=== PATIENT | female | born 1955 | race Caucasian/White ===

== ENCOUNTER 2016-09-30 15:53 | Emergency (ER) | payer BC | END 2016-09-30 16:30 | disposition left against medical advice (07) | LOC: UCEAST 15:53 | DX: M25.529 Pain in unspecified elbow (principal); M79.646 Pain in unspecified finger(s); Z53.21 Procedure and treatment not carried out due to patient leaving prior to being seen by health care provider ==

== ENCOUNTER 2019-03-18 09:41 | Emergency (ER) | payer OTHER ==
[2019-03-18 09:57] VITALS: BP 156/80
--- NOTE | 2019-03-18 10:14 | UC ---
General HPI - HPI Summary HPI Summary: CHIEF COMPLAINT and HPI: This is a 63-year-old female who comes to the urgent care Center with a complaint of increasing body aches, fever, slight sore throat , and frontal headache over the past 3 days. She works at [employer] and came home from work 3 days ago. She stayed home yesterday and she continues to feel achy, fatigued, and feverish. Although she is a one pack per day smoker, she denies chest pain, shortness of breath, increasing cough or other symptoms consistent with COPD. She has used albuterol inhaler in the past. She does have a history of hypertension and diabetes. VITAL SIGNS & SaO2 REVIEWED. Within normal limits unless noted here. 156/80; ojgvt=547; hict=985.8 NURSES NOTE REVIEWED: "Pt c/o flu-like sx: fever, chills that started last 03/16." - History of Current Complaint Chief Complaint: UCGeneralIllness Stated Complaint: FEVER Time Seen by Provider: 03/18/19 10:02 Hx Last Menstrual Period: Years. Pain Intensity: 6 - Allergy/Home Medications Allergies/Adverse Reactions: Allergies Allergy/AdvReac Type Severity Reaction Status Date / Time No Known Allergies Allergy Verified 03/18/19 09:49 Home Medications: Home Medications glipiZIDE TAB* [Glucotrol TAB*] 5 mg PO DAILY 03/18/19 [History Confirmed ] PMH/Surg Hx/FS Hx/Imm Hx - Additional Past Medical History Additional PMH: PAST MEDICAL HISTORY- CHRONIC and RECURRENT HEALTH PROBLEM LIST REVIEWED. Information relevant to present complaint: diabetes, one pack per day smoker, hypertension. VISIT HISTORY REVIEWED: MEDICATIONS & ALLERGIES REVIEWED. 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 Other History Of: Negative For: HIV, Hepatitis B, Hepatitis C - Surgical History Surgical History: Yes Surgery Procedure, Year, and Place: L-SPINE. . LASER LITHOTRIPSY FOR KIDNEY STONES - Family History Known Family History: Positive: None - Social History Alcohol Use: None Substance Use Type: None Smoking Status (MU): Heavy Every Day Tobacco Smoker Amount Used/How Often: 1 PPD Review of Systems All Other Systems Reviewed And Are Negative: Yes Constitutional: Positive: Fever, Chills, Fatigue Skin: Positive: Negative. Negative: Rash Eyes: Positive: Negative ENT: Positive: Negative Respiratory: Positive: Negative. Negative: Shortness Of Breath, Cough Cardiovascular: Positive: Negative. Negative: Palpitations, Chest Pain Gastrointestinal: Positive: Negative. Negative: Abdominal Pain, Vomiting, Nausea Genitourinary: Positive: Negative. Negative: Dysuria Motor: Positive: Negative Neurovascular: Positive: Negative Musculoskeletal: Positive: Negative Neurological: Positive: Headache - frontal headache, mild Is Patient Immunocompromised?: No Physical Exam - Summary Physical Exam Summary: Appearance: The patient is well-nourished. Patient is lying down and appears uncomfortable. Her neck is supple. She is normally conversant. Eyes: Conjunctiva are clear. Pupils are equal and reactive to light and accommodation. Extra ocular muscle movement is intact. ENT: The hearing is grossly normal, the pharynx is normal, and the TMs are normal. There is no muffled or hoarse voice. No stridor. Neck: The neck is supple and there is no lymphadenopathy. Respiratory: The chest is non-tender to palpation and without crepitus. The lungs are clear, there are normal breath sounds, and there is no respiratory distress. No wheezes, rales or rhonchi. Cardiovascular: Heart sounds reveal a regular rate and rhythm. There are no clicks, rubs or murmurs. There are no carotid bruits or thrills. Circulation is grossly intact.patient is tachycardic. Abdomen: The abdomen is soft and nontender. There is no organomegaly. Bowel sounds are present and within normal limits. No point tenderness at McBurneys point. No CVA tenderness. Musculoskeletal: Strength is intact. The patient moves all extremities. Neurological: The patient is alert. Motor and sensory are examination grossly intact. Speech is normal. Psychological: The patient displays age appropriate behavior, and is conversant. GCS=15. Skin: Negative for rashes. Triage Information Reviewed: Yes Vital Signs: Initial Vital Signs Temp 100.8 F 03/18/19 09:51 Pulse 125 03/18/19 09:51 Resp 20 03/18/19 09:51 BP 156/80 03/18/19 09:51 Pulse Ox 96 03/18/19 09:51 Course/Dx - Course Course Of Treatment: This is a 63-year-old female who comes to the urgent care Center with a complaint of increasing body aches, fever, slight sore throat, and frontal headache over the past 3 days. She works at [employer] and came home from work 3 days ago. She stayed home yesterday and she continues to feel achy, fatigued, and feverish. Although she is a one pack per day smoker, she denies chest pain, shortness of breath, increasing cough or other symptoms consistent with COPD. She has used albuterol inhaler in the past. She does have a history of hypertension and diabetes. VITAL SIGNS & SaO2 REVIEWED. Within normal limits unless noted here. 156/80; kifxq=612; qyva=008.8 RAPID STREP: NEGATIVE; FLU=NEGATIVE. NO ORTHOSTASIS on sitting and standing. My diagnosis is viral syndrome. I discussed this with patient and encouraged her to increase hydration and use ibuprofen and acetaminophen for discomfort. - Differential Dx - Multi-Symptom Differential Diagnoses: Urinary Tract Infection, Other - influenza, pneumonia, exacerbation of COPD, viral syndrome - Diagnoses Provider Diagnosis: Viral syndrome Discharge ED - Sign-Out/Discharge Documenting (check all that apply): Patient Departure All imaging exams completed and their final reports reviewed: No Studies - Discharge Plan Condition: Stable Disposition: HOME Patient Education Materials: Viral Syndrome (ED) Forms: *Work Release Referrals: Elissa Winkler MD [Primary Care Provider] - Additional Instructions: WE DISCUSSED: PLEASE SEEK CARE AT THE EMERGENCY DEPARTMENT IF SYMPTOMS WORSEN OR IF NEW SYMPTOMS DEVELOP. FOLLOW UP WITH YOUR PRIMARY CARE PHYSICIAN IF CONDITION CONTINUES BEYOND 3 DAYS WITHOUT IMPROVEMENT. YOUR DIAGNOSIS IS: viral syndrome. OTHER INSTRUCTIONS: Hypertension Discharge Instructions: Your blood pressure reading today was 156/80, indicating HYPERTENSION. Follow- up with your primary care provider within 4 weeks for blood pressure check and appropriate recommendations and treatment, as needed. TREATMENT: SEE ATTACHED INSTRUCTIONS. FOR PAIN AND/OR SLEEP: For pain: Ibuprofen (Motrin and other brand names) 400-600mg PLUS acetaminophen (Tylenol and other brand names) 500mg - 1000mg every 8 hours. benadryl, DIPHENHYDRAMINE, CAN ALSO HELP YOU SLEEP. - Billing Disposition and Condition Condition: STABLE Disposition: Home
[2019-03-18 10:35] LABS: Influenza A Molecular NEGATIVE (Negative); Influenza B Molecular NEGATIVE (Negative)
== END 2019-03-18 11:14 | disposition home or self-care (01) ==
LOC: UCEAST 09:41
DX: B34.9 Viral infection, unspecified (principal); R51 Headache
CPT/HCPCS: 87651; 99211; G0463

== ENCOUNTER 2019-03-18 19:20 | Inpatient (IN) | payer OTHER ==
[2019-03-18 22:21] LABS: Hematocrit 42 % (35-47); Mean Corpuscular HGB Conc 33 g/dL (31-36); Mean Corpuscular Hemoglobin 27 pg (27-31); Mean Corpuscular Volume 82 fL (80-97); Mean Platelet Volume 8.7 fL (7.4-10.4); Platelet Count 164 10^3/uL (150-450); Red Blood Count 5.11 10^6 /uL (3.70-4.87); Red Cell Distribution Width 14 % (10-15); White Blood Count 12.2 10^3/uL (3.5-10.8)
[2019-03-18 22:24] LABS: ABS Basophils 0.1 10^3/ul (0-0.2); ABS Lymphocytes 0.5 10^3/ul (1.0-4.8); ABS Monocytes 0.5 10^3/ul (0-0.8); ABS Neutrophils 11.1 10^3/ul (1.5-7.7)
[2019-03-18 22:30] LABS: INR 1.26 (0.82-1.09)
[2019-03-18 22:41] LABS: ALT 21 U/L (7-52); AST 26 U/L (13-39); Albumin 3.6 g/dL (3.2-5.2); Alkaline Phosphatase 63 U/L (34-104); Anion Gap 9 mmol/L (2-11); BUN/Creatinine Ratio 18.8 (8-20); Blood Urea Nitrogen 15 mg/dL (6-24); C Reactive Protein 399.05 mg/L (<8.01); CO2 Carbon Dioxide 21 mmol/L (22-32); Calcium 9.1 mg/dL (8.6-10.3); Chloride 95 mmol/L (101-111); EGFR African American 87.9 (>60); EGFR Non-African American 72.7 (>60); Globulin 3.5 g/dL (2-4); Glucose 287 mg/dL (70-100); Potassium 3.8 mmol/L (3.5-5.0); Sodium 125 mmol/L (135-145); Total Protein 7.1 g/dL (6.4-8.9)
[2019-03-18 22:45] LABS: Lymphocyte % 4.2 %
[2019-03-18] MEDS ORDERED: Acetaminophen TAB* 325 MG PO ONE (22:56)
[2019-03-18] MEDS ORDERED: cefTRIAXone(*) 2 GM in NS 0.9% 100 ML* 100 ML IVPB ONE (22:57)
--- NOTE | 2019-03-18 23:01 | ED ---
Abdominal Pain/Female - HPI Summary HPI Summary: The patient is a 63 y/o F presenting to [facility] accompanied by grandson with a chief complaint of sudden onset left flank and low left back pain onset at 1700 tonight. She reports that she has been suffering from a head cold with symptoms including a cough, rhinorrhea, and sinus congestion. She went to [facility] for these symptoms this morning, and she was diagnosed with a viral infection and discharged home. She then went home and took a nap but woke up with left flank pain. She is now additionally c/o fever, weakness, mild SOB, and decreased appetite. Currently, her symptoms are rated 4/10 in severity. PMHx : DM, HTN, kidney stones with lithotripsy. Heavy everyday cigarette smoker, no EtOH, no substance use. Medications reviewed. Allergies noted. - History of Current Complaint Chief Complaint: EDFlankPain Stated Complaint: THINKS SHE HAS A KIDNEY INF PER PT Time Seen by Provider: 03/18/19 22:49 Hx Obtained From: Patient, Family/Display Associate - grandson Hx Last Menstrual Period: Years. Onset/Duration: Sudden Onset - flank and back pain, Lasting Hours, Still Present Timing: Hours Severity Initially: Mild Severity Currently: Moderate Pain Intensity: 4 Pain Scale Used: 0-10 Numeric Location: Flank - left Radiates: Yes Radiates to: Back - low left Character: Dull Aggravating Factor(s): Nothing Alleviating Factor(s): Nothing Associated Signs and Symptoms: Positive: Fever, Cough, Decreased Appetite, Other : - weakness, mild SOB, rhinorrhea, sinus congestion Allergies/Adverse Reactions: Allergies Allergy/AdvReac Type Severity Reaction Status Date / Time No Known Allergies Allergy Verified 03/18/19 19:27 PMH/Surg Hx/FS Hx/Imm Hx Endocrine/Hematology History: Reports: Hx Diabetes Denies: Hx Thyroid Disease Cardiovascular History: Reports: Hx Hypertension Denies: Hx Congestive Heart Failure, Hx Deep Vein Thrombosis, Hx Myocardial Infarction, Hx Pacemaker/ICD Respiratory History: Denies: Hx Asthma, Hx Chronic Obstructive Pulmonary Disease (COPD), Hx Lung Cancer, Hx Pneumonia, Hx Pulmonary Embolism GI History: Denies: Hx Gall Bladder Disease, Hx Gastrointestinal Bleed, Hx Ulcer, Hx Urosepsis History: Reports: Hx Kidney Stones Denies: Hx Renal Disease Musculoskeletal History: Denies: Hx Osteoporosis Opthamlomology History: Reports: Hx Contacts or Glasses Neurological History: Denies: Hx Dementia, Hx Migraine, Hx Seizures, Hx Transient Ischemic Attacks (TIA) Psychiatric History: Denies: Hx Anxiety, Hx Depression, Hx Schizophrenia, Hx Bipolar Disorder - Cancer History Hx Chemotherapy: No Hx Radiation Therapy: No - Surgical History Surgical History: Yes Surgery Procedure, Year, and Place: L-SPINE. . LASER LITHOTRIPSY FOR KIDNEY STONES Infectious Disease History: No Infectious Disease History: Denies: History Other Infectious Disease, Traveled Outside the [place] in Last 30 Days - Family History Known Family History: Negative: Cardiac Disease, Hypertension, Diabetes - Social History Alcohol Use: None Hx Substance Use: No Substance Use Type: Reports: None Hx Tobacco Use: Yes Smoking Status (MU): Heavy Every Day Tobacco Smoker Type: Cigarettes Amount Used/How Often: 1 PPD Review of Systems Positive: Fever Positive: Other - rhinorrhea, sinus congestion Positive: Shortness Of Breath, Cough Positive: Other - decreased appetite Positive: flank pain - left Positive: Other - low left back pain Positive: Weakness All Other Systems Reviewed And Are Negative: Yes Physical Exam - Summary Physical Exam Summary: Appearance: Ill-appearing, Well-nourished, lying in bed comfortably but somewhat somnolent although easy to arouse Skin: Warm, dry, no obvious rash Eyes: sclera anicteric, no conjunctival pallor ENT: mucous membranes moist, pharynx appears normal Neck: Supple, nontender Respiratory: Clear to auscultation, no signs of respiratory distress Cardiovascular: Tachycardic in mid 120s. No murmurs. Normal distal pulses in tibial and radial bilaterally. Abdomen: Soft, nontender, normal active bowel sounds present Musculoskeletal: No CVA tenderness, Normal, Strength/ROM Intact Neurological: A&Ox3, awake and alert, mentation is normal, speech is fluent and appropriate Psychiatric: affect is normal, does not appear anxious or depressed Triage Information Reviewed: Yes Vital Signs On Initial Exam: Initial Vitals Temp Pulse Resp BP Pulse Ox 102.1 F 138 20 153/97 95 03/18/19 19:26 03/18/19 19:26 03/18/19 19:26 03/18/19 19:26 03/18/19 19:26 Vital Signs Reviewed: Yes Diagnostics - Vital Signs Vital Signs Temp Pulse Resp BP Pulse Ox 09/21/19 19:26 102.1 F 138 20 153/97 95 - Laboratory Lab Results: Lab Results 03/18/19 03/18/19 03/18/19 Range/Units 22:05 22:05 22:05 WBC 12.2 H (3.5-10.8) 10^3/uL RBC 5.11 H (3.70-4.87) 10^6 /uL Hgb 14.0 (12.0-16.0) g/dL Hct 42 (35-47) % MCV 82 (80-97) fL MCH 27 (27-31) pg MCHC 33 (31-36) g/dL RDW 14 (10-15) % Plt Count 164 (150-450) 10^3/uL MPV 8.7 (7.4-10.4) fL Neut % (Auto) 91.2 % Lymph % (Auto) 4.2 % [place] % (Auto) 4.2 % Eos % (Auto) 0.0 % Baso % (Auto) 0.4 % Absolute Neuts (auto) 11.1 H (1.5-7.7) 10^3/ul Absolute Lymphs (auto) 0.5 L (1.0-4.8) 10^3/ul Absolute Monos (auto) 0.5 (0-0.8) 10^3/ul Absolute Eos (auto) 0.0 (0-0.6) 10^3/ul Absolute Basos (auto) 0.1 (0-0.2) 10^3/ul Absolute Nucleated RBC 0.0 10^3/ul Nucleated RBC % 0.0 INR (Anticoag Therapy) 1.26 H (0.82-1.09) Sodium 125 L (135-145) mmol/L Potassium 3.8 (3.5-5.0) mmol/L Chloride 95 L (101-111) mmol/L Carbon Dioxide 21 L (22-32) mmol/L Anion Gap 9 (2-11) mmol/L BUN 15 (6-24) mg/dL Creatinine 0.80 (0.51-0.95) mg/dL Est GFR ( Amer) 87.9 (>60) Est GFR (Non-Af Amer) 72.7 (>60) BUN/Creatinine Ratio 18.8 (8-20) Glucose 287 H (70-100) mg/dL Lactic Acid (0.5-2.0) mmol/L Calcium 9.1 (8.6-10.3) mg/dL Total Bilirubin 0.40 (0.2-1.0) mg/dL AST 26 (13-39) U/L ALT 21 (7-52) U/L Alkaline Phosphatase 63 (34-104) U/L Troponin I 0.10 H* (<0.04) ng/mL C-Reactive Protein 399.05 H (<8.01) mg/L Total Protein 7.1 (6.4-8.9) g/dL Albumin 3.6 (3.2-5.2) g/dL Globulin 3.5 (2-4) g/dL Albumin/Globulin Ratio 1.0 (1-3) 03/18/19 Range/Units 22:05 WBC (3.5-10.8) 10^3/uL RBC (3.70-4.87) 10^6 /uL Hgb (12.0-16.0) g/dL Hct (35-47) % MCV (80-97) fL MCH (27-31) pg MCHC (31-36) g/dL RDW (10-15) % Plt Count (150-450) 10^3/uL MPV (7.4-10.4) fL Neut % (Auto) % Lymph % (Auto) % [place] % (Auto) % Eos % (Auto) % Baso % (Auto) % Absolute Neuts (auto) (1.5-7.7) 10^3/ul Absolute Lymphs (auto) (1.0-4.8) 10^3/ul Absolute Monos (auto) (0-0.8) 10^3/ul Absolute Eos (auto) (0-0.6) 10^3/ul Absolute Basos (auto) (0-0.2) 10^3/ul Absolute Nucleated RBC 10^3/ul Nucleated RBC % INR (Anticoag Therapy) (0.82-1.09) Sodium (135-145) mmol/L Potassium (3.5-5.0) mmol/L Chloride (101-111) mmol/L Carbon Dioxide (22-32) mmol/L Anion Gap (2-11) mmol/L BUN (6-24) mg/dL Creatinine (0.51-0.95) mg/dL Est GFR ( Amer) (>60) Est GFR (Non-Af Amer) (>60) BUN/Creatinine Ratio (8-20) Glucose (70-100) mg/dL Lactic Acid 1.9 (0.5-2.0) mmol/L Calcium (8.6-10.3) mg/dL Total Bilirubin (0.2-1.0) mg/dL AST (13-39) U/L ALT (7-52) U/L Alkaline Phosphatase (34-104) U/L Troponin I (<0.04) ng/mL C-Reactive Protein (<8.01) mg/L Total Protein (6.4-8.9) g/dL Albumin (3.2-5.2) g/dL Globulin (2-4) g/dL Albumin/Globulin Ratio (1-3) Result Diagrams: 03/20/19 05:20 03/20/19 05:20 Lab Statement: Any lab studies that have been ordered have been reviewed, and results considered in the medical decision making process. - Radiology CXR Radiology Interpretation Completed By: ED Physician Summary of Radiographic Findings: Possible right lower lobe PNA seen on the lateral view with loss of hemidiaphragm. ED physician has interpreted this report. Pending official read. - CT Abd/Pel CT CT Interpretation Completed By: Radiologist Summary of CT Findings: Impression: 1. Right lower lobe pneumonia. 2. Moderate hepatic steatosis (14-28% fat fraction). 3. Indeterminate right adrenal nodule. If patient has no cancer history, consider follow-up adrenal CT or resection. If patient has a history of cancer, consider biopsy or PET/CT for patients with cancer history. ED physician has reviewed this report. - EKG 2355 Cardiac Rate: Other Rate - 133 bpm Summary of EKG Findings: EKG at 2355 with rate of 133 bpm and unclear rhythm, possible MAT. No STEMI. Re-Evaluation - Re-Evaluation First Eval Re-Evaluation Time: 01:35 Comment: We discussed all results with plan for admission. Abdominal Pain Fem Course/Dx - Course Course Of Treatment: Pt is a 63 y/o F with cc of URI symptoms and new onset left flank and low left back pain at 1700 tonight accompanied by fever, weakness , mild SOB, and decreased appetite. Upon physical exam, the pt is ill-appearing and somewhat somnolent but easily arousable without any CVA tenderness, although she exhibits tachycardia in the mid 120s. Blood work reveals WBCs 12.2 , RBCs 5.11, abs netus 11.1, abs lymphs 0.5, INR 1.26, ssdium 125, chloride 95, carbon dioxide 21, glucose 287, troponin 0.10, and CRP 399.05. UA obtained and is consistent with infection revealing 3+ protein, 1+ ketones, 2+ blood, 3+ RBCs , presence of RBCs casts, and 3+ glucose. EKG at 2355 with rate of 133 bpm and unclear rhythm, possible MAT. Chest x-ray, per my interpretation, reveals possible right lower lobe PNA seen on the lateral view with loss of hemidiaphragm. Abdomen/Pelvic CT reveals right lower lobe PNA with moderate hepatic steatosis and indeterminate right adrenal nodule. I discussed the pts case with Dr. Diaz, hospitalist, and he accepts the pt for admission. She understands and agrees with this plan. Dx is right lower lobe PNA. 40 minutes CCT. - Diagnoses Provider Diagnoses: Right lower lobe pneumonia - Provider Notifications Discussed Care Of Patient With: Jaswinder Diaz - hospitalist Time Discussed With Above Provider: 01:30 Instructed by Provider To: Admit As Observation - After discussing the pt's case , Dr. Diaz accepts the pt for admission. - Critical Care Time Critical Care Time: 30-74 min - 40 minutes Discharge ED - Sign-Out/Discharge Documenting (check all that apply): Patient Departure - Patient accepted for admission by Dr. Diaz. Patient Received Moderate/Deep Sedation with Procedure: No - Discharge Plan Condition: Stable Disposition: ADMITTED TO [facility] - Billing Disposition and Condition Condition: STABLE Disposition: Admitted to [facility] - Attestation Statements Document Initiated by Scribe: Yes Documenting Scribe: Danica Jamison Provider For Whom Maribel is Documenting (Include Credential): Dr. Chidi Morton MD Scribe Attestation: Danica Oconnell, scribed for Dr. Chidi Morton MD on 03/20/19 at 0649. Scribe Documentation Reviewed: Yes Provider Attestation: The documentation as recorded by the [email or web address] accurately reflects the service I personally performed and the decisions made by me, Dr. Chidi Morton MD Status of Scribe Document: Viewed
[2019-03-18 23:34] LABS: Urine Appearance Cloudy; Urine Bacteria Absent (Absent); Urine Bilirubin Negative (Negative); Urine Blood 2+ (Negative); Urine Color Amber; Urine Glucose 3+(>=500 mg/dL) (Negative); Urine Ketones 1+ (Negative); Urine Nitrite Negative (Negative); Urine Protein 3+(>=500 mg/dL) (Negative); Urine Red Blood Cell 3+(>10/hpf) (Absent); Urine Red Blood Cell Casts Present (Absent); Urine Specific Gravity 1.028 (1.010-1.030); Urine Urobilinogen Negative (Negative); Urine White Blood Cell Trace(0-5/hpf) (Absent)
[2019-03-19] MEDS ORDERED: NS 0.9% 1000 ML** 2,000 ML IV ONE (00:04)
[2019-03-19] MEDS ORDERED: Azithromycin 500 mg/250 ml NS 500 MG/250 ML BAG IVPB ONE (00:29)
[2019-03-19] MEDS ORDERED: Albuterol/Ipratropium NEB.SOL* Albuterol 2.5 MG/Ipratropium 0.5 MG 3 ML ONE (04:48)
[2019-03-19] MEDS: Albuterol/Ipratropium NEB.SOL* Albuterol 2.5 MG/Ipratropium 0.5 MG 3 ML INH SCH ×2 (04:53→07:38)
[2019-03-19] MEDS ORDERED: Dextrose 50% VIAL 50 ml IV PUSH PRN (04:59)
[2019-03-19] MEDS ORDERED: methylPREDNISolone SOD 40 MG* 1 ML VIAL IV SCH (05:00)
[2019-03-19 05:08] LABS: ABS Lymphocytes 0.6 10^3/ul (1.0-4.8); ABS Monocytes 0.4 10^3/ul (0-0.8); ABS Neutrophils 9.4 10^3/ul (1.5-7.7); Eosinophil % 0.1 %; Hematocrit 40 % (35-47); Lymphocyte % 6.2 %; Mean Corpuscular HGB Conc 35 g/dL (31-36); Mean Corpuscular Hemoglobin 29 pg (27-31); Mean Corpuscular Volume 83 fL (80-97); Mean Platelet Volume 8.6 fL (7.4-10.4); Nucleated Red Blood Cells % 0.1; Platelet Count 140 10^3/uL (150-450); Red Blood Count 4.88 10^6 /uL (3.70-4.87); Red Cell Distribution Width 14 % (10-15); White Blood Count 10.4 10^3/uL (3.5-10.8)
[2019-03-19 05:27] LABS: Anion Gap 10 mmol/L (2-11); BUN/Creatinine Ratio 21.4 (8-20); Blood Urea Nitrogen 15 mg/dL (6-24); CO2 Carbon Dioxide 18 mmol/L (22-32); Calcium 8.1 mg/dL (8.6-10.3); Chloride 103 mmol/L (101-111); Cholesterol 97 mg/dL; EGFR African American 102.6 (>60); EGFR Non-African American 84.8 (>60); Glucose 228 mg/dL (70-100); HDL Cholesterol 45.6 mg/dL; LDL Cholesterol 28 mg/dL; Potassium 3.8 mmol/L (3.5-5.0); Sodium 131 mmol/L (135-145); Triglycerides 115 mg/dL
[2019-03-19] MEDS: Acetaminophen TAB* 325 MG PO PRN ×3 (05:28→20:23)
[2019-03-19 05:38] LABS: Troponin I 0.06 ng/mL (<0.04)
[2019-03-19] MEDS: Lactated Ringers 1000 ML Bag* 1,000 ML IV SCH ×2 (06:04→15:45)
[2019-03-19] MEDS: Enoxaparin(*) 40 MG/0.4 ML SYR SUBCUT SCH (06:04)
[2019-03-19] MEDS ORDERED: Diltiazem IV push/loading dose 5 MG/ML 5 ML vial (25 mg) IV SLOW PU ONE (06:32)
[2019-03-19] MEDS: Mometasone 220 MCG MDI INH SCH ×2 (07:38→20:05)
[2019-03-19] MEDS: Losartan TAB* 25 MG PO SCH ×2 (08:36→20:24)
[2019-03-19] MEDS: Insulin LISPRO* 1 UNITS UNIT SUBCUT SCH ×5 (08:37→20:26)
[2019-03-19] MEDS: Diltiazem TAB* 60 MG PO SCH ×2 (08:38→14:37)
[2019-03-19] MEDS ORDERED: Potassium Chlor TAB* 20 MEQ TAB.ER PO ONE (08:44)
[2019-03-19] MEDS ORDERED: Diltiazem TAB* 60 MG PO SCH (09:00)
[2019-03-19 09:05] LABS: Magnesium 1.8 mg/dL (1.9-2.7)
--- NOTE | 2019-03-19 09:22 | HP ---
CC: Elissa Winkler MD ADMISSION HISTORY AND PHYSICAL: DATE OF ADMISSION: 03/19/19 CHIEF COMPLAINT: Fever and back pain. HISTORY OF PRESENT ILLNESS: This is a 63-year-old female with past medical history of diabetes, hype rtension, dyslipidemia, osteoporosis, history of kidney stones, came in with the complaint of back pa in. She thought she was having another kidney stone. She also stated that she has been having on an d off fever and feeling dehydrated accompanied by some dry cough. The only sick contact is her grand son who lives with her, who is 17 years old, who was recently having a coughing spell and upper respi ratory tract infection. The patient otherwise offers no complaints of urinary tract infection such a s burning sensation or pain with urination. The back pain that she was complaining about was the low mid back pain, nonradiating. She offers no chest pain, no palpitations, and she denied any history o f COPD even though the patient was on some albuterol and Flovent HFA at home. She states that that w as only given to her for bronchitis episode, and she only uses it intermittently. PAST MEDICAL HISTORY: As mentioned, diabetes, hypertension, dyslipidemia, osteoporosis, kidney stone s with multiple stents. She has a history of bronchitis, but not compliant with her fluticasone or a lbuterol. She denies any history of COPD stating that about a year ago she had a pulmonary function test, which stated that she did not have any COPD. She is still an active smoker, smokes about a pac k a day. PAST SURGICAL HISTORY: As mentioned, she had the stent. She also has a history of . HOME MEDICATIONS: The patient currently on: 1. Glipizide 5 mg oral daily. 2. Losartan 25 mg p.o. b.i.d. 3. Lipitor 10 mg p.o. daily. 4. Alendronate 70 mg p.o. weekly. 5. The fluticasone and the albuterol she only takes as p.r.n., has not used it for many days. ALLERGIES: No known drug allergies. FAMILY HISTORY: Dad at age 68, mom at 78. Both of them had lung cancer. SOCIAL HISTORY: The patient has a 60-jene-blos history of smoking and still smokes about a pack a da y. Denies any alcohol or drug use. Lives with her boyfriend and grandson. 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 Is a full code and states that her boyfriend Michael would be her surrogate decision maker if she is confused. REVIEW OF SYSTEMS: A 14-point review of systems did not reveal any new information other than what i s mentioned in the HPI. PHYSICAL EXAMINATION GENERAL: The patient is awake, alert, and oriented x3. Does not appear to be in any acute respirato ry distress. VITAL SIGNS: In the ER, temperature max was documented at 102.9, BP was noted to be 142/82, heart ra te was noted to be fluctuating from [address] up to 142 with an irregular rate, respiratory rat e was noted to be 24, saturating 88% to 90% on room air, but improved to 98% saturation on 3 L nasal cannula. HEAD AND NECK: Atraumatic and normocephalic. Bilateral pupils are reactive. Oral mucosa is moist. NECK: Supple. No jugular venous distention. LUNGS: The patient had diffuse rhonchi and wheezes in all lung allen. I could not appreciate any c rackles. HEART: S1 and S2. Irregularly irregular, tachycardic without any appreciable murmurs. ABDOMEN: Soft, nontender, nondistended. EXTREMITIES: No cyanosis, clubbing, or edema. LABORATORY DATA: CBC shows elevated white count of 12.2, hemoglobin and hematocrit were stable, tobi telet count was stable at 164. Coagulation profile 1.26. Complete metabolic panel shows sodium of 1 25, chloride 95, bicarb minimally decreased at 21. Creatinine was 0.8, troponin was noted at 0.1. C- reactive protein elevated. Random glucose was elevated at 287. Lactic acid was noted to be normal. U rinalysis was negative for any leuk esterase or nitrites, was positive for 2+ blood, 1+ ketones, and 3+ protein. Portable chest x-ray: I could not appreciate any pneumonia, but official read by radiologist is laquita miguel pending. CT abdomen and pelvis was read as right lower lobe pneumonia and moderate hepatic steatosis and inter mediate right adrenal nodule. IMPRESSION: This is a 63-year-old female with diabetes, hypertension, dyslipidemia, here with fever, noted to have right lower lobe pneumonia. ASSESSMENT: 1. Sepsis secondary to right lower lobe pneumonia. We will start the patient on ceftriaxone and juan thromycin to cover for any community acquired pneumonia and monitor the patient's cultures of sputum and blood. 2. Hypoxic respiratory failure, likely secondary to pneumonia, questionable component of chronic obs tructive pulmonary disease given the diffuse wheezing. We will treat as the patient has chronic obst ructive pulmonary disease exacerbation given history of chronic smoking with 14-cunb-cewb history. F or now, we will start the patient on steroids, DuoNeb, and the antibiotics as mentioned previously. 3. Tachycardia. It is unclear if it just sinus arrhythmia versus multifocal atrial tachycardia. We will follow up an echocardiogram and get serial cardiac enzymes and consider a cardiology consult if necessary. It could also be just secondary to sepsis, provoked from sepsis that the patient is havi ng, and once the fever subsides, it should get better. 4. Hepatic steatosis likely secondary to nonalcoholic liver disease. 5. Right adrenal nodule. We will consider followup with an adrenal CT on discharge. 6. History of diabetes. We will start the patient on insulin sliding scale. 7. History of hypertension. Restart home medication. 8. History of dyslipidemia. Restart home medication. 9. DVT prophylaxis with subcu Lovenox. 10. Code status: Full code with boyfriend being the surrogate decision maker. [id number]/CPS #: [id number]
--- NOTE | 2019-03-19 14:10 | ECHO ---
[place] [address] Fax #: [phone] Transthoracic Echocardiogram Patient: Karla Gary : 1955 Study Date: 03/19/2019 Age: 63 Gender: F HR: 97 bpm Height: 62 in /157.5 cm BSA: 1.64 m^2 Weight: 139.7 lb /63.5 kg BMI: 25.6 kg/m^2 *[employer] General Supervisor: * Katy Rodriguez RDCS RN *Referring Physician: * Jaswinder Diaz *Reading Physician: * Eugene Serrano MD Indications: Abnormal EKG. History: Admitted with pneumonia. Risk factors: Current tobacco use. Hypertension. Diabetes mellitus. Conclusions Summary: - Left ventricle: The cavity size is mildly reduced. Wall thickness is mildly increased. Systolic function is normal. The estimated ejection fraction is 60-65%. Wall motion is normal; there are no regional wall motion abnormalities. - Right ventricle: The cavity size is normal. Systolic function is normal. - Left atrium: The atrium is normal in size. - No significant valvular abnormalities notede. Study data: Transthoracic echocardiogram. Procedure: Transthoracic echocardiography was performed. Image quality was fair. The study was technically limited due to smoking history. Complete 2D, spectral Doppler, and color flow Doppler. Location: Bedside. Patient status: Inpatient. Patient room number: 448-01. Rhythm: Normal sinus rhythm. Findings Left ventricle: The cavity size is mildly reduced. Wall thickness is mildly increased. Systolic function is normal. The estimated ejection fraction is 60-65%. Wall motion is normal; there are no regional wall motion abnormalities. There is no consistent Doppler evidence of clinically significant diastolic dysfunction. Right ventricle: The cavity size is normal. Systolic function is normal. Left atrium: The atrium is normal in size. Right atrium: The atrium is normal in size. Mitral valve: The leaflets are mildly thickened. There is no evidence of stenosis. There is trace regurgitation. Aortic valve: The valve is trileaflet. The leaflets are mildly thickened. There is no evidence of stenosis. There is no regurgitation. Tricuspid valve: The valve is structurally normal. There is no evidence of stenosis. There is trace to mild regurgitation. Pulmonic valve: The valve is structurally normal. There is no evidence of stenosis. There is trace regurgitation. Aorta: Aortic root: The aortic root is appears normal. Ascending aorta: The ascending aorta is not dilated. Aortic arch: The aortic arch is not dilated. Pericardium: There is no pericardial effusion. Pulmonary arteries: The main pulmonary artery is normal-sized. Systolic pressure can not be accurately estimated. Systemic veins: Inferior vena cava: The vessel is normal in size. There is (>= 50%) respiratory change in the IVC dimension. Measurements Left ventricle Value Ref Aortic valve Value Ref MALLIKA, LAX (L) 3.7 cm 3.8 - 5.2 Pia diam, ED 1.8 cm ---- ESD, LAX 2.4 cm 2.2 - 3.5 Peak v, S 1.63 m/sec ---- FS, LAX 35 % 27 - 45 VTI, S 29.6 cm ---- PW, ED (H) 1.1 cm 0.6 - 0.9 Mean grad, S 6.0 mm Hg ---- IVS/PW, ED 0.94 Peak grad, S 11.0 mm Hg ---- E', lat pia, TDI (L) 8.4 cm/sec >=10.0 LVOT/AV, VTI ratio 0.72 -- -- E/e', lat pia, 12 TDI Mitral valve Value Ref E', med pia, TDI (L) 6.5 cm/sec >=7.0 Peak E 1 m/sec -- -- E/e', med pia, 15 Peak A 0.78 m/sec ---- TDI Decel time 183 ms ---- E', avg, TDI 7.5 cm/sec Peak grad, D 4.0 mm Hg ---- E/e', avg, TDI 13 <=14 Peak E/A ratio 1.3 -- -- LVOT Value Ref Pulmonic valve Value Ref Peak jose, S 1.09 m/sec Peak v, S 0.95 m/sec ---- VTI, S 21.2 cm Peak grad, S 4.0 mm Hg ---- Mean grad, S 3 mm Hg Aortic root Value Ref Ventricular septum Value Ref Root diam 2.5 cm <3.9 IVS, ED (H) 1.1 cm 0.6 - 0.9 Ascending aorta Value Ref Right ventricle Value Ref AAo AP diam, S 3.2 cm ---- MALLIKA, LAX 2.6 cm MALLIKA minor ax, A4C 2.7 cm 1.9 - 3.5 Aortic arch Value Ref mid Arch diam 2.4 cm ---- Left atrium Value Ref Decending aorta Value Ref AP dim, ES 3.20 cm 2.70 - Samara peak jose 0.74 m/sec ---- 3.80 ML dim, A4C 3.3 cm Inferior vena cava Value Ref SI dim, A4C 4.6 cm Diam 1.8 cm ---- Vol/bsa, ES, 1-p 19 ml/m^2 11 - 40 A4C Vol/bsa, ES, A/L 22 ml/m^2 16 - 34 Right atrium Value Ref ML dim, ES, A4C 3.5 cm 2.6 - 4.4 SI dim, ES, A4C 4.5 cm 3.4 - 5.3 Estimated RAP 3 mm Hg Legend: (L) and (H) dasia values outside specified reference range. Prepared and electronically signed by Eugene eSrrano MD 03/19/2019 14:09
[2019-03-19] MEDS ORDERED: Magnesium Sulfate 2 GM IV* 2 GM/50 ML BAG IVPB ONE (16:25)
--- NOTE | 2019-03-19 16:55 | PN ---
Hospitalist Progress Note Date of Service: 03/19/19 Brief update: Admitted this AM. Legionella Ag came back positive. Still with tachycardia from MAT, likely from PNA (on top of possible COPD). Patient reports feeling significantly better, only with a "little cough", nonproductive. No chest pain or SOB. Denies current fevers, chills, n/v/c/d or abdominal pain. well appearing, nad, no increased WOB tachycardic, reg rhythm, no mgr bibasilar coarse crackles abd soft nt no LE edema Hyponatremia improving. A/P 63W with HTN, DM2, presenting with fevers and flank pain, found with hyponatremia, Leg Ag positive, and CT A/P concerning for PNA. CURB-65 score is 0 , but PSA is Class IV, so will cont treatment in hospital with IV antibiotics. - stop CTX, continue on Azithro IV alone - cont dilt PO 60 q6h and monitor on tele, reviewed case with Cardiology and recommended to titrate off as underlying disease is treated, cont IVF for now too
[2019-03-19] MEDS: Atorvastatin* 10 MG TAB PO SCH (20:24)
[2019-03-19] MEDS: Diltiazem TAB* 30 MG PO SCH (20:24)
[2019-03-19] MEDS ORDERED: cefTRIAXone(*) 1 GM in NS 0.9% 50 ML* 50 ML IVPB SCH (23:00)
[2019-03-20] MEDS: Azithromycin 500 mg/250 ml NS 500 MG/250 ML BAG IVPB SCH (00:05)
[2019-03-20] MEDS: Diltiazem TAB* 30 MG PO SCH ×4 (01:43→20:05)
[2019-03-20 06:05] LABS: ABS Lymphocytes 0.4 10^3/ul (1.0-4.8); ABS Monocytes 0.3 10^3/ul (0-0.8); Hematocrit 35 % (35-47); Hemoglobin 11.8 g/dL (12.0-16.0); Lymphocyte % 4.2 %; Mean Corpuscular HGB Conc 34 g/dL (31-36); Mean Corpuscular Hemoglobin 28 pg (27-31); Mean Corpuscular Volume 83 fL (80-97); Mean Platelet Volume 8.9 fL (7.4-10.4); Platelet Count 152 10^3/uL (150-450); Red Blood Count 4.25 10^6 /uL (3.70-4.87); Red Cell Distribution Width 14 % (10-15); White Blood Count 8.6 10^3/uL (3.5-10.8)
[2019-03-20] MEDS: Enoxaparin(*) 40 MG/0.4 ML SYR SUBCUT SCH (06:06)
[2019-03-20] MEDS ORDERED: Diltiazem IV push/loading dose 5 MG/ML 5 ML vial (25 mg) IV PUSH ONE (06:18)
[2019-03-20 06:34] LABS: Calcium 7.9 mg/dL (8.6-10.3); EGFR African American 115.9 (>60); EGFR Non-African American 95.8 (>60); Magnesium 2.2 mg/dL (1.9-2.7); Potassium 4.1 mmol/L (3.5-5.0)
[2019-03-20] MEDS: Albuterol/Ipratropium NEB.SOL* Albuterol 2.5 MG/Ipratropium 0.5 MG 3 ML INH PRN (06:57)
[2019-03-20] MEDS: Acetaminophen TAB* 325 MG PO PRN ×3 (06:58→21:39)
[2019-03-20] MEDS: Mometasone 220 MCG MDI INH SCH ×2 (07:23→19:25)
--- NOTE | 2019-03-20 08:41 | PN ---
Hospitalist Progress Note Date of Service: 03/20/19 Subjective- Pt has main complaint of difficulty to breath along with congestion and cough. Pt agreed to stop smoking. No overnight events. Objective- GENERAL: Pt appears uncomfortable. The patient is awake, alert, and oriented x3. HEAD AND NECK: Atraumatic and normocephalic. Bilateral pupils are reactive. Oral mucosa is moist. NECK: Supple. No jugular venous distention. LUNGS: The patient had diffuse rhonchi and wheezes in all lung allen. HEART: S1 and S2. Irregularly irregular, tachycardic without any appreciable murmurs. ABDOMEN: Soft, nontender, nondistended. EXTREMITIES: No cyanosis, clubbing, or edema. Vitals Temperature- 97.6 C Pulse rate-95 Resp. rate- 18 O2 sat.- 94 BP- 105/59 Hgb-11.8 abs neutrophils- 8.0 abs monocytes-.4 Na-132 BUN/creatinine- 27.0 glucose-116 poc glucose- 135 calcium- 7.9 EKG- atrial fibrillation Assessment/Plan- Pt is a 63yr old female with past medical hx of diabetes, htn, dyslipidemia, osteoporosis, bronchitis, kidney stones w/ multiple stents. Pt presented with fevers and flank pain with hyponatremia and is Legionella positive and CT shows PNA. 1. Sepsis secondary to right lower lobe pneumonia due to Legionella -Azithromycin 500mg in 250 mls IV 2. Hypoxic respiratory failure, likely secondary to pneumonia, questionable component of chronic obstructive pulmonary disease given the diffuse wheezing. We will treat as the patient has chronic obstructive pulmonary disease exacerbation given history of chronic smoking with 99-mrtq-cwse history. For now, we will start the patient on steroids. -Prednisone 40 mg PO daily - Albuterol/ipratropium - 1 neb INH RT Q4 hrs PRN 3. Has atrial fibrillation and [id number] risk of 2 - diltiazem 30mg PO Q6H -Rivaroxaban 20mg PO QPM RAFAL 4. Hepatic steatosis likely secondary to nonalcoholic liver disease. 5. Right adrenal nodule. We will consider followup with an adrenal CT on discharge. 6. History of diabetes. -Lispro 0 units subcut -Glipizide 5mg oral daily 7. History of hypertension. Losartan 25 mg po 8. History of dyslipidemia. atorvastatin-10mg po daily 9. Osteoporosis -alendronate 70 mg po weekly 10. DVT prophylaxis -Enoxaparin 40 mg subcut 11. Smoking cessation -pt agreed to nicotine patch 21mg(1 patch
[2019-03-20] MEDS: Insulin LISPRO* 1 UNITS UNIT SUBCUT SCH ×4 (08:59→20:36)
[2019-03-20] MEDS: Losartan TAB* 25 MG PO SCH (09:00)
[2019-03-20] MEDS: Diltiazem IV push/loading dose 5 MG/ML 5 ML vial (25 mg) IV SLOW PU ONE ×2 (09:00→10:13)
[2019-03-20] MEDS: predniSONE TAB* 20 MG PO SCH (09:00)
[2019-03-20] MEDS: Lactated Ringers 1000 ML Bag* 1,000 ML IV SCH ×2 (11:40→20:14)
[2019-03-20] MEDS: Nicotine PATCH 21 MG/24 HR* PATCH TRANSDERM SCH (13:48)
--- NOTE | 2019-03-20 16:39 | PN ---
Subjective Date of Service: 03/20/19 Interval History: Pt had one episode of tachycardia with SOB and flushing. Telemetry showed atrial flutter pattern with HR 150. She missed one diltiazem dose overnight due to borderline BP. Still spiked fever in the last 24 hours. In general, pt felt her dyspnea and cough improved. Objective Active Medications: Acetaminophen (Tylenol Tab*) 975 mg PO Q8H PRN PRN Reason: MILD PAIN or TEMP > 100.4 Last Admin: 03/20/19 15:25 Dose: 975 mg Albuterol/Ipratropium (Duoneb (Albuterol 2.5 Mg/Ipratropium 0.5 Mg)) 1 neb INH RT.[id number] AWAKE PRN PRN Reason: SOB/WHEEZING Last Admin: 03/20/19 06:57 Dose: 1 neb Atorvastatin Calcium (Lipitor*) 10 mg PO BEDTIME [facility] Last Admin: 03/19/19 20:24 Dose: 10 mg Dextrose (Dextrose 50% Vial 50 Ml*) 25 ml IV PUSH .FOR FS < 60 - SS PRN PRN Reason: FS < 60 Diltiazem HCl (Cardizem Tab*) 30 mg PO Q6H [facility] Last Admin: 03/20/19 14:54 Dose: 30 mg Glipizide (Glucotrol Tab*) 5 mg PO DAILY [facility] Lactated Ringer's (Lactated Ringers 1000 Ml Bag*) 1,000 mls @ 125 mls/hr IV PER RATE [facility] Last Admin: 03/20/19 11:40 Dose: 125 mls/hr Azithromycin (Zithromax 500 Mg/250 Ml) 500 mg in 250 mls @ 250 mls/hr IVPB Q24H [facility] Last Admin: 03/20/19 00:05 Dose: 250 mls/hr Insulin Human Lispro (Humalog*) 0 units SUBCUT ACHS [facility]; Protocol Last Admin: 03/20/19 12:37 Dose: 6 unit Mometasone Furoate (Asmanex 220 Mcg Mdi *) 2 puff INH BID [facility] Last Admin: 03/20/19 07:23 Dose: 2 puff Nicotine (Nicotine Patch 21 Mg/24 Hr*) 1 patch TRANSDERM DAILY [facility] Last Admin: 03/20/19 13:48 Dose: 1 patch Pharmacy Profile Note (Nicotine Patch Removal Note*) 1 note PATCH OFF 2100 [facility] Prednisone (Deltasone Tab*) 40 mg PO DAILY [facility] Stop: 03/22/19 09:01 Last Admin: 03/20/19 09:00 Dose: 40 mg Rivaroxaban (Xarelto(*)) 20 mg PO QPM [facility] Vital Signs - 8 hr 03/20/19 03/20/19 03/20/19 08:55 11:55 15:15 Temperature 97.6 F 100.1 F Pulse Rate 120 95 110 Respiratory 18 18 Rate Blood Pressure 112/61 105/59 122/56 (mmHg) O2 Sat by Pulse 94 91 Oximetry Oxygen Devices in Use Now: Nasal Cannula Exam: General - NAD, sitting up in bed, flushed looking, breathing fast Eyes - PERRLA, EOM intact HEENT- no abnormality Cardiovascular - RRR no m/r/g, no JVD, no carotid bruits Lungs - right basal creps, no use of acessory muscles, no crackles or wheezes. Skin - No rashes, skin warm and dry, no erythematous areas Abdomen - Normal bowel sounds, abdomen soft and nontender Extremities - No edema, cyanosis or clubbing Musculo Skeletal - 5/5 strength, normal range of motion, no swollen or erythematous joints. Neurological Alert and oriented x 3, CN 2-12 grossly intact. Psychiatry-stable mood Result Diagrams: 03/20/19 05:20 03/20/19 05:20 Additional Lab and Data: Lab Results 03/18/19 03/18/19 03/18/19 Range/Units 22:05 22:05 22:05 WBC 12.2 H (3.5-10.8) 10^3/uL RBC 5.11 H (3.70-4.87) 10^6 /uL Hgb 14.0 (12.0-16.0) g/dL Hct 42 (35-47) % MCV 82 (80-97) fL MCH 27 (27-31) pg MCHC 33 (31-36) g/dL RDW 14 (10-15) % Plt Count 164 (150-450) 10^3/uL MPV 8.7 (7.4-10.4) fL Neut % (Auto) 91.2 % Lymph % (Auto) 4.2 % Trinity % (Auto) 4.2 % Eos % (Auto) 0.0 % Baso % (Auto) 0.4 % Absolute Neuts (auto) 11.1 H (1.5-7.7) 10^3/ul Absolute Lymphs (auto) 0.5 L (1.0-4.8) 10^3/ul Absolute Monos (auto) 0.5 (0-0.8) 10^3/ul Absolute Eos (auto) 0.0 (0-0.6) 10^3/ul Absolute Basos (auto) 0.1 (0-0.2) 10^3/ul Absolute Nucleated RBC 0.0 10^3/ul Nucleated RBC % 0.0 INR (Anticoag Therapy) 1.26 H (0.82-1.09) Sodium 125 L (135-145) mmol/L Potassium 3.8 (3.5-5.0) mmol/L Chloride 95 L (101-111) mmol/L Carbon Dioxide 21 L (22-32) mmol/L Anion Gap 9 (2-11) mmol/L BUN 15 (6-24) mg/dL Creatinine 0.80 (0.51-0.95) mg/dL Est GFR ( Amer) 87.9 (>60) Est GFR (Non-Af Amer) 72.7 (>60) BUN/Creatinine Ratio 18.8 (8-20) Glucose 287 H (70-100) mg/dL Lactic Acid (0.5-2.0) mmol/L Calcium 9.1 (8.6-10.3) mg/dL Total Bilirubin 0.40 (0.2-1.0) mg/dL AST 26 (13-39) U/L ALT 21 (7-52) U/L Alkaline Phosphatase 63 (34-104) U/L Troponin I 0.10 H* (<0.04) ng/mL C-Reactive Protein 399.05 H (<8.01) mg/L Total Protein 7.1 (6.4-8.9) g/dL Albumin 3.6 (3.2-5.2) g/dL Globulin 3.5 (2-4) g/dL Albumin/Globulin Ratio 1.0 (1-3) 03/18/19 Range/Units 22:05 WBC (3.5-10.8) 10^3/uL RBC (3.70-4.87) 10^6 /uL Hgb (12.0-16.0) g/dL Hct (35-47) % MCV (80-97) fL MCH (27-31) pg MCHC (31-36) g/dL RDW (10-15) % Plt Count (150-450) 10^3/uL MPV (7.4-10.4) fL Neut % (Auto) % Lymph % (Auto) % Trinity % (Auto) % Eos % (Auto) % Baso % (Auto) % Absolute Neuts (auto) (1.5-7.7) 10^3/ul Absolute Lymphs (auto) (1.0-4.8) 10^3/ul Absolute Monos (auto) (0-0.8) 10^3/ul Absolute Eos (auto) (0-0.6) 10^3/ul Absolute Basos (auto) (0-0.2) 10^3/ul Absolute Nucleated RBC 10^3/ul Nucleated RBC % INR (Anticoag Therapy) (0.82-1.09) Sodium (135-145) mmol/L Potassium (3.5-5.0) mmol/L Chloride (101-111) mmol/L Carbon Dioxide (22-32) mmol/L Anion Gap (2-11) mmol/L BUN (6-24) mg/dL Creatinine (0.51-0.95) mg/dL Est GFR ( Amer) (>60) Est GFR (Non-Af Amer) (>60) BUN/Creatinine Ratio (8-20) Glucose (70-100) mg/dL Lactic Acid 1.9 (0.5-2.0) mmol/L Calcium (8.6-10.3) mg/dL Total Bilirubin (0.2-1.0) mg/dL AST (13-39) U/L ALT (7-52) U/L Alkaline Phosphatase (34-104) U/L Troponin I (<0.04) ng/mL C-Reactive Protein (<8.01) mg/L Total Protein (6.4-8.9) g/dL Albumin (3.2-5.2) g/dL Globulin (2-4) g/dL Albumin/Globulin Ratio (1-3) Assess/Plan/Problems-Billing Assessment: 63W with HTN, DM2, presenting with fevers and flank pain, found with hyponatremia, Leg Ag positive, and CT A/P concerning for PNA. CURB-65 score is 0 , but PSA is Class IV, so will cont treatment in hospital with IV antibiotics. Her stay complicated with new onset atrial fibrillation with RVR. - Patient Problems (1) Legionella pneumonia Current Visit: Yes Status: Acute Code(s): A48.1 - LEGIONNAIRES' DISEASE SNOMED Code(s): 738397327 Comment: - CT proved right basal pneumonia with legionella positive - fever still persisted but Tmax coming down - continue iv azithromycin (2) Atrial fibrillation Current Visit: Yes Status: Acute Code(s): I48.91 - UNSPECIFIED ATRIAL FIBRILLATION SNOMED Code(s): 99616985 Comment: - initially MAT, newly found AFib with RVR, BP borderline but still holding - TTE no valvular changes - continue diltizem 30mg q6h strictly, hold other antihypertensive - Discussed with patient today about anticoagulation for Afib (MARLO-VAC score 2) , started rivaroxiban 20mg qpm (3) COPD exacerbation Current Visit: Yes Status: Acute Code(s): J44.1 - CHRONIC OBSTRUCTIVE PULMONARY DISEASE W (ACUTE) EXACERBATION SNOMED Code(s): 408936600 Comment: - complicated with acute COPD exacerbation with ongoing pneumonia - pred 40mg for 3 days while continuing Duoneb and mometaone (4) Nicotine dependence Current Visit: Yes Status: Acute Code(s): F17.200 - NICOTINE DEPENDENCE, UNSPECIFIED, UNCOMPLICATED SNOMED Code(s): 22088853 Comment: start nicotine patch (5) DVT prophylaxis Current Visit: Yes Status: Acute Code(s): Z29.9 - ENCOUNTER FOR PROPHYLACTIC MEASURES, UNSPECIFIED SNOMED Code(s): 473839521 Comment: - off levonox in view of initiation of NOAC Status and Disposition: Inpatient Medicine. Attestation Documenting Resident: Jessenia Nixon Supervising Physician: Thea Davila Attestation: This service has been performed in part by a resident under the direction of a teaching physician.I, Thea Davila, performed the service, or was physically present during the critical, or rodgers portions of the service, furnished by the resident. I participated in the management of the patient.
[2019-03-20] MEDS ORDERED: Rivaroxaban TAB(*) 20 MG TAB PO SCH (18:00)
[2019-03-20] MEDS: Benzonatate CAP* 100 MG PO PRN (20:04)
[2019-03-20] MEDS: guaiFENesin ER TAB 600 MG PO SCH (20:05)
[2019-03-20] MEDS: Atorvastatin* 10 MG TAB PO SCH (20:13)
[2019-03-21] MEDS: Azithromycin 500 mg/250 ml NS 500 MG/250 ML BAG IVPB SCH ×2 (00:19→23:59)
[2019-03-21] MEDS: Diltiazem TAB* 30 MG PO SCH ×4 (02:13→20:13)
[2019-03-21] MEDS: Albuterol/Ipratropium NEB.SOL* Albuterol 2.5 MG/Ipratropium 0.5 MG 3 ML INH PRN (02:20)
[2019-03-21] MEDS: Acetaminophen TAB* 325 MG PO PRN ×4 (02:57→23:47)
[2019-03-21] MEDS ORDERED: Metoprolol Tartrate IV* 1 MG/ML 5 ML VIAL IV ONE (05:00)
[2019-03-21] MEDS: Lactated Ringers 1000 ML Bag* 1,000 ML IV SCH ×2 (06:18→14:32)
[2019-03-21] MEDS: Nicotine Patch Removal NOTE PATCH OFF SCH ×2 (06:19→20:15)
[2019-03-21 08:07] LABS: Hematocrit 34 % (35-47); Hemoglobin 11.5 g/dL (12.0-16.0); Mean Corpuscular HGB Conc 34 g/dL (31-36); Mean Corpuscular Hemoglobin 28 pg (27-31); Mean Corpuscular Volume 83 fL (80-97); Platelet Count 162 10^3/uL (150-450); Red Blood Count 4.13 10^6 /uL (3.70-4.87); Red Cell Distribution Width 14 % (10-15); White Blood Count 7.6 10^3/uL (3.5-10.8)
[2019-03-21] MEDS: Mometasone 220 MCG MDI INH SCH ×2 (08:08→19:16)
[2019-03-21] MEDS: Benzonatate CAP* 100 MG PO PRN (08:14)
[2019-03-21] MEDS: Nicotine PATCH 21 MG/24 HR* PATCH TRANSDERM SCH (08:14)
[2019-03-21] MEDS: predniSONE TAB* 20 MG PO SCH (08:14)
[2019-03-21] MEDS: guaiFENesin ER TAB 600 MG PO SCH ×2 (08:14→20:13)
[2019-03-21 08:19] LABS: BUN/Creatinine Ratio 23.5 (8-20); C Reactive Protein 231.38 mg/L (<8.01); Calcium 7.8 mg/dL (8.6-10.3); EGFR African American 147.9 (>60); EGFR Non-African American 122.2 (>60); Potassium 3.4 mmol/L (3.5-5.0)
--- NOTE | 2019-03-21 08:37 | PN ---
Sepsis Event Evaluation Date of Evaluation: 03/21/19 Time of Evaluation: 08:27 Current Stage of Sepsis: Sepsis Vital Signs - Last 12 Hours: Vital Signs - 12 hr Temp Pulse Resp BP Pulse Ox 03/21/19 08:14 137 32 91 03/21/19 05:24 109/54 03/21/19 05:20 109/52 03/21/19 05:11 118/50 03/21/19 04:52 118/48 03/21/19 03:00 102.1 F 03/21/19 02:49 101.4 F 123 18 164/78 93 03/21/19 02:11 98.5 F 154/76 92 03/21/19 00:18 98.7 F 115 24 137/73 91 03/20/19 22:45 99.5 F 03/20/19 21:32 102.7 F 152/70 03/20/19 20:38 24 Lactic Acid: 03/18/19 03/19/19 22:05 01:53 Lactic Acid 1.9 1.2 - Cardiopulmonary Exam Capillary Refill: Immediate Respiratory: Clear to Auscultation, - - tachypnea, in resp distress - Skin Exam Skin Exam: Flushed - Cameron Coma Scale Best Eye Response: 4 - Spontaneous Best Motor Response: 6 - Obeys Commands Best Verbal Response: 5 - Oriented Coma Scale Total: 15 Assess/Plan/Problems-Billing Assessment: 63W with HTN, DM2, presenting with fevers and flank pain, found with hyponatremia, Leg Ag positive, and CT A/P concerning for PNA. Her stay complicated with new onset atrial fibrillation with RVR. Called to see patient at 8:30am for increasing oxygen demand and tachycardia with HR 140s, requiring 8L InO2 with spO2 91%. Overnight, pt was febrile T 102 persistently. Pt complained of difficulty breathing worsening. PE: Vital signs: BP 109/54mmhg, HR 137, RR 32, spO2 91% under 8L H: normal S1S2, unable to hear clearly due to resp distress L: clear on auscultation but increasing RR A: soft non tender Extremity: pulse present Lab: CRP and TWC downtrending Assessment: 1. Pneumonia - concern of resp failure - ABG stat-> patient refused second attempt after failing first one - repeat blood culture - portable CXR STAT - add iv pip-tazo for broader coverage - ICU transfer 2. Afib with RVR - worsening with current infection - consider diltiazem drip in ICU - Patient Problems (1) Legionella pneumonia Current Visit: Yes Status: Acute Code(s): A48.1 - LEGIONNAIRES' DISEASE SNOMED Code(s): 343513240 Comment: - CT proved right basal pneumonia with legionella positive - fever still persisted but Tmax coming down - continue iv azithromycin (2) Atrial fibrillation Current Visit: Yes Status: Acute Code(s): I48.91 - UNSPECIFIED ATRIAL FIBRILLATION SNOMED Code(s): 06649133 Comment: - initially MAT, newly found AFib with RVR, BP borderline but still holding - TTE no valvular changes - continue diltizem 30mg q6h strictly, hold other antihypertensive - Discussed with patient today about anticoagulation for Afib (MARLO-VAC score 2) , started rivaroxiban 20mg qpm (3) COPD exacerbation Current Visit: Yes Status: Acute Code(s): J44.1 - CHRONIC OBSTRUCTIVE PULMONARY DISEASE W (ACUTE) EXACERBATION SNOMED Code(s): 458786013 Comment: - complicated with acute COPD exacerbation with ongoing pneumonia - pred 40mg for 3 days while continuing Duoneb and mometaone (4) Nicotine dependence Current Visit: Yes Status: Acute Code(s): F17.200 - NICOTINE DEPENDENCE, UNSPECIFIED, UNCOMPLICATED SNOMED Code(s): 77612331 Comment: start nicotine patch (5) DVT prophylaxis Current Visit: Yes Status: Acute Code(s): Z29.9 - ENCOUNTER FOR PROPHYLACTIC MEASURES, UNSPECIFIED SNOMED Code(s): 452041409 Comment: - off levonox in view of initiation of NOAC Status and Disposition: Transfer to ICU
--- NOTE | 2019-03-21 08:38 | PN ---
Hospitalist Progress Note Date of Service: 03/21/19 Subjective- Pt was much better in the ICU with the O2 supplementation. Breathing is much better. -Overnight event of fevers throughout night and BP's in 150-160s. Objective- GENERAL: Pt appears alert, oriented, and interactive EENT: normocephalic NECK: Supple. No jugular venous distention. LUNGS: The patient had rhonchi bilaterally HEART: no appreciable murmurs. ABDOMEN: Soft, nontender, nondistended. EXTREMITIES: No cyanosis, clubbing, or edema. hgb- 11.5 hct-34 abs lymphocytes- 0.6 K+= 3.4 BUN/creatinine-23.5 glucose-144 Ca-7.8 CRP-231.38 vitals- at 0941 was Temp. of 98.8 F Heart rate- 93 (1215) resp rate-27 o2 sat-96 02 flow rate-30 (1010) BP- 112/72 (1215) EKG-Atrial Fibrillation. No p-wave, Normal axis, irregular rhythm, no LVH, no RVH, QRS<120, , MA interval<200, QTc=normal X-ray- Right mid lower lung consolidation w/ right pleural effusion. Lung parenchyma shows alveolar opacification of right mid-lower lung Chest u/s- Small right pleural effusion Assessment/Plan Pt is a 63yr old female w/ past medical hx of diabetes, htn, dyslipidemia, osteoporosis, bornchitits, kidney stones, and multiple stents. Pt presented with fevers and flank pain with hyponatremia and is Legionella positive and CT shows PNA. 1. Sepsis secondary to right lower lobe pneumonia due to Legionella -Azithromycin 500mg in 250 mls IV 2. Hypoxic respiratory failure, likely secondary to pneumonia, questionable component of chronic obstructive pulmonary disease given the diffuse wheezing. We will treat as the patient has chronic obstructive pulmonary disease exacerbation given history of chronic smoking with 06-tcxq-ceza history. For now, we will start the patient on steroids. -Prednisone 40 mg PO daily - Albuterol/ipratropium - 1 neb INH RT Q4 hrs PRN 3. Has atrial fibrillation and [id number] risk of 2 - diltiazem 30mg PO Q6H -Rivaroxaban 20mg PO QPM RAFAL 4. Hepatic steatosis likely secondary to nonalcoholic liver disease. 5. Right adrenal nodule. We will consider followup with an adrenal CT on discharge. 6. History of diabetes. -Lispro sliding scale -Glipizide 5mg oral daily 7. History of hypertension. -diltiazem 30mg PO Q6H 8. History of dyslipidemia. atorvastatin-10mg po daily 9. Osteoporosis -alendronate 70 mg po weekly 10. DVT prophylaxis -rivoraxaban 20mg 11. Smoking cessation -pt agreed to nicotine patch 21mg(1 patch
[2019-03-21] MEDS ORDERED: Piperacillin/Tazobac ADVAN(*) 3.375 GM in NS 0.9% 100 ML* 100 ML IVPB ONE (08:43)
[2019-03-21] MEDS: Insulin LISPRO* 1 UNITS UNIT SUBCUT SCH ×4 (08:48→20:13)
[2019-03-21] MEDS ORDERED: Zosyn per Pharmacy* NOTE FOLLOW UP SCH (09:00)
[2019-03-21] MEDS ORDERED: glipiZIDE TAB* 5 MG PO SCH (09:00)
[2019-03-21] MEDS: ZOSYN 3.375 GM Q8H per EXTENDED INFUSION IVPB SCH ×4 (13:08→23:00)
[2019-03-21] MEDS: Potassium Chlor TAB* 20 MEQ TAB.ER PO SCH (14:10)
--- NOTE | 2019-03-21 15:42 | PN ---
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 Nixon and myself and decision was made to transfer her to ICU. CXR showed RLL infiltrate which was not present prior to today. We reordered blood cultures, broadened antibiotics to include pip/tazo, and consulted Dr. Serrano. High flow nasal cannula was started this afternoon. I came back to see her in the ICU this afternoon and she is much more comfortable on vapotherm. Objective Active Medications: Acetaminophen (Tylenol Tab*) 650 mg PO Q4H PRN PRN Reason: PAIN - MILD Last Admin: 03/21/19 09:02 Dose: 650 mg Albuterol/Ipratropium (Duoneb (Albuterol 2.5 Mg/Ipratropium 0.5 Mg)) 1 neb INH [id number] AWAKE PRN PRN Reason: SOB/WHEEZING Last Admin: 03/21/19 02:20 Dose: 1 neb Atorvastatin Calcium (Lipitor*) 10 mg PO BEDTIME [facility] Last Admin: 03/20/19 20:13 Dose: 10 mg Benzonatate (Tessalon Cap*) 100 mg PO BID PRN PRN Reason: COUGH Last Admin: 03/21/19 08:14 Dose: 100 mg Dextrose (Dextrose 50% Vial 50 Ml*) 25 ml IV PUSH .FOR FS < 60 - SS PRN PRN Reason: FS < 60 Diltiazem HCl (Cardizem Tab*) 30 mg PO Q6H [facility] Last Admin: 03/21/19 13:08 Dose: 30 mg Guaifenesin (Mucinex*) 600 mg PO BID [facility] Last Admin: 03/21/19 08:14 Dose: 600 mg Lactated Ringer's (Lactated Ringers 1000 Ml Bag*) 1,000 mls @ 125 mls/hr IV PER RATE [facility] Last Admin: 03/21/19 14:32 Dose: 125 mls/hr Azithromycin (Zithromax 500 Mg/250 Ml) 500 mg in 250 mls @ 250 mls/hr IVPB Q24H [facility] Last Admin: 03/21/19 00:19 Dose: 250 mls/hr Piperacillin Sod/Tazobactam (Sod 3.375 gm/ Sodium Chloride) 100 mls @ 25 mls/ hr IVPB Q8H [facility] Last Admin: 03/21/19 13:08 Dose: 25 mls/hr Insulin Human Lispro (Humalog*) 0 units SUBCUT ACHS [facility]; Protocol Last Admin: 03/21/19 11:43 Dose: 3 unit Metoprolol Tartrate (Lopressor Iv*) 5 mg IV Q6H PRN PRN Reason: TACHYCARDIA Mometasone Furoate (Asmanex 220 Mcg Mdi *) 2 puff INH BID [facility] Last Admin: 03/21/19 08:08 Dose: 2 puff Nicotine (Nicotine Patch 21 Mg/24 Hr*) 1 patch TRANSDERM DAILY [facility] Last Admin: 03/21/19 08:14 Dose: 1 patch Pharmacy Consult (Zosyn Per Pharmacy*) 1 note FOLLOW UP .ZOSYN PER PHARMACY [facility] Pharmacy Profile Note (Nicotine Patch Removal Note*) 1 note PATCH OFF 2100 [facility] Last Admin: 03/21/19 06:19 Dose: 1 note Potassium Chloride (Klor Con Er Tab*) 20 meq PO DAILY [facility] Last Admin: 03/21/19 14:10 Dose: 20 meq Prednisone (Deltasone Tab*) 40 mg PO DAILY [facility] Stop: 03/22/19 09:01 Last Admin: 03/21/19 08:14 Dose: 40 mg Rivaroxaban (Xarelto(*)) 20 mg PO QPM [facility] Last Admin: 03/20/19 17:08 Dose: 20 mg Vital Signs - 8 hr 03/21/19 03/21/19 03/21/19 07:57 08:14 08:52 Temperature 99.2 F 102.6 F Pulse Rate 124 137 Respiratory 32 32 Rate Blood Pressure 127/56 (mmHg) O2 Sat by Pulse 91 91 Oximetry 03/21/19 03/21/19 03/21/19 09:20 09:30 09:41 Temperature 98.8 F Pulse Rate 138 133 33 Respiratory 26 37 30 Rate Blood Pressure 135/84 144/76 144/73 (mmHg) O2 Sat by Pulse 90 93 92 Oximetry 03/21/19 03/21/19 03/21/19 09:45 10:00 10:01 Temperature Pulse Rate 115 113 114 Respiratory 31 26 34 Rate Blood Pressure 132/76 133/71 (mmHg) O2 Sat by Pulse 92 90 90 Oximetry 03/21/19 03/21/19 03/21/19 10:03 10:15 10:30 Temperature Pulse Rate 102 98 Respiratory 32 29 27 Rate Blood Pressure 120/66 121/69 (mmHg) O2 Sat by Pulse 95 96 Oximetry 03/21/19 03/21/19 03/21/19 10:45 11:00 11:01 Temperature Pulse Rate 104 131 126 Respiratory 30 23 32 Rate Blood Pressure 119/69 118/65 (mmHg) O2 Sat by Pulse 97 96 95 Oximetry 03/21/19 03/21/19 03/21/19 11:15 11:30 11:45 Temperature Pulse Rate 123 119 117 Respiratory 31 27 28 Rate Blood Pressure 111/62 108/62 121/65 (mmHg) O2 Sat by Pulse 96 95 95 Oximetry 03/21/19 03/21/19 03/21/19 12:00 12:15 12:30 Temperature 98.6 F Pulse Rate 111 93 59 Respiratory 29 27 25 Rate Blood Pressure 112/78 112/72 111/66 (mmHg) O2 Sat by Pulse 95 96 96 Oximetry 03/21/19 03/21/19 03/21/19 12:45 13:00 13:15 Temperature Pulse Rate 85 116 122 Respiratory 29 29 29 Rate Blood Pressure 109/64 116/66 124/68 (mmHg) O2 Sat by Pulse 96 96 96 Oximetry 03/21/19 03/21/19 03/21/19 13:30 13:46 14:00 Temperature Pulse Rate 119 122 111 Respiratory 25 33 31 Rate Blood Pressure 126/75 101/51 91/44 (mmHg) O2 Sat by Pulse 96 95 95 Oximetry 03/21/19 03/21/19 03/21/19 14:30 14:45 15:00 Temperature Pulse Rate 100 103 107 Respiratory 26 30 30 Rate Blood Pressure 122/64 122/64 119/68 (mmHg) O2 Sat by Pulse 95 95 95 Oximetry 03/21/19 15:15 Temperature Pulse Rate 108 Respiratory 28 Rate Blood Pressure 126/66 (mmHg) O2 Sat by Pulse 88 Oximetry Oxygen Devices in Use Now: High Flow Nasal Cannula Appearance: alert, comfortable, well appearing and visiting with family Eyes: No Scleral Icterus Ears/Nose/Mouth/Throat: NL Teeth, Lips, Gums Neck: NL Appearance and Movements; NL JVP Respiratory: - - diffusely rhonchorous, comfortable breathing Cardiovascular: - - tachycardic, irregular rhythm Abdominal: NL Sounds; No Tenderness; No Distention Lymphatic: No Cervical Adenopathy Extremities: No Edema Skin: No Rash or Ulcers Result Diagrams: 03/21/19 06:55 03/21/19 06:55 Additional Lab and Data: Lab Results 03/18/19 03/18/19 03/18/19 Range/Units 22:05 22:05 22:05 WBC 12.2 H (3.5-10.8) 10^3/uL RBC 5.11 H (3.70-4.87) 10^6 /uL Hgb 14.0 (12.0-16.0) g/dL Hct 42 (35-47) % MCV 82 (80-97) fL MCH 27 (27-31) pg MCHC 33 (31-36) g/dL RDW 14 (10-15) % Plt Count 164 (150-450) 10^3/uL MPV 8.7 (7.4-10.4) fL Neut % (Auto) 91.2 % Lymph % (Auto) 4.2 % Sharkey % (Auto) 4.2 % Eos % (Auto) 0.0 % Baso % (Auto) 0.4 % Absolute Neuts (auto) 11.1 H (1.5-7.7) 10^3/ul Absolute Lymphs (auto) 0.5 L (1.0-4.8) 10^3/ul Absolute Monos (auto) 0.5 (0-0.8) 10^3/ul Absolute Eos (auto) 0.0 (0-0.6) 10^3/ul Absolute Basos (auto) 0.1 (0-0.2) 10^3/ul Absolute Nucleated RBC 0.0 10^3/ul Nucleated RBC % 0.0 INR (Anticoag Therapy) 1.26 H (0.82-1.09) Sodium 125 L (135-145) mmol/L Potassium 3.8 (3.5-5.0) mmol/L Chloride 95 L (101-111) mmol/L Carbon Dioxide 21 L (22-32) mmol/L Anion Gap 9 (2-11) mmol/L BUN 15 (6-24) mg/dL Creatinine 0.80 (0.51-0.95) mg/dL Est GFR ( Amer) 87.9 (>60) Est GFR (Non-Af Amer) 72.7 (>60) BUN/Creatinine Ratio 18.8 (8-20) Glucose 287 H (70-100) mg/dL Lactic Acid (0.5-2.0) mmol/L Calcium 9.1 (8.6-10.3) mg/dL Total Bilirubin 0.40 (0.2-1.0) mg/dL AST 26 (13-39) U/L ALT 21 (7-52) U/L Alkaline Phosphatase 63 (34-104) U/L Troponin I 0.10 H* (<0.04) ng/mL C-Reactive Protein 399.05 H (<8.01) mg/L Total Protein 7.1 (6.4-8.9) g/dL Albumin 3.6 (3.2-5.2) g/dL Globulin 3.5 (2-4) g/dL Albumin/Globulin Ratio 1.0 (1-3) / Range/Units 22:05 WBC (3.5-10.8) 10^3/uL RBC (3.70-4.87) 10^6 /uL Hgb (12.0-16.0) g/dL Hct (35-47) % MCV (80-97) fL MCH (27-31) pg MCHC (31-36) g/dL RDW (10-15) % Plt Count (150-450) 10^3/uL MPV (7.4-10.4) fL Neut % (Auto) % Lymph % (Auto) % Sharkey % (Auto) % Eos % (Auto) % Baso % (Auto) % Absolute Neuts (auto) (1.5-7.7) 10^3/ul Absolute Lymphs (auto) (1.0-4.8) 10^3/ul Absolute Monos (auto) (0-0.8) 10^3/ul Absolute Eos (auto) (0-0.6) 10^3/ul Absolute Basos (auto) (0-0.2) 10^3/ul Absolute Nucleated RBC 10^3/ul Nucleated RBC % INR (Anticoag Therapy) (0.82-1.09) Sodium (135-145) mmol/L Potassium (3.5-5.0) mmol/L Chloride (101-111) mmol/L Carbon Dioxide (22-32) mmol/L Anion Gap (2-11) mmol/L BUN (6-24) mg/dL Creatinine (0.51-0.95) mg/dL Est GFR ( Amer) (>60) Est GFR (Non-Af Amer) (>60) BUN/Creatinine Ratio (8-20) Glucose (70-100) mg/dL Lactic Acid 1.9 (0.5-2.0) mmol/L Calcium (8.6-10.3) mg/dL Total Bilirubin (0.2-1.0) mg/dL AST (13-39) U/L ALT (7-52) U/L Alkaline Phosphatase (34-104) U/L Troponin I (<0.04) ng/mL C-Reactive Protein (<8.01) mg/L Total Protein (6.4-8.9) g/dL Albumin (3.2-5.2) g/dL Globulin (2-4) g/dL Albumin/Globulin Ratio (1-3) Microbiology and Other Data: Microbiology 03/21/19 10:08 Nasal Screen MRSA (PCR) - Final Nasal Mrsa Detected 03/18/19 22:05 Aerobic Blood Culture - Preliminary Blood Venous No Growth Day 2 Anaerobic Blood Culture - Preliminary No Growth Day 2 03/18/19 22:05 Aerobic Blood Culture - Preliminary Blood Venous No Growth Day 2 Anaerobic Blood Culture - Preliminary No Growth Day 2 03/18/19 23:18 Urine Culture - Final Urine No Growth (<1,000 CFU/mL) 03/19/19 12:15 Legionella Urinary Antigen - Final Urine Positive Legionella Antigen Streptococcus pneumoniae Ag Screen - Final Negative S. pneumo Antigen Assess/Plan/Problems-Billing 63 year old woman with history of nephrolithiasis, HTN, and tobacco use admitted on 03/19 with back pain and found to have RLL pneumonia on the CT abd/ pelvis and urine legionella antigen positive, was being treated with azithromycin, then with a decompensation this morning with worsening sepsis and hypoxic respiratory failure, transferred to the ICU 03/21 - Patient Problems (1) Acute hypoxemic respiratory failure Current Visit: Yes Status: Acute Code(s): J96.01 - ACUTE RESPIRATORY FAILURE WITH HYPOXIA SNOMED Code(s): 718672817 Comment: ABG unable to be obtained stable now on high flow nasal cannula at 30L, 70% fiO2 likely related to pneumonia + pleural effusion Dr. Serrano got US of effusion, too small to be drained but concern for loculation will follow, may need intervention if suspicion for empyema (2) Legionella pneumonia Current Visit: Yes Status: Acute Code(s): A48.1 - LEGIONNAIRES' DISEASE SNOMED Code(s): 704016597 Comment: with sepsis abx broadened this morning to cover a polymicrobial pneumonia sputum culture was unable to be obtained (3) Atrial fibrillation Current Visit: Yes Status: Acute Code(s): I48.91 - UNSPECIFIED ATRIAL FIBRILLATION SNOMED Code(s): 31332328 Comment: new AFib with RVR, BP okay TTE no valvular changes continue diltizem 30mg q6h and hold other antihypertensive to allow room for rate control titration discussed risks and benefits of anticoagulation with her and opted for anticoagulation for a [id number] of 2 will switch xarelto to lovenox now in case she does need a chest tube or a thoracentesis (4) COPD exacerbation Current Visit: Yes Status: Acute Code(s): J44.1 - CHRONIC OBSTRUCTIVE PULMONARY DISEASE W (ACUTE) EXACERBATION SNOMED Code(s): 152215202 Comment: complicated with acute COPD exacerbation with ongoing pneumonia continue prednisone burst (5) Nicotine dependence Current Visit: Yes Status: Acute Code(s): F17.200 - NICOTINE DEPENDENCE, UNSPECIFIED, UNCOMPLICATED SNOMED Code(s): 58448692 Comment: start nicotine patch (6) DVT prophylaxis Current Visit: Yes Status: Acute Code(s): Z29.9 - ENCOUNTER FOR PROPHYLACTIC MEASURES, UNSPECIFIED SNOMED Code(s): 843321564 Comment: therapeutic lovenox Status and Disposition: requires ICU level of care for vapotherm
[2019-03-21] MEDS: Enoxaparin(*) 60 MG/0.6 ML SYR SUBCUT SCH (17:17)
[2019-03-21] MEDS: Metoprolol Tartrate IV* 1 MG/ML 5 ML VIAL IV PRN ×2 (17:27→22:26)
--- NOTE | 2019-03-21 19:03 | CONS ---
CRITICAL CARE CONSULT: DATE OF CONSULT: 03/21/19 REASON FOR CONSULT: Pneumonia with respiratory failure. HISTORY OF PRESENT ILLNESS: This patient is a 63-year-old white female with a prior medical history of diabetes, hypertension, osteoporosis, renal calculi, and smoking (1 ppd) who was admitted 2 days ago with pneumonia (right lung base ) and atrial fibrillation (new). Workup of the pneumonia revealed a positive legionella urinary antigen, and the patient was started on azithromycin 500 mg IV daily. The AFib was treated with diltiazem and an oral anticoagulant. The patient developed respiratory distress and progressive hypoxemia earlier today and was brought to the ICU. Chest x-ray this AM showed a dense consolidation at the right base with a probable pleural effusion -ultrasound of the right hemithorax revealed a loculated pleural effusion. The patient was placed on high-flow humidified nasal O2,with arterial O2 sats in the low 90s, and she appeared very comfortable after initiating the high-flow nasal O2. MEDICATIONS: On admission to the ICU included: 1. Diltiazem: 30 mg p.o. q.6 hours. 2. Azithromycin. 3. Piperacillin/tazobactam as empiric therapy. 4. Rivaroxaban 20 mg daily. 5. Prednisone 40 mg daily (x 3 days). 6. Nicotine patch The patient has a longstanding history of smoking and a nicotine patch was applied to remedy this. PHYSICAL EXAM: The patient was alert, oriented, and appeared comfortable. Vital Signs: Temp 98.6, heart rate 114 and irregular, respirations 30 and not labored, O2 sat 95%, blood pressure 112/78. HEENT: There was no facial asymmetry, and oropharynx was clear. Neck was supple. There was no adenopathy. Chest revealed diminished breath sounds and crackles at the right lung base posteriorly. Cardiac exam revealed no murmurs or rubs. Abdomen was soft, nontender, and nondistended. Extremities were warm, not cyanotic, and not edematous. DIAGNOSTIC STUDIES/LAB DATA: Pertinent laboratory data includes an admission white count of 12.2, which has decreased to normal. On admission, sodium of 125 which has increased to normal. C-reactive protein on admission was 399. Magnesium of 1.8. BUN and creatinine normal. INR 1.26. EKG shows atrial fibrillation. Chest x-ray as mentioned. IMPRESSION: 1. Legionella pneumonia with parapneumonic effusion. 2. New-onset atrial fibrillation - ? legionella myocarditis. MANAGEMENT PLAN: Continue with azithromycin for Legionnaires. The patient does not need ventilatory support at this time, and will wean high-flow nasal O2 when feasible. If the patient continues to be febrile, then a chest tube may be necessary because of the loculated nature of the parapneumonic effusion. CRITICAL CARE TIME: 60 minutes. [id number]/CPS #: [id number] MTDNader
[2019-03-21] MEDS: Atorvastatin* 10 MG TAB PO SCH (20:13)
[2019-03-22] MEDS: Diltiazem TAB* 30 MG PO SCH ×4 (02:16→21:11)
[2019-03-22] MEDS: Metoprolol Tartrate IV* 1 MG/ML 5 ML VIAL IV PRN ×2 (04:45→21:17)
[2019-03-22] MEDS: ZOSYN 3.375 GM Q8H per EXTENDED INFUSION IVPB SCH ×4 (05:45→14:20)
[2019-03-22] MEDS: Enoxaparin(*) 60 MG/0.6 ML SYR SUBCUT SCH ×2 (05:45→18:52)
[2019-03-22 05:50] LABS: Hematocrit 34 % (35-47); Hemoglobin 11.4 g/dL (12.0-16.0); Mean Corpuscular HGB Conc 34 g/dL (31-36); Mean Corpuscular Hemoglobin 28 pg (27-31); Mean Corpuscular Volume 81 fL (80-97); Mean Platelet Volume 8.2 fL (7.4-10.4); Platelet Count 187 10^3/uL (150-450); Red Blood Count 4.17 10^6 /uL (3.70-4.87); Red Cell Distribution Width 14 % (10-15); White Blood Count 9.9 10^3/uL (3.5-10.8)
[2019-03-22 05:53] LABS: INR 1.13 (0.82-1.09)
[2019-03-22 06:05] LABS: Albumin 2.3 g/dL (3.2-5.2); BUN/Creatinine Ratio 30.8 (8-20); Calcium 7.6 mg/dL (8.6-10.3); EGFR African American 201.5 (>60); EGFR Non-African American 166.5 (>60); Globulin 2.3 g/dL (2-4); Indirect Bilirubin 0.2 mg/dL (0.3-1.0); Magnesium 1.7 mg/dL (1.9-2.7); Total Bilirubin 0.3 mg/dL (0.2-1.0); Total Protein 4.6 g/dL (6.4-8.9)
[2019-03-22 06:25] LABS: ABS Lymphocytes 0.3 10^3/ul (1.0-4.8); ABS Monocytes 0.2 10^3/ul (0-0.8); ABS Neutrophils 9.4 10^3/ul (1.5-7.7); Eosinophil % 0.1 %; Lymphocyte % 3.3 %
[2019-03-22] MEDS: Insulin LISPRO* 1 UNITS UNIT SUBCUT SCH ×4 (07:52→23:03)
[2019-03-22] MEDS: Nicotine PATCH 21 MG/24 HR* PATCH TRANSDERM SCH (07:53)
[2019-03-22] MEDS: predniSONE TAB* 20 MG PO SCH (07:53)
[2019-03-22] MEDS: Potassium Chlor TAB* 20 MEQ TAB.ER PO SCH (07:53)
[2019-03-22] MEDS: guaiFENesin ER TAB 600 MG PO SCH ×2 (07:53→21:11)
--- NOTE | 2019-03-22 08:52 | PN ---
Hospitalist Progress Note Date of Service: 03/22/19 Subjective- Pt still has complaint of difficulty to breathe. And said it was difficult to speak bc she was so thirsty -Overnight event of HR in 120-150s. PRN metoprolol admisnistered. Fevers overnight to 100.5F PRN tylenol admisnstered Objective- vitals- Temp-97 Heart rate- 102 (1300) resp rate-24 o2 sat-98 w/ FiO2 75% 02 flow rate-40 BP- 115/63 GENERAL: Pt appears very tired EENT: oropharynx is dry NECK: Supple. No jugular venous distention. LUNGS: The patient had rhonchi bilaterally HEART: no appreciable murmurs. ABDOMEN: Soft, nontender, nondistended. EXTREMITIES: No cyanosis, clubbing, or edema. hgb- 11.4 hct-34 abs neutrophils-9.4(up) abs lymphocytes- 0.3 INR-1.13 K+= 3.0 creatinine-.39 BUN/creatinine-30.8 glucose-118 Ca-7.6 Mg-1.7 indirect bili-.2 AST-43 total protein-4.6 albumin-2.3 Chest X-alb-vozbns right pleural effusion with right mid lower lung consolidation Assessment/Plan Pt is a 63yr old female w/ past medical hx of diabetes, htn, dyslipidemia, osteoporosis, bornchitits, kidney stones, and multiple stents. Pt presented with fevers and flank pain with hyponatremia and is Legionella positive and CT shows PNA. 1. Sepsis secondary to right lower lobe pneumonia due to Legionella -Azithromycin 500mg in 250 mls IV and Piperacillin/Tazobactam 3.375mg 100mls @25 mls/hrs Q8H 2. Hypoxic respiratory failure, likely secondary to pneumonia, questionable component of chronic obstructive pulmonary disease given the diffuse wheezing. We will treat as the patient has chronic obstructive pulmonary disease exacerbation given history of chronic smoking with [id number] history. For now, we will start the patient on steroids. -Prednisone 40 mg PO daily for COPD exacerbation - Albuterol/ipratropium - 1 neb INH RT Q4 hrs PRN 3. Has atrial fibrillation and [id number] risk of 2 - diltiazem 30mg PO Q6H -Rivaroxaban 20mg PO QPM RAFAL 4. Hepatic steatosis likely secondary to nonalcoholic liver disease. 5. Right adrenal nodule. We will consider followup with an adrenal CT on discharge. 6. History of diabetes. -Lispro sliding scale -Glipizide 5mg oral daily 7. History of hypertension. -diltiazem 30mg PO Q6H 8. History of dyslipidemia. atorvastatin-10mg po daily 9. Osteoporosis -alendronate 70 mg po weekly 10. DVT prophylaxis -rivoraxaban 20mg 11. Smoking cessation -pt agreed to nicotine patch 21mg(1 patch 12.)Tachycardia -Metoprolol 5mg IV Q6H PRN(1895)
[2019-03-22] MEDS: Mometasone 220 MCG MDI INH SCH ×2 (09:23→19:49)
[2019-03-22] MEDS: Acetaminophen TAB* 325 MG PO PRN (09:29)
--- NOTE | 2019-03-22 13:42 | CONS ---
CONSULTATION REPORT: DATE OF CONSULT: 03/22/19 PRIMARY CARE PROVIDER: Dr. Elissa Winkler PROVIDER REQUESTING CONSULTATION: Dr. Adarsh Serrano CONSULTING SERVICE: Infectious Disease. PROVIDER: Magdaleno Martinez NP ATTENDING PROVIDER: Dr. Reagan Miller.* (DICTATED BY MAGDALENO MARTINEZ NP) REASON FOR CONSULTATION: Legionella pneumonia. HISTORY OF PRESENT ILLNESS: Ms. Gary is a 63-year-old female with past medical history significant for diabetes mellitus, type 2; hypertension; hyperlipidemia; osteoporosis; renal calculi; and suspected COPD, who presented to the emergency room with complaints of fever and back pain. She states that earlier last week, she was feeling fatigued and run down, but on , 03/16, she started feeling really sick including fevers and shortness of breath with exertion. Her 17-year-old grandson that lives with her had recently been having signs of an upper respiratory tract infection. Her partner has been feeling well with no similar symptoms. Denies any joint pain, muscle pain, nausea, vomiting diarrhea, abdominal pain, urinary symptoms, rash, or recent travel. Denies any chest pain. She developed intermittent fevers and felt dehydrated, so she presented to the emergency room for evaluation of her symptoms. While in the emergency room, she had a chest x-ray showing no acute cardiopulmonary process. She also underwent an abdomen and pelvis CT showing a right lower lobe pneumonia, moderate hepatic steatosis, and intermediate right adrenal nodule with recommended followup. She was noted to be febrile with a temperature of 102.1 upon arrival to the emergency room. She was tachycardic with her heart rate in the 130s, O2 sat 95% on room air. She was also noted to have mild leukocytosis with a white blood cell count of 12.2, hyponatremic with a sodium of 125, elevated troponin, and CRP of 399.05. Urinalysis with 2+ blood , negative nitrites, negative leukocytes, absent bacteria. She was referred to the hospitalist service for admission. She was admitted to the hospital for a right lower lobe pneumonia. She was placed on ceftriaxone and azithromycin to cover community-acquired pneumonia. She was also found to have hypoxic respiratory failure, felt to be secondary to her pneumonia and a questionable component of COPD. The patient was started steroids and DuoNebs. The patient has continued to require Vapotherm to maintain her oxygenation. She continues to be tachycardic and tachypneic. Additionally, she continues to have intermittent fevers, low-grade fevers overnight and this morning, last fever yesterday afternoon at 101.2. She was 102.6 earlier yesterday morning. Her leukocytosis has resolved. She had a followup chest x-ray showing a right mid lower lung consolidation with a right pleural effusion. She had a transthoracic echocardiogram showing a normal ejection fraction and no valvular abnormalities noted. She is currently requiring Vapotherm at 40 L and 75% FiO2. She has dyspnea with talking. She continues to have intermittent fevers. She had urine antigen positive for Legionella. Blood cultures with no growth to date. A urine culture was negative. Sputum culture obtained yesterday showing a blood tinged specimen with 2+ neutrophils, 4+ epithelial cells, and mixed morphotypes resembling normal dean, final culture is pending at this time. IMPRESSION: 1. Legionella pneumonia. The patient with urine antigen positive for Legionella, negative for S. pneumoniae. Blood cultures with no growth on day 3. She continues to be intermittently febrile. She had sputum culture with 2+ neutrophils, 4+ epithelial cells, final culture is still pending. She has been on the azithromycin for 4 days and Zosyn for 1 day. Initial chest x-ray in the emergency room with no acute findings, but abdomen CT found basilar right consolidation. The patient had ultrasound of her chest yesterday showing a small right pleural effusion. This morning, chest x-ray showing a stable right pleural effusion of the right mid and lower lobe consolidation. Her initial leukocytosis has resolved. CRP on admission is 399.5, and it has not been repeated. The stenographer secretary has concern for a loculated pleural effusion. 2. Tobacco abuse. 3. Diabetes mellitus, type 2. PLAN/RECOMMENDATIONS: Recommend continuing Azithromycin 500 mg IV daily to treat Legionella pneumonia. Will broaden the antibiotic coverage in the setting of staph aureus in the sputum. Will discontinue Zosyn and start Vancomycin trough goal 15-20 and Cefepime 2gm IV every 8 hours. Will discuss chest imaging with Radiology and see if they feel the pleural effusion is loculated. If it is in fact a small pleural effusion without loculation will continue current course. If the pleural effusion is loculated will see if Radiology is able to aspirate this for a sample. We will continue to follow with the patient and further recommendations will be based on the patients clinical course and microbiology results. PAST MEDICAL HISTORY: 1. Diabetes mellitus, type 2. 2. Hypertension. 3. Hyperlipidemia. 4. Osteoporosis. 5. History of renal calculi. 6. Possible history of COPD. PAST SURGICAL HISTORY: 1. Status post section. 2. Status post multiple renal stents. MEDICATIONS: Home medications: 1. Glipizide 5 mg by mouth daily. 2. Losartan 25 mg by mouth twice daily. 3. Flovent HFA inhaler 220 mg 2 puffs inhalation twice daily. 4. Atorvastatin 10 mg by mouth daily. 5. Alendronate 70 mg by mouth weekly. 6. Albuterol HFA inhaler 2 puffs inhalation every 6 hours as needed for shortness of breath or wheeze. Hospital medications: 1. Acetaminophen 650 mg by mouth every 4 hours as needed for fever or pain. 2. DuoNeb 1 neb inhalation every 4 hours while awake as needed for shortness of breath or wheeze. 3. Atorvastatin 10 mg by mouth daily at bedtime. 4. Azithromycin 500 mg IV daily. 5. Tessalon 100 mg by mouth twice daily as needed for cough. 6. Dextrose 25 mL IV push for glucose less than 60 as needed. 7. Diltiazem 30 mg by mouth every 6 hours. 8. Lovenox 60 mg subcutaneous twice daily. 9. Mucinex 600 mg by mouth twice daily. 10. Humalog insulin subcutaneous with meals and at bedtime. 11. Lactated Ringers 125 mL intravenously an hour. 12. Metoprolol tartrate 5 mg IV every 6 hours as needed for heart rates greater than 120. 13. Asmanex 220 mcg MDI 2 puffs inhalation twice daily. 14. Nicotine patch 21 mg transdermal daily. 15. Zosyn 3.375 g IV every 8 hours. 16. Potassium chloride 20 mEq by mouth daily. ALLERGIES: No known drug allergies. FAMILY HISTORY: Denies family history of recurrent or resistant infections. Denies family history of coronary artery disease or diabetes. Parents with a history of lung cancer. Mother passed at age 78 and father passed at age 68. SOCIAL HISTORY: Denies alcohol or recreational drug use. She is a current smoker, smoking 1 pack a day for many years. REVIEW OF SYSTEMS: I performed a 10-point review of systems, all the pertinent positives and negatives are mentioned in the history of present illness. The remaining review of systems are negative. PHYSICAL EXAMINATION: Vital Signs: Temperature 100.9, heart rate 155, respiratory rate 30, O2 sat 94% on 30 L of oxygen and 75% FiO2, blood pressure 166/89. General Appearance: The patient is alert, ill appearing, appears to be in no acute distress, sitting up in bed. Head: Normocephalic, atraumatic. Extraocular movements are intact. Moist mucous membranes. No subconjunctival hemorrhage. Neurological: Alert and oriented. Cranial nerves II through XII are grossly intact. Cardiovascular: Heart rate is regular, but tachycardic. No murmurs, rubs, or gallops heard. Respiratory: No accessory muscle use. Lungs with scattered rhonchi, diminished in the bases. Abdomen: Bowel sounds present. Abdomen soft, nontender, nondistended. Extremities: No lower extremity edema. DP/PT pulses are 2+. Musculoskeletal: No clubbing or cyanosis noted. Exhibits good strength in all extremities. Psychological: Calm and cooperative. Skin: No rashes or abnormalities seen. DIAGNOSTIC STUDIES/LABORATORY DATA: BMP as from 03/19/19, sodium 135, potassium 3.0, chloride 104, CO2 of 23, BUN 12, creatinine 0.39, glucose 118. White blood cell count 9.9, hemoglobin 11.4, hematocrit 34, platelet count 187. Please see impression and recommendations outlined above, recommendations have been discussed with Dr. Adarsh Serrano. Thank you for asking us to see Ms. Gary in consultation. This case has been reviewed with my attending, Dr. Reagan Miller, who agrees with the plan of care. Reviewed by ROSY HAGEN 03/25/19 1056 [id number]/[facility] #: [id number] [facility] HOSPITALNader
[2019-03-22] MEDS: Lactated Ringers 1000 ML Bag* 1,000 ML IV SCH (14:25)
--- NOTE | 2019-03-22 16:46 | PN ---
Date of Service: 03/22/19 Critical Care Services: Clinically improved today. Breathing easier. Less tachycardia. CXR shows no progression of RLL infltrate and R-sided effusion. Vital Signs: Temp Pulse Resp BP SpO2 FiO2 97 F 109 21 117/79 97 70 Physical Exam: Gen:Alert, oriented, comfortable HEENT:No adenopathy Lungs:Crackles right base. rhonchi on left side Cardiac: Irreg rhythm Abdomen:Not distended Extremities:No cyanosis or edema Fluid Balance (Past 24 Hours): 03/20/19 03/21/19 03/22/19 06:59 06:59 06:59 Intake Total 3679 2596 5472 Output Total 0 1400 Balance 3679 2596 4072 Weight 140 lb 141 lb 9 oz Intake: IV Fluids 2349 1966 3763 LR 234 1966 3681 NS (0.9%) 82 IVPB 250 599 ABX - AZITHROMYCIN 276 ABX - ZOSYN 323 LR 250 Oral 0577 333 7259 Output: Urine 0 1400 Other: Estimated Void Medium Large Date of Last Bowel 03/21/19 Movement # Bowel Movements 0 1 Estimated Stool Amount Small # Voids 1 1 Labs: Laboratory Results - last 24 hr 03/21/19 03/21/19 03/21/19 16:55 20:05 23:40 WBC RBC Hgb Hct MCV MCH MCHC RDW Plt Count MPV Neut % (Auto) Lymph % (Auto) Ector % (Auto) Eos % (Auto) Baso % (Auto) Absolute Neuts (auto) Absolute Lymphs (auto) Absolute Monos (auto) Absolute Eos (auto) Absolute Basos (auto) Absolute Nucleated RBC Nucleated RBC % INR (Anticoag Therapy) Patient Temperature Not Reportable ABG pH 7.47 H ABG pH (Temp Correct) Not Reportable ABG pCO2 33 L ABG pCO2 (Temp Corrct Not Reportable ABG pO2 73 L ABG pO2 (Temp Correct Not Reportable ABG HCO3 25.6 ABG O2 Saturation 97.9 ABG Base Excess 0.9 Respiration Rate Not Reportable O2 Delivery Device vapotherm Ventilator Type Not Reportable Vent Mode Not Reportable FiO2 80 Inspiratory Time Not Reportable PEEP Not Reportable Pressure Support Not Reportable Pressure Control Not Reportable EPAP Not Reportable IPAP Not Reportable BiPAP Not Reportable Sodium Potassium Chloride Carbon Dioxide Anion Gap BUN Creatinine Est GFR ( Amer) Est GFR (Non-Af Amer) BUN/Creatinine Ratio Glucose POC Glucose (mg/dL) 210 H 142 H Lactic Acid Calcium Magnesium Total Bilirubin Direct Bilirubin Indirect Bilirubin AST ALT Alkaline Phosphatase Total Protein Albumin Globulin Albumin/Globulin Ratio 03/22/19 03/22/19 03/22/19 05:35 05:35 05:35 WBC 9.9 RBC 4.17 Hgb 11.4 L Hct 34 L MCV 81 MCH 28 MCHC 34 RDW 14 Plt Count 187 MPV 8.2 Neut % (Auto) 94.1 Lymph % (Auto) 3.3 Ector % (Auto) 2.4 Eos % (Auto) 0.1 Baso % (Auto) 0.1 Absolute Neuts (auto) 9.4 H Absolute Lymphs (auto) 0.3 L Absolute Monos (auto) 0.2 Absolute Eos (auto) 0.0 Absolute Basos (auto) 0.0 Absolute Nucleated RBC 0.0 Nucleated RBC % 0.0 INR (Anticoag Therapy) 1.13 H Patient Temperature ABG pH ABG pH (Temp Correct) ABG pCO2 ABG pCO2 (Temp Corrct ABG pO2 ABG pO2 (Temp Correct ABG HCO3 ABG O2 Saturation ABG Base Excess Respiration Rate O2 Delivery Device Ventilator Type Vent Mode FiO2 Inspiratory Time PEEP Pressure Support Pressure Control EPAP IPAP BiPAP Sodium 135 Potassium 3.0 L Chloride 104 Carbon Dioxide 23 Anion Gap 8 BUN 12 Creatinine 0.39 L Est GFR ( Amer) 201.5 Est GFR (Non-Af Amer) 166.5 BUN/Creatinine Ratio 30.8 H Glucose 118 H POC Glucose (mg/dL) Lactic Acid Calcium 7.6 L Magnesium 1.7 L Total Bilirubin 0.30 Direct Bilirubin 0.10 Indirect Bilirubin 0.2 L AST 43 H ALT 27 Alkaline Phosphatase 47 Total Protein 4.6 L Albumin 2.3 L Globulin 2.3 Albumin/Globulin Ratio 1.0 03/22/19 03/22/19 03/22/19 07:38 08:44 11:14 WBC RBC Hgb Hct MCV MCH MCHC RDW Plt Count MPV Neut % (Auto) Lymph % (Auto) Ector % (Auto) Eos % (Auto) Baso % (Auto) Absolute Neuts (auto) Absolute Lymphs (auto) Absolute Monos (auto) Absolute Eos (auto) Absolute Basos (auto) Absolute Nucleated RBC Nucleated RBC % INR (Anticoag Therapy) Patient Temperature ABG pH ABG pH (Temp Correct) ABG pCO2 ABG pCO2 (Temp Corrct ABG pO2 ABG pO2 (Temp Correct ABG HCO3 ABG O2 Saturation ABG Base Excess Respiration Rate O2 Delivery Device Ventilator Type Vent Mode FiO2 Inspiratory Time PEEP Pressure Support Pressure Control EPAP IPAP BiPAP Sodium Potassium Chloride Carbon Dioxide Anion Gap BUN Creatinine Est GFR ( Amer) Est GFR (Non-Af Amer) BUN/Creatinine Ratio Glucose POC Glucose (mg/dL) 135 H 141 H Lactic Acid 3.3 H* Calcium Magnesium Total Bilirubin Direct Bilirubin Indirect Bilirubin AST ALT Alkaline Phosphatase Total Protein Albumin Globulin Albumin/Globulin Ratio Studies: Sputum culture growing Staph but Gram's stain shows mostly epithelial cells, so doubt this is a reliable specimen. Impression: 1. Clinically improving 2. Positive fluid balance 3. Hypomagnesemia Plan: 1. Continue present antibiotic regimen 2. Cut back on IV fluids 3. Replace magnesium to help with AFib 4. ID service evaluating patient
[2019-03-22] MEDS ORDERED: Vancomycin per Pharmacy* NOTE FOLLOW UP SCH (18:00)
[2019-03-22] MEDS ORDERED: Vancomycin(*) 1,000 MG in NS 0.9% 250 ML* 250 ML IVPB ONE (18:30)
[2019-03-22] MEDS: VICKS VAPO RUB TOPICAL SCH (18:36)
[2019-03-22] MEDS: Cefepime 2 GM in Dextrose(*) 2 GM/50 ML BAG IV SCH (18:53)
[2019-03-22] MEDS: Atorvastatin* 10 MG TAB PO SCH (21:11)
[2019-03-22] MEDS ORDERED: Metoprolol Tartrate IV* 1 MG/ML 5 ML VIAL IV SCH (21:15)
[2019-03-22] MEDS: Nicotine Patch Removal NOTE PATCH OFF SCH (21:17)
[2019-03-22] MEDS: Azithromycin 500 mg/250 ml NS 500 MG/250 ML BAG IVPB SCH (23:12)
[2019-03-23] MEDS: VICKS VAPO RUB TOPICAL SCH ×3 (02:09→17:44)
[2019-03-23] MEDS: Metoprolol Tartrate IV* 1 MG/ML 5 ML VIAL IV SCH ×4 (02:09→20:50)
[2019-03-23] MEDS: Cefepime 2 GM in Dextrose(*) 2 GM/50 ML BAG IV SCH ×2 (02:09→10:37)
[2019-03-23] MEDS: Diltiazem TAB* 30 MG PO SCH ×2 (02:09→08:56)
[2019-03-23 05:58] LABS: Hematocrit 33 % (35-47); Hemoglobin 11.3 g/dL (12.0-16.0); Mean Corpuscular HGB Conc 34 g/dL (31-36); Mean Corpuscular Hemoglobin 27 pg (27-31); Mean Corpuscular Volume 81 fL (80-97); Mean Platelet Volume 8.3 fL (7.4-10.4); Platelet Count 230 10^3/uL (150-450); Red Blood Count 4.12 10^6 /uL (3.70-4.87); Red Cell Distribution Width 14 % (10-15); White Blood Count 10.4 10^3/uL (3.5-10.8)
[2019-03-23] MEDS: Enoxaparin(*) 60 MG/0.6 ML SYR SUBCUT SCH ×2 (06:04→18:10)
[2019-03-23] MEDS: Vancomycin(*) 1,000 MG in NS 0.9% 250 ML* 250 ML IVPB SCH ×3 (06:04→20:50)
[2019-03-23 07:33] LABS: ABS Lymphocytes 0.4 10^3/ul (1.0-4.8); ABS Monocytes 0.3 10^3/ul (0-0.8); ABS Neutrophils 9.7 10^3/ul (1.5-7.7); Lymphocyte % 3.7 %; Nucleated Red Blood Cells % 0.1
[2019-03-23] MEDS: Mometasone 220 MCG MDI INH SCH (08:11)
[2019-03-23] MEDS: Nicotine PATCH 21 MG/24 HR* PATCH TRANSDERM SCH (08:55)
[2019-03-23] MEDS: Insulin LISPRO* 1 UNITS UNIT SUBCUT SCH ×4 (08:55→21:01)
[2019-03-23] MEDS: Potassium Chlor TAB* 20 MEQ TAB.ER PO SCH (08:56)
[2019-03-23] MEDS: guaiFENesin ER TAB 600 MG PO SCH (08:56)
[2019-03-23] MEDS ORDERED: Magnesium Sulfate IV* 3 GM in NS 0.9% 100 ML* 100 ML IVPB ONE (09:49)
[2019-03-23] MEDS ORDERED: Diltiazem 125 mg in 125 mL NS (continuous infusion) IV SCH (10:00)
[2019-03-23] MEDS ORDERED: Amiodarone 150 MG IVPREMIX* 150 MG/100 ML BAG IV ONE (13:33)
--- NOTE | 2019-03-23 13:50 | PN ---
Date of Service: 03/23/19 Critical Care Services: Continues to do well clinically - remains on high-flow nasal O2 but we are slowly decreasing the FIO2. AFib has been poorly controlled on diltiazem so we will try amiodarone. Vital Signs: Temp Pulse Resp BP SpO2 FiO2 100.9 F 113 31 159/74 97 60 Tmax past 24 hrs = 100.9F Physical Exam: Gen:Alert, orientd, comfortable HEENT: No adenopathy Lungs: Crackles right base. No wheezes Cardiac: Irreg rhythm Abdomen:Not distended Extremities: No cyanosis or edema Fluid Balance (Past 24 Hours): 03/21/19 03/22/19 03/23/19 06:59 06:59 06:59 Intake Total 2596 5472 4408 Output Total 1400 1850 Balance 2596 4072 2558 Weight 141 lb 9 oz 141 lb 4.8 oz Intake: IV Fluids 1965 3763 3628 LR 1965 3681 3083 NS (0.9%) 82 545 IVPB 599 ABX - AZITHROMYCIN 276 ABX - ZOSYN 323 Oral 630 1110 780 Output: Urine 1400 1850 Other: Estimated Void Large Large Date of Last Bowel 03/21/19 Movement # Bowel Movements 1 Estimated Stool Amount Small # Voids 1 1 Labs: Laboratory Results - last 24 hr 03/23/19 05:28 WBC RBC Hgb Hct MCV MCH MCHC RDW Plt Count MPV Neut % (Auto) Lymph % (Auto) Mitchell % (Auto) Eos % (Auto) Baso % (Auto) Absolute Neuts (auto) Absolute Lymphs (auto) Absolute Monos (auto) Absolute Eos (auto) Absolute Basos (auto) Absolute Nucleated RBC Nucleated RBC % POC Glucose (mg/dL) C-Reactive Protein 314.43 H 03/23/19 03/23/19 05:28 07:35 WBC 10.4 RBC 4.12 Hgb 11.3 L Hct 33 L MCV 81 MCH 27 MCHC 34 RDW 14 Plt Count 230 MPV 8.3 Neut % (Auto) 93.1 Lymph % (Auto) 3.7 Mitchell % (Auto) 3.0 Eos % (Auto) 0.0 Baso % (Auto) 0.2 Absolute Neuts (auto) 9.7 H Absolute Lymphs (auto) 0.4 L Absolute Monos (auto) 0.3 Absolute Eos (auto) 0.0 Absolute Basos (auto) 0.0 Absolute Nucleated RBC 0.0 Nucleated RBC % 0.1 POC Glucose (mg/dL) 155 H Studies: CXR: pending Nutrition: Oral diet - intake good Impression: 1. Looks better clinically, but the persistence of fever and elevated CRP is concerning. 2. AFib poorly controlled on diltiazem Plan: 1. CT scan of chest to look at the pleural effusion. If fever persists, we need to tap the effusion to look for a complicated parapneumonic effusion (e.g., empyema). 2. Amiodarone infusion for the AFib Critical Care Time: 35 minutes (including time to discuss case with infectious disease ergonomics consultant).
[2019-03-23] MEDS ORDERED: Iodixanol* (CONTRAST) 320 MG/ML 100 ML SDV IV ONE (13:53)
[2019-03-23] MEDS ORDERED: Amiodarone 360 MG IVPREMIX* 360 MG/200 ML BAG IV ONE (14:00)
[2019-03-23] MEDS ORDERED: Acetaminophen TAB* 325 MG PO PRN (16:22)
[2019-03-23] MEDS: Atorvastatin* 10 MG TAB PO SCH (20:50)
[2019-03-23] MEDS: Nicotine Patch Removal NOTE PATCH OFF SCH (20:51)
[2019-03-23] MEDS: Amiodarone 360 MG IVPREMIX* 360 MG/200 ML BAG IV SCH (21:01)
[2019-03-23] MEDS: Azithromycin 500 mg/250 ml NS 500 MG/250 ML BAG IVPB SCH (23:01)
[2019-03-24] MEDS: VICKS VAPO RUB TOPICAL SCH ×3 (00:04→18:42)
[2019-03-24] MEDS: Metoprolol Tartrate IV* 1 MG/ML 5 ML VIAL IV SCH ×4 (01:40→20:38)
[2019-03-24 04:38] LABS: Hematocrit 31 % (35-47); Hemoglobin 10.6 g/dL (12.0-16.0); Mean Corpuscular HGB Conc 34 g/dL (31-36); Mean Corpuscular Hemoglobin 28 pg (27-31); Mean Corpuscular Volume 80 fL (80-97); Platelet Count 242 10^3/uL (150-450); Red Blood Count 3.88 10^6 /uL (3.70-4.87); Red Cell Distribution Width 14 % (10-15); White Blood Count 8.4 10^3/uL (3.5-10.8)
[2019-03-24 04:39] LABS: ABS Lymphocytes 0.5 10^3/ul (1.0-4.8); ABS Monocytes 0.4 10^3/ul (0-0.8); ABS Neutrophils 7.5 10^3/ul (1.5-7.7)
[2019-03-24 04:55] LABS: C Reactive Protein 259.22 mg/L (<8.01); EGFR African American 207.6 (>60); EGFR Non-African American 171.6 (>60)
[2019-03-24 05:11] LABS: Vancomycin Trough 7.8 mcg/mL
[2019-03-24] MEDS ORDERED: Vancomycin Trough Check NOTE FOLLOW UP ONE (05:30)
[2019-03-24 05:35] LABS: Eosinophil % 0.2 %; Lymphocyte % 5.9 %
[2019-03-24] MEDS: Vancomycin(*) 1,000 MG in NS 0.9% 250 ML* 250 ML IVPB SCH (05:42)
[2019-03-24] MEDS: Enoxaparin(*) 60 MG/0.6 ML SYR SUBCUT SCH ×2 (05:43→18:42)
[2019-03-24] MEDS: Amiodarone 360 MG IVPREMIX* 360 MG/200 ML BAG IV SCH (07:37)
[2019-03-24] MEDS: Potassium Chlor TAB* 20 MEQ TAB.ER PO SCH ×2 (08:04→08:18)
[2019-03-24] MEDS: Insulin LISPRO* 1 UNITS UNIT SUBCUT SCH ×4 (08:04→21:42)
[2019-03-24] MEDS: Nicotine PATCH 21 MG/24 HR* PATCH TRANSDERM SCH (08:04)
[2019-03-24] MEDS ORDERED: Vancomycin(*) 1,250 MG in NS 0.9% 250 ML* 250 ML IVPB SCH (09:04)
--- NOTE | 2019-03-24 09:16 | PN ---
Hospitalist Progress Note Date of Service: 03/24/19 Subjective- Pt still has no complaints and feels much better -no overnight events Objective- vitals- Temp-99.8 Heart rate- 91 resp rate-23 o2 sat-97 BP- 136/82 comments- Pt is off vapotherm and is on nasal O2 at 5L/min GENERAL: Pt appears well EENT: oropharynx is dry NECK: Supple. No jugular venous distention. LUNGS: The patient had rhonchi bilaterally HEART: no appreciable murmurs. (irregular rhythm) ABDOMEN: Soft, nontender, nondistended. EXTREMITIES: No cyanosis, clubbing, or edema. hgb- 10.6 hct-31 abs lymphocytes- 0.5 INR-1.13 K+= 3.0 creatinine-.38 BUN-9 (normal) glucose-143 CRP-259.[address]- right lower lobe consolidation, patchy airspace disease of left upper lobe, right middle lobe and left lower lobe atelectasis, large right pleural effusion, small left pleural effusion, small pericardial effusion Chest u/s-right pleural effusion w/ right lower lobe consolidation u/s thoracocentesis- culture sent(sending for gram stain, culture, pH, and LDH) Assessment/Plan Pt is a 63yr old female w/ past medical hx of diabetes, htn, dyslipidemia, osteoporosis, bornchitits, kidney stones, and multiple stents. Pt presented with fevers and flank pain with hyponatremia and is Legionella positive and CT shows PNA. 1. Sepsis secondary to right lower lobe pneumonia due to Legionella with concern for complicated parapneumonic effusion. -Azithromycin 500mg in 250 mls IV and Vancomycin 1,250mg 250mls @166 mls/hr IV Q8h -u/s thoracocentesis to look at pleural effusion. To look for complicated parapneumonic effusion(empyema) 2. Hypoxic respiratory failure, likely secondary to pneumonia, questionable component of chronic obstructive pulmonary disease given the diffuse wheezing. We will treat as the patient has chronic obstructive pulmonary disease exacerbation given history of chronic smoking with [id number] history. - Albuterol/ipratropium - 1 neb INH RT Q4 hrs PRN 3. Has atrial fibrillation and [id number] risk of 2 - Now on amiodarone 200mg PO daily for rate control -enoxaparin 60mg subcut 4. Hepatic steatosis likely secondary to nonalcoholic liver disease. 5. Right adrenal nodule. We will consider followup with an adrenal CT on discharge. 6. History of diabetes. -Lispro sliding scale -Glipizide 5mg oral daily 7. History of hypertension. 8. History of dyslipidemia. atorvastatin-10mg po daily 9. Osteoporosis -alendronate 70 mg po weekly 10. DVT prophylaxis -Enoxaparin 60mg subcut 11. Smoking cessation -pt agreed to nicotine patch 21mg(1 patch 12.)Tachycardia -Metoprolol 5mg IV Q6H PRN(0445) -Amiodarone 200mg PO daily
--- NOTE | 2019-03-24 09:43 | PN ---
Progress Note - Progress Note Date of Service: 03/24/19 SOAP: Subjective: CC: Pneumonia HPI: Ms. Gary is a 63 yo female with PMH significant for DM2, HTN, HLD, and osteoporosis; who presented to the hospital for fever and was admitted for pneumonia. Denies chills, nausea, vomiting, or diarrhea. Reports continued fevers, cough that is non productive. She states that her shortness of breath is improving. She states that she is starting to feel better. Objective: Vital Signs - 8 hr 03/24/19 03/24/19 03/24/19 07:00 08:00 09:00 Temperature 97.4 F Pulse Rate 92 91 93 Respiratory 23 21 25 Rate Blood Pressure 140/77 143/77 140/90 (mmHg) O2 Sat by Pulse 100 99 95 Oximetry Physical Exam: General: NAD, sitting up in bed Neurological: Alert and Oriented HEENT: Moist MM, no thrush Cardiovascular: Heart rate irregular Respiratory: Lung sound diminished Abdominal: Bowel sounds present; ABD soft, non tender and non distended Skin: No rash Laboratory Results - last 24 hr 03/23/19 03/24/19 03/24/19 20:55 04:18 04:18 WBC 8.4 RBC 3.88 Hgb 10.6 L Hct 31 L MCV 80 MCH 28 MCHC 34 RDW 14 Plt Count 242 MPV 8.0 Neut % (Auto) 89.4 Lymph % (Auto) 5.9 Placer % (Auto) 4.4 Eos % (Auto) 0.2 Baso % (Auto) 0.1 Absolute Neuts (auto) 7.5 Absolute Lymphs (auto) 0.5 L Absolute Monos (auto) 0.4 Absolute Eos (auto) 0.0 Absolute Basos (auto) 0.0 Absolute Nucleated RBC 0.0 Nucleated RBC % 0.0 BUN 9 Creatinine 0.38 L Est GFR ( Amer) 207.6 Est GFR (Non-Af Amer) 171.6 POC Glucose (mg/dL) 176 H C-Reactive Protein 259.22 H Vancomycin Trough 7.8 Microbiology 03/18/19 22:05 Aerobic Blood Culture - Final Blood Venous No Growth Day 5 Anaerobic Blood Culture - Final No Growth Day 5 03/18/19 22:05 Aerobic Blood Culture - Final Blood Venous No Growth Day 5 Anaerobic Blood Culture - Final No Growth Day 5 03/21/19 15:58 Gram Stain - Final No Source Provided Sputum Culture - Final MRSA Normal Dean 03/21/19 10:08 Nasal Screen MRSA (PCR) - Final Nasal Mrsa Detected 03/18/19 23:18 Urine Culture - Final Urine No Growth (<1,000 CFU/mL) 03/19/19 12:15 Legionella Urinary Antigen - Final Urine Positive Legionella Antigen Streptococcus pneumoniae Ag Screen - Final Negative S. pneumo Antigen Assessment: 1. Community Acquired PNA, Legionella. Blood cultures with no growth to date. Urine antigen for Legionella positive. Sputum culture with normal dean and MRSA. She was not improving on legionella treatment alone, and ABX were broadened. Continues to have fevers in the evening, last 102 yesterday afternoon. Initial leukocytosis resolved. Continues to have tachycardia. 2. Acute hypoxic respiratory failure. Improving, vapotherm is being weaned. 3. DM2. Plan: Continue Vancomycin and Azithromycin. Recommend obtaining a chest CT to evaluate for lung abscess or pleural effusion. Should have aspiration of pleural effusion if it is large. Further recommendations will be based on clinical course and CT results.
[2019-03-24] MEDS: Amiodarone TAB* 200 MG PO SCH (13:38)
[2019-03-24] MEDS: Vancomycin(*) 1,250 MG in NS 0.9% 250 ML* 250 ML IVPB SCH ×2 (13:39→22:03)
--- NOTE | 2019-03-24 14:00 | PN ---
Date of Service: 03/24/19 Critical Care Services: Doing well today - is off vapotherm and on nasal O2 at 5 L/min. Last fever was T =102 at 4PM yesterday. Other problem is AFib, which is rate controlled on amiodarone (switched from IV to PO). Vital Signs: Temp Pulse Resp BP SpO2 FiO2 98.9 F 92 24 136/82 97 40 Physical Exam: Gen:Alert, oriented, comfortable HEENT: No adenopathy Lungs:Decreased BS and crackles right base. No wheezes Cardiac: Irreg rhythm. No rub Abdomen:Not distended Extremities: No cyanosis. Trace edema. Fluid Balance (Past 24 Hours): 03/22/19 03/23/19 03/24/19 06:59 06:59 06:59 Intake Total 5472 4408 2844 Output Total 1400 1850 3050 Balance 4072 2558 -206 Weight 141 lb 9 oz 141 lb 4.8 oz 142 lb 9 oz Intake: IV Fluids 3763 3628 1909 ABX - AZITHROMYCIN 120 ABX - VANCOMYCIN 250 LR 3681 3083 936 NS (0.9%) 82 545 603 IVPB 599 ABX - AZITHROMYCIN 276 ABX - ZOSYN 323 Medicated IV 205 CC - Amiodarone 205 Oral 1110 780 730 Output: Urine 1400 1850 3050 Other: Estimated Void Large Large Large Date of Last Bowel 03/21/19 Movement # Bowel Movements 1 Estimated Stool Amount Small # Voids 1 1 1 Labs: Laboratory Results - last 24 hr 03/23/19 03/23/19 03/24/19 17:34 20:55 04:18 WBC RBC Hgb Hct MCV MCH MCHC RDW Plt Count MPV Neut % (Auto) Lymph % (Auto) [place] % (Auto) Eos % (Auto) Baso % (Auto) Absolute Neuts (auto) Absolute Lymphs (auto) Absolute Monos (auto) Absolute Eos (auto) Absolute Basos (auto) Absolute Nucleated RBC Nucleated RBC % BUN 9 Creatinine 0.38 L Est GFR ( Amer) 207.6 Est GFR (Non-Af Amer) 171.6 POC Glucose (mg/dL) 208 H 176 H C-Reactive Protein 259.22 H Vancomycin Trough 7.8 03/24/19 03/24/19 03/24/19 04:18 07:53 12:44 WBC 8.4 RBC 3.88 Hgb 10.6 L Hct 31 L MCV 80 MCH 28 MCHC 34 RDW 14 Plt Count 242 MPV 8.0 Neut % (Auto) 89.4 Lymph % (Auto) 5.9 [place] % (Auto) 4.4 Eos % (Auto) 0.2 Baso % (Auto) 0.1 Absolute Neuts (auto) 7.5 Absolute Lymphs (auto) 0.5 L Absolute Monos (auto) 0.4 Absolute Eos (auto) 0.0 Absolute Basos (auto) 0.0 Absolute Nucleated RBC 0.0 Nucleated RBC % 0.0 BUN Creatinine Est GFR ( Amer) Est GFR (Non-Af Amer) POC Glucose (mg/dL) 143 H 175 H C-Reactive Protein Vancomycin Trough Studies: CT of thorax shows a large right-sided pleural effusion and a dense consolidation of the right lower lobe. There is also a small pericardial effusion Nutrition: Reg diet - intake good Impression: 1. Legionnaire's pneumonia 2. Parapneumonic effusion - ? complicated effusion (because of persistence of fever) 3. MRSA in sputum culture, but doubt significance because specimen contained numerous squamous epithelial cells from the mouth. 4. Acute AFib - probably from an acute myocarditis Plan: 1. IR service will tap the right chest for pleural fluid and we will send fluid for Gram's stain, culture, pH, and LDH. 2. Continue current antibiotics. 3. Continue oral amiodarone 4. Transfer out of ICU ID service is actively following. Critical Care Time: 40 minutes (including time discussing case with IR service).
[2019-03-24 15:24] LABS: Body Fluid Source Pleural Fluid
[2019-03-24 16:44] LABS: Body Fluid Mono 39 %
[2019-03-24] MEDS: Atorvastatin* 10 MG TAB PO SCH (20:38)
[2019-03-25] MEDS: Azithromycin 500 mg/250 ml NS 500 MG/250 ML BAG IVPB SCH (01:58)
[2019-03-25] MEDS: VICKS VAPO RUB TOPICAL SCH ×3 (01:58→18:00)
[2019-03-25] MEDS: Metoprolol Tartrate IV* 1 MG/ML 5 ML VIAL IV SCH ×2 (03:07→09:26)
[2019-03-25] MEDS: Albuterol/Ipratropium NEB.SOL* Albuterol 2.5 MG/Ipratropium 0.5 MG 3 ML INH PRN (03:30)
[2019-03-25] MEDS: Vancomycin(*) 1,250 MG in NS 0.9% 250 ML* 250 ML IVPB SCH ×3 (06:12→23:58)
[2019-03-25] MEDS: Enoxaparin(*) 60 MG/0.6 ML SYR SUBCUT SCH ×2 (06:12→18:00)
[2019-03-25 07:39] LABS: ABS Eosinophils 0.1 10^3/ul (0-0.6); ABS Lymphocytes 0.5 10^3/ul (1.0-4.8); ABS Monocytes 0.5 10^3/ul (0-0.8); ABS Neutrophils 6.3 10^3/ul (1.5-7.7); Eosinophil % 0.9 %; Hematocrit 30 % (35-47); Hemoglobin 10.4 g/dL (12.0-16.0); Lymphocyte % 6.3 %; Mean Corpuscular HGB Conc 34 g/dL (31-36); Mean Corpuscular Hemoglobin 28 pg (27-31); Mean Corpuscular Volume 80 fL (80-97); Mean Platelet Volume 8.1 fL (7.4-10.4); Platelet Count 241 10^3/uL (150-450); Red Blood Count 3.76 10^6 /uL (3.70-4.87); Red Cell Distribution Width 14 % (10-15); White Blood Count 7.3 10^3/uL (3.5-10.8)
[2019-03-25] MEDS ORDERED: Acetaminophen TAB* 325 MG PO PRN (07:58)
[2019-03-25 08:04] LABS: C Reactive Protein 171.23 mg/L (<8.01)
[2019-03-25 08:46] LABS: Total Protein 4.3 g/dL (6.4-8.9)
[2019-03-25] MEDS: Amiodarone TAB* 200 MG PO SCH (09:25)
[2019-03-25] MEDS: Gabapentin CAP(*) 100 MG PO SCH ×2 (09:25→20:35)
[2019-03-25] MEDS: Insulin LISPRO* 1 UNITS UNIT SUBCUT SCH ×4 (09:25→21:21)
[2019-03-25] MEDS: Acyclovir* 400 MG TAB PO SCH ×4 (12:20→21:21)
--- NOTE | 2019-03-25 13:28 | PN ---
Subjective Date of Service: 03/25/19 Interval History: Patient complained of severe burning sensation from right flank along the lower rib. No rashes or vesicles seen. Complained generalized distension. Afebrile for 24 hours. Objective Active Medications: Acetaminophen (Tylenol Tab*) 650 mg PO Q6H PRN PRN Reason: PAIN - MILD Acyclovir (Zovirax Tab*) 800 mg PO FIVE TIMES DAILY [facility] Stop: 04/01/19 09:59 Last Admin: 03/25/19 12:20 Dose: 800 mg Albuterol/Ipratropium (Duoneb (Albuterol 2.5 Mg/Ipratropium 0.5 Mg)) 1 neb INH [id number] AWAKE PRN PRN Reason: SOB/WHEEZING Last Admin: 03/25/19 03:30 Dose: 1 neb Amiodarone HCl (Cordarone Tab*) 200 mg PO DAILY [facility] Last Admin: 03/25/19 09:25 Dose: 200 mg Atorvastatin Calcium (Lipitor*) 10 mg PO BEDTIME [facility] Last Admin: 03/24/19 20:38 Dose: 10 mg Dextrose (Dextrose 50% Vial 50 Ml*) 25 ml IV PUSH .FOR FS < 60 - SS PRN PRN Reason: FS < 60 Enoxaparin Sodium (Lovenox(*)) 60 mg SUBCUT 0600,1800 [facility] Last Admin: 03/25/19 06:12 Dose: 60 mg Gabapentin (Neurontin Cap(*)) 100 mg PO BID [facility] Last Admin: 03/25/19 09:25 Dose: 100 mg Azithromycin (Zithromax 500 Mg/250 Ml) 500 mg in 250 mls @ 250 mls/hr IVPB Q24H [facility] Last Admin: 03/25/19 01:58 Dose: 250 mls/hr Vancomycin HCl 1,250 mg/ (Sodium Chloride) 250 mls @ 166.667 mls/hr IVPB Q8H [facility]; Protocol Last Admin: 03/25/19 06:12 Dose: 166.667 mls/hr Insulin Human Lispro (Humalog*) 0 units SUBCUT ACHS [facility]; Protocol Last Admin: 03/25/19 13:10 Dose: 6 unit Metoprolol Tartrate (Lopressor Tab*) 12.5 mg PO Q12HR [facility] Vicks Vapo Rub 1 dose TOPICAL Q8H [facility] Last Admin: 03/25/19 09:26 Dose: Not Given Pharmacy Consult (Vancomycin Per Pharmacy*) 1 note FOLLOW UP .VANC PER PHARMACY [facility]; Protocol Pharmacy Profile Note (Vancomycin Trough Check) 1 note FOLLOW UP 05 ONE Stop: 03/26/19 05:31 Vital Signs - 8 hr 03/25/19 03/25/19 03/25/19 07:24 09:25 12:22 Temperature 97.5 F Pulse Rate 93 Respiratory 18 18 18 Rate Blood Pressure 140/69 (mmHg) O2 Sat by Pulse 97 Oximetry Oxygen Devices in Use Now: Nasal Cannula Exam: Gen:in distress due to right rib pain HEENT: normal Lungs: right side decreased air entry up to middle area; swollen on palpation Cardiac: irregular rhythm , HR in 100s Abdomen: distended, Skin: no rashes seen Extremities: No cyanosis. pitting edema on leg, sacral edema Result Diagrams: 03/25/19 07:19 03/24/19 04:18 Additional Lab and Data: Lab Results 03/18/19 03/18/19 03/18/19 Range/Units 22:05 22:05 22:05 WBC 12.2 H (3.5-10.8) 10^3/uL RBC 5.11 H (3.70-4.87) 10^6 /uL Hgb 14.0 (12.0-16.0) g/dL Hct 42 (35-47) % MCV 82 (80-97) fL MCH 27 (27-31) pg MCHC 33 (31-36) g/dL RDW 14 (10-15) % Plt Count 164 (150-450) 10^3/uL MPV 8.7 (7.4-10.4) fL Neut % (Auto) 91.2 % Lymph % (Auto) 4.2 % [place] % (Auto) 4.2 % Eos % (Auto) 0.0 % Baso % (Auto) 0.4 % Absolute Neuts (auto) 11.1 H (1.5-7.7) 10^3/ul Absolute Lymphs (auto) 0.5 L (1.0-4.8) 10^3/ul Absolute Monos (auto) 0.5 (0-0.8) 10^3/ul Absolute Eos (auto) 0.0 (0-0.6) 10^3/ul Absolute Basos (auto) 0.1 (0-0.2) 10^3/ul Absolute Nucleated RBC 0.0 10^3/ul Nucleated RBC % 0.0 INR (Anticoag Therapy) 1.26 H (0.82-1.09) Sodium 125 L (135-145) mmol/L Potassium 3.8 (3.5-5.0) mmol/L Chloride 95 L (101-111) mmol/L Carbon Dioxide 21 L (22-32) mmol/L Anion Gap 9 (2-11) mmol/L BUN 15 (6-24) mg/dL Creatinine 0.80 (0.51-0.95) mg/dL Est GFR ( Amer) 87.9 (>60) Est GFR (Non-Af Amer) 72.7 (>60) BUN/Creatinine Ratio 18.8 (8-20) Glucose 287 H (70-100) mg/dL Lactic Acid (0.5-2.0) mmol/L Calcium 9.1 (8.6-10.3) mg/dL Total Bilirubin 0.40 (0.2-1.0) mg/dL AST 26 (13-39) U/L ALT 21 (7-52) U/L Alkaline Phosphatase 63 (34-104) U/L Troponin I 0.10 H* (<0.04) ng/mL C-Reactive Protein 399.05 H (<8.01) mg/L Total Protein 7.1 (6.4-8.9) g/dL Albumin 3.6 (3.2-5.2) g/dL Globulin 3.5 (2-4) g/dL Albumin/Globulin Ratio 1.0 (1-3) 03/18/19 Range/Units 22:05 WBC (3.5-10.8) 10^3/uL RBC (3.70-4.87) 10^6 /uL Hgb (12.0-16.0) g/dL Hct (35-47) % MCV (80-97) fL MCH (27-31) pg MCHC (31-36) g/dL RDW (10-15) % Plt Count (150-450) 10^3/uL MPV (7.4-10.4) fL Neut % (Auto) % Lymph % (Auto) % [place] % (Auto) % Eos % (Auto) % Baso % (Auto) % Absolute Neuts (auto) (1.5-7.7) 10^3/ul Absolute Lymphs (auto) (1.0-4.8) 10^3/ul Absolute Monos (auto) (0-0.8) 10^3/ul Absolute Eos (auto) (0-0.6) 10^3/ul Absolute Basos (auto) (0-0.2) 10^3/ul Absolute Nucleated RBC 10^3/ul Nucleated RBC % INR (Anticoag Therapy) (0.82-1.09) Sodium (135-145) mmol/L Potassium (3.5-5.0) mmol/L Chloride (101-111) mmol/L Carbon Dioxide (22-32) mmol/L Anion Gap (2-11) mmol/L BUN (6-24) mg/dL Creatinine (0.51-0.95) mg/dL Est GFR ( Amer) (>60) Est GFR (Non-Af Amer) (>60) BUN/Creatinine Ratio (8-20) Glucose (70-100) mg/dL Lactic Acid 1.9 (0.5-2.0) mmol/L Calcium (8.6-10.3) mg/dL Total Bilirubin (0.2-1.0) mg/dL AST (13-39) U/L ALT (7-52) U/L Alkaline Phosphatase (34-104) U/L Troponin I (<0.04) ng/mL C-Reactive Protein (<8.01) mg/L Total Protein (6.4-8.9) g/dL Albumin (3.2-5.2) g/dL Globulin (2-4) g/dL Albumin/Globulin Ratio (1-3) Microbiology and Other Data: Microbiology 03/21/19 10:08 Nasal Screen MRSA (PCR) - Final Nasal Mrsa Detected 03/18/19 22:05 Aerobic Blood Culture - Preliminary Blood Venous No Growth Day 2 Anaerobic Blood Culture - Preliminary No Growth Day 2 03/18/19 22:05 Aerobic Blood Culture - Preliminary Blood Venous No Growth Day 2 Anaerobic Blood Culture - Preliminary No Growth Day 2 03/18/19 23:18 Urine Culture - Final Urine No Growth (<1,000 CFU/mL) 03/19/19 12:15 Legionella Urinary Antigen - Final Urine Positive Legionella Antigen Streptococcus pneumoniae Ag Screen - Final Negative S. pneumo Antigen Assess/Plan/Problems-Billing 63 year old woman with history of nephrolithiasis, HTN, and tobacco use admitted on 03/19 with back pain and found to have RLL pneumonia on the CT abd/ pelvis and urine legionella antigen positive, in ICU from 03/21-03/24 for hypoxic respiratory failure requiring Vapotherm, s/p thoracocentesis yesterday with only scant fluid obtained. Her course complicated with possible early shingles and anasarca due to malnutrition. - Patient Problems (1) Acute hypoxemic respiratory failure Current Visit: Yes Status: Acute Code(s): J96.01 - ACUTE RESPIRATORY FAILURE WITH HYPOXIA SNOMED Code(s): 184753836 Comment: Legionella pneumonia with right side pleural effusion D5 Azithromycin, D3 Vancomycin for MRSA found in sputum cs requiring ICU stay 03/20- for high flow nasal cannula thoracocentesis 03/24/2019 only scant fluid obtained, normal WBC, LDH, protein pending continue abx for now, wean down O2 (2) Atrial fibrillation Current Visit: Yes Status: Acute Code(s): I48.91 - UNSPECIFIED ATRIAL FIBRILLATION SNOMED Code(s): 77168634 Comment: AFib with RVR, BP okay TTE no valvular changes oralize to metoprolol 12.5mg Q12h continue therapeutic dose of Lovenox for her with a [id number] of 2, continue to switch to Xarelto once pt further improves (3) Shingles Current Visit: Yes Status: Acute Code(s): B02.9 - ZOSTER WITHOUT COMPLICATIONS SNOMED Code(s): 5435902 Comment: new onset of right burning sensation in dermatone distribution, concerning for shingles although no vesicles seen now. Start acyclovir 7 days. (4) COPD exacerbation Current Visit: Yes Status: Acute Code(s): J44.1 - CHRONIC OBSTRUCTIVE PULMONARY DISEASE W (ACUTE) EXACERBATION SNOMED Code(s): 617135147 Comment: complicated with acute COPD exacerbation with ongoing pneumonia completed 3 days of pred burst (5) Nicotine dependence Current Visit: Yes Status: Acute Code(s): F17.200 - NICOTINE DEPENDENCE, UNSPECIFIED, UNCOMPLICATED SNOMED Code(s): 86073325 Comment: start nicotine patch (6) DVT prophylaxis Current Visit: Yes Status: Acute Code(s): Z29.9 - ENCOUNTER FOR PROPHYLACTIC MEASURES, UNSPECIFIED SNOMED Code(s): 032511928 Comment: therapeutic lovenox (7) Anasarca Current Visit: Yes Status: Acute Code(s): R60.1 - GENERALIZED EDEMA SNOMED Code(s): 934835154 Comment: probably due to malnutrition caused low albumin, last albumin 23 nutrition review, start glucerna Status and Disposition: Inpatient Medicine. Attestation Documenting Resident: Jessenia Nixon Supervising Physician: Thea Davila Attending/Supervising Physician Comment: Improving legionella pneumonia with decreasing O2 requirements. No LDH/protein sent from yesterday's pleural fluid; will attempt to add on today. Awaiting culture, though gram stain unremarkable. Now with a burning sensation over dermatomal pattern on back. Suspect zoster without appearance of vesicles yet; will treat empirically. Attestation: This service has been performed in part by a resident under the direction of a teaching physician.I, Thea Davila, performed the service, or was physically present during the critical, or rodgers portions of the service, furnished by the resident. I participated in the management of the patient.
[2019-03-25] MEDS: Furosemide TAB* 20 MG PO SCH (18:54)
[2019-03-25] MEDS: Atorvastatin* 10 MG TAB PO SCH (20:36)
[2019-03-25] MEDS ORDERED: Metoprolol Tartrate TAB* 25 MG PO SCH ×2 (21:00)
[2019-03-26] MEDS: Azithromycin 500 mg/250 ml NS 500 MG/250 ML BAG IVPB SCH (02:58)
[2019-03-26] MEDS: VICKS VAPO RUB TOPICAL SCH ×3 (03:01→17:51)
[2019-03-26] MEDS: Enoxaparin(*) 60 MG/0.6 ML SYR SUBCUT SCH ×2 (05:28→17:48)
[2019-03-26] MEDS: Acyclovir* 400 MG TAB PO SCH ×5 (05:28→21:05)
[2019-03-26] MEDS ORDERED: Vancomycin Trough Check NOTE FOLLOW UP ONE (05:30)
[2019-03-26 06:35] LABS: Albumin/Globulin Ratio 0.8 (1-3); BUN/Creatinine Ratio 10.7 (8-20); Calcium 7.3 mg/dL (8.6-10.3); EGFR African American 132.7 (>60); EGFR Non-African American 109.7 (>60); Globulin 2.5 g/dL (2-4); Total Bilirubin 0.3 mg/dL (0.2-1.0); Total Protein 4.5 g/dL (6.4-8.9)
[2019-03-26 06:38] LABS: Potassium 2.3 mmol/L (3.5-5.0)
[2019-03-26] MEDS: Vancomycin(*) 1,250 MG in NS 0.9% 250 ML* 250 ML IVPB SCH (06:57)
[2019-03-26 07:43] LABS: Magnesium 1.8 mg/dL (1.9-2.7)
[2019-03-26] MEDS ORDERED: KCL 20 MEQ/100 ML IVPREMIX* 20 MEQ/100 ML BAG IV SCH (08:00)
[2019-03-26] MEDS ORDERED: Potassium Chlor TAB* 20 MEQ TAB.ER PO SCH ×2 (08:00→09:00)
[2019-03-26] MEDS ORDERED: Magnesium Sulfate 2 GM IV* 2 GM/50 ML BAG IVPB ONE (08:08)
--- NOTE | 2019-03-26 08:33 | PN ---
Subjective Date of Service: 03/26/19 Interval History: Karla feels good this morning. Ate entire breakfast. Pain on left flank is the same as yesterday--described as burning skin pain. No cough, no shortness of breath. Zeyad tried to wean o2 yesterday but Karla didn't want her to wean it past 3L. Walks to bathroom wtih no difficulty. Objective Active Medications: Acetaminophen (Tylenol Tab*) 650 mg PO Q6H PRN PRN Reason: PAIN - MILD Acyclovir (Zovirax Tab*) 800 mg PO FIVE TIMES DAILY [facility] Stop: 04/01/19 09:59 Last Admin: 03/26/19 05:28 Dose: 800 mg Albuterol/Ipratropium (Duoneb (Albuterol 2.5 Mg/Ipratropium 0.5 Mg)) 1 neb INH [id number] AWAKE PRN PRN Reason: SOB/WHEEZING Last Admin: 03/25/19 03:30 Dose: 1 neb Amiodarone HCl (Cordarone Tab*) 200 mg PO DAILY [facility] Last Admin: 03/25/19 09:25 Dose: 200 mg Atorvastatin Calcium (Lipitor*) 10 mg PO BEDTIME [facility] Last Admin: 03/25/19 20:36 Dose: 10 mg Dextrose (Dextrose 50% Vial 50 Ml*) 25 ml IV PUSH .FOR FS < 60 - SS PRN PRN Reason: FS < 60 Enoxaparin Sodium (Lovenox(*)) 60 mg SUBCUT 0600,1800 [facility] Last Admin: 03/26/19 05:28 Dose: 60 mg Furosemide (Lasix Tab*) 20 mg PO DAILY [facility] Last Admin: 03/25/19 18:54 Dose: 20 mg Gabapentin (Neurontin Cap(*)) 100 mg PO BID [facility] Last Admin: 03/25/19 20:35 Dose: 100 mg Azithromycin (Zithromax 500 Mg/250 Ml) 500 mg in 250 mls @ 250 mls/hr IVPB Q24H [facility] Last Admin: 03/26/19 02:58 Dose: 250 mls/hr Potassium Chloride (Potassium Chloride 20 Meq/100 Ml Ivpremix*) 20 meq in 100 mls @ 50 mls/hr IV Q2H [facility] Stop: 03/26/19 13:59 Vancomycin HCl 1,000 mg/ (Sodium Chloride) 250 mls @ 166.667 mls/hr IVPB Q8H [facility] Magnesium Sulfate (Magnesium Sulfate 2 Gm Iv*) 2 gm in 50 mls @ 50 mls/hr IVPB ONCE ONE Stop: 03/26/19 09:07 Potassium Chloride (Potassium Chloride 20 Meq/100 Ml Ivpremix*) 20 meq in 100 mls @ 50 mls/hr IV Q2H [facility] Stop: 03/26/19 14:59 Insulin Human Lispro (Humalog*) 0 units SUBCUT ACHS [facility]; Protocol Last Admin: 03/25/19 21:21 Dose: 3 unit Metoprolol Tartrate (Lopressor Tab*) 25 mg PO Q12HR [facility] Last Admin: 03/25/19 20:35 Dose: 25 mg Vicks Vapo Rub 1 dose TOPICAL Q8H [facility] Last Admin: 03/26/19 03:01 Dose: Not Given Pharmacy Consult (Vancomycin Per Pharmacy*) 1 note FOLLOW UP .VANC PER PHARMACY [facility]; Protocol Pharmacy Profile Note (Vancomycin Trough Check) 1 note FOLLOW UP ONCE ONE Stop: 03/28/19 11:31 Potassium Chloride (Klor Con Er Tab*) 20 meq PO Q2H [facility] Stop: 03/26/19 10:01 Potassium Chloride (Klor Con Er Tab*) 20 meq PO TID [facility] Vital Signs - 8 hr 03/26/19 03:30 Temperature 97.6 F Pulse Rate 90 Respiratory 18 Rate Blood Pressure 142/67 (mmHg) O2 Sat by Pulse 95 Oximetry Oxygen Devices in Use Now: Nasal Cannula Appearance: alert, well appearing, no accessory resp muscle use Eyes: No Scleral Icterus Ears/Nose/Mouth/Throat: NL Teeth, Lips, Gums Neck: - - no appreciable JVP Respiratory: Symmetrical Chest Expansion and Respiratory Effort, Clear to Auscultation Cardiovascular: - - irregular rhythm, no murmurs Abdominal: NL Sounds; No Tenderness; No Distention, - - ++ presacral edema Lymphatic: No Cervical Adenopathy Extremities: - - 2+ edema Skin: - - hypersensitivity to light touch left flank, no vesicles Result Diagrams: 03/25/19 07:19 03/26/19 06:06 Additional Lab and Data: Lab Results 03/18/19 03/18/19 03/18/19 Range/Units 22:05 22:05 22:05 WBC 12.2 H (3.5-10.8) 10^3/uL RBC 5.11 H (3.70-4.87) 10^6 /uL Hgb 14.0 (12.0-16.0) g/dL Hct 42 (35-47) % MCV 82 (80-97) fL MCH 27 (27-31) pg MCHC 33 (31-36) g/dL RDW 14 (10-15) % Plt Count 164 (150-450) 10^3/uL MPV 8.7 (7.4-10.4) fL Neut % (Auto) 91.2 % Lymph % (Auto) 4.2 % [place] % (Auto) 4.2 % Eos % (Auto) 0.0 % Baso % (Auto) 0.4 % Absolute Neuts (auto) 11.1 H (1.5-7.7) 10^3/ul Absolute Lymphs (auto) 0.5 L (1.0-4.8) 10^3/ul Absolute Monos (auto) 0.5 (0-0.8) 10^3/ul Absolute Eos (auto) 0.0 (0-0.6) 10^3/ul Absolute Basos (auto) 0.1 (0-0.2) 10^3/ul Absolute Nucleated RBC 0.0 10^3/ul Nucleated RBC % 0.0 INR (Anticoag Therapy) 1.26 H (0.82-1.09) Sodium 125 L (135-145) mmol/L Potassium 3.8 (3.5-5.0) mmol/L Chloride 95 L (101-111) mmol/L Carbon Dioxide 21 L (22-32) mmol/L Anion Gap 9 (2-11) mmol/L BUN 15 (6-24) mg/dL Creatinine 0.80 (0.51-0.95) mg/dL Est GFR ( Amer) 87.9 (>60) Est GFR (Non-Af Amer) 72.7 (>60) BUN/Creatinine Ratio 18.8 (8-20) Glucose 287 H (70-100) mg/dL Lactic Acid (0.5-2.0) mmol/L Calcium 9.1 (8.6-10.3) mg/dL Total Bilirubin 0.40 (0.2-1.0) mg/dL AST 26 (13-39) U/L ALT 21 (7-52) U/L Alkaline Phosphatase 63 (34-104) U/L Troponin I 0.10 H* (<0.04) ng/mL C-Reactive Protein 399.05 H (<8.01) mg/L Total Protein 7.1 (6.4-8.9) g/dL Albumin 3.6 (3.2-5.2) g/dL Globulin 3.5 (2-4) g/dL Albumin/Globulin Ratio 1.0 (1-3) 03/18/19 Range/Units 22:05 WBC (3.5-10.8) 10^3/uL RBC (3.70-4.87) 10^6 /uL Hgb (12.0-16.0) g/dL Hct (35-47) % MCV (80-97) fL MCH (27-31) pg MCHC (31-36) g/dL RDW (10-15) % Plt Count (150-450) 10^3/uL MPV (7.4-10.4) fL Neut % (Auto) % Lymph % (Auto) % [place] % (Auto) % Eos % (Auto) % Baso % (Auto) % Absolute Neuts (auto) (1.5-7.7) 10^3/ul Absolute Lymphs (auto) (1.0-4.8) 10^3/ul Absolute Monos (auto) (0-0.8) 10^3/ul Absolute Eos (auto) (0-0.6) 10^3/ul Absolute Basos (auto) (0-0.2) 10^3/ul Absolute Nucleated RBC 10^3/ul Nucleated RBC % INR (Anticoag Therapy) (0.82-1.09) Sodium (135-145) mmol/L Potassium (3.5-5.0) mmol/L Chloride (101-111) mmol/L Carbon Dioxide (22-32) mmol/L Anion Gap (2-11) mmol/L BUN (6-24) mg/dL Creatinine (0.51-0.95) mg/dL Est GFR ( Amer) (>60) Est GFR (Non-Af Amer) (>60) BUN/Creatinine Ratio (8-20) Glucose (70-100) mg/dL Lactic Acid 1.9 (0.5-2.0) mmol/L Calcium (8.6-10.3) mg/dL Total Bilirubin (0.2-1.0) mg/dL AST (13-39) U/L ALT (7-52) U/L Alkaline Phosphatase (34-104) U/L Troponin I (<0.04) ng/mL C-Reactive Protein (<8.01) mg/L Total Protein (6.4-8.9) g/dL Albumin (3.2-5.2) g/dL Globulin (2-4) g/dL Albumin/Globulin Ratio (1-3) Microbiology and Other Data: Microbiology 03/21/19 10:08 Nasal Screen MRSA (PCR) - Final Nasal Mrsa Detected 03/18/19 22:05 Aerobic Blood Culture - Preliminary Blood Venous No Growth Day 2 Anaerobic Blood Culture - Preliminary No Growth Day 2 03/18/19 22:05 Aerobic Blood Culture - Preliminary Blood Venous No Growth Day 2 Anaerobic Blood Culture - Preliminary No Growth Day 2 03/18/19 23:18 Urine Culture - Final Urine No Growth (<1,000 CFU/mL) 03/19/19 12:15 Legionella Urinary Antigen - Final Urine Positive Legionella Antigen Streptococcus pneumoniae Ag Screen - Final Negative S. pneumo Antigen Assess/Plan/Problems-Billing 63 year old woman with history of nephrolithiasis, HTN, and tobacco use admitted on 03/19 with back pain and found to have RLL pneumonia on the CT abd/ pelvis and urine legionella antigen positive, in ICU from 03/21-03/24 for hypoxic respiratory failure requiring Vapotherm, s/p thoracocentesis yesterday with only scant fluid obtained. Her course complicated with possible early shingles and anasarca due to malnutrition. - Patient Problems (1) Acute hypoxemic respiratory failure Current Visit: Yes Status: Acute Code(s): J96.01 - ACUTE RESPIRATORY FAILURE WITH HYPOXIA SNOMED Code(s): 578124306 Comment: Legionella pneumonia with right side pleural effusion + MRSA in sputum day 7 azithro; day 4 vanc requiring ICU stay 03/20- for high flow nasal cannula thoracocentesis 03/24/2019 only scant fluid obtained; LDH/total protein are pending continue abx for now, wean down O2 may be some component of pulmonary edema related to hypoalbuminemia which is unlikely to respond to lasix, but low dose po lasix started yesterday; add daily weights (2) Legionella pneumonia Current Visit: Yes Status: Acute Code(s): A48.1 - LEGIONNAIRES' DISEASE SNOMED Code(s): 071203181 Comment: today is day 7 of azithromycin will treat for 10 days given the severity of her pneumonia (3) Atrial fibrillation Current Visit: Yes Status: Acute Code(s): I48.91 - UNSPECIFIED ATRIAL FIBRILLATION SNOMED Code(s): 07214486 Comment: initially with RVR, now resolved this is a new diagnosis for her TTE no valvular changes switch metoprolol to xl today; good rate control on therapeutic lovenox for [id number] of 2 for now; can be switched to eliquis or xarelto prior to discharge (4) Hypokalemia Current Visit: Yes Status: Acute Code(s): E87.6 - HYPOKALEMIA SNOMED Code( s): 35018640 Comment: maybe related to alkalosis? intake is adequate, nothing to suggest RTA replete aggressively today and recheck this afternoon (5) Anasarca Current Visit: Yes Status: Acute Code(s): R60.1 - GENERALIZED EDEMA SNOMED Code(s): 332854700 Comment: with marked hypoalbuminemia urine last week had 3+ protein... will quantify urine protein to eval for nephrotic syndrome; if positive will need more extensive work up (6) Shingles Current Visit: Yes Status: Acute Code(s): B02.9 - ZOSTER WITHOUT COMPLICATIONS SNOMED Code(s): 3297765 Comment: new onset of right burning sensation in dermatone distribution, concerning for shingles although no vesicles seen now. Start acyclovir 7 days. (7) COPD exacerbation Current Visit: Yes Status: Acute Code(s): J44.1 - CHRONIC OBSTRUCTIVE PULMONARY DISEASE W (ACUTE) EXACERBATION SNOMED Code(s): 075857858 Comment: complicated with acute COPD exacerbation with ongoing pneumonia completed 3 days of pred burst (8) Nicotine dependence Current Visit: Yes Status: Acute Code(s): F17.200 - NICOTINE DEPENDENCE, UNSPECIFIED, UNCOMPLICATED SNOMED Code(s): 24524287 Comment: on nicotine patch with plans to abstain correction (9) DVT prophylaxis Current Visit: Yes Status: Acute Code(s): Z29.9 - ENCOUNTER FOR PROPHYLACTIC MEASURES, UNSPECIFIED SNOMED Code(s): 010294344 Comment: therapeutic lovenox Status and Disposition: Inpatient Medicine for acute hypoxic respiratory failure, hypokalemia, hypoalbuminemia.
[2019-03-26] MEDS ORDERED: Magnesium Oxide TAB* 400 MG PO ONE (08:39)
[2019-03-26] MEDS ORDERED: Potassium Chloride* LIQUID 20 MEQ/15 ML UDC PO ONE (08:39)
[2019-03-26] MEDS: Albuterol/Ipratropium NEB.SOL* Albuterol 2.5 MG/Ipratropium 0.5 MG 3 ML INH PRN ×2 (08:55→22:56)
[2019-03-26] MEDS: KCL 20 MEQ/100 ML IVPREMIX* 20 MEQ/100 ML BAG IV SCH ×3 (09:47→15:43)
[2019-03-26] MEDS: Insulin LISPRO* 1 UNITS UNIT SUBCUT SCH ×4 (09:47→22:56)
[2019-03-26] MEDS: Gabapentin CAP(*) 100 MG PO SCH ×2 (09:53→21:04)
[2019-03-26] MEDS: Furosemide TAB* 20 MG PO SCH (09:54)
[2019-03-26] MEDS: Metoprolol Succinate XL TAB* 50 MG PO SCH (09:54)
[2019-03-26] MEDS: Amiodarone TAB* 200 MG PO SCH (09:54)
[2019-03-26] MEDS: Vancomycin(*) 1,000 MG in NS 0.9% 250 ML* 250 ML IVPB SCH ×2 (13:19→20:30)
[2019-03-26 18:52] LABS: BUN/Creatinine Ratio 10.8 (8-20); Calcium 7.6 mg/dL (8.6-10.3); EGFR African American 96.2 (>60); EGFR Non-African American 79.5 (>60); Magnesium 2.3 mg/dL (1.9-2.7); Potassium 2.8 mmol/L (3.5-5.0)
[2019-03-26] MEDS: Atorvastatin* 10 MG TAB PO SCH (21:05)
[2019-03-27 00:10] LABS: Urine Creatinine Concentration 26.75 mg/dL
[2019-03-27] MEDS: Azithromycin 500 mg/250 ml NS 500 MG/250 ML BAG IVPB SCH ×2 (00:13→23:52)
[2019-03-27] MEDS: KCL 20 MEQ/100 ML IVPREMIX* 20 MEQ/100 ML BAG IV SCH ×3 (00:14→04:30)
[2019-03-27] MEDS: VICKS VAPO RUB TOPICAL SCH ×3 (02:14→18:12)
[2019-03-27] MEDS: Vancomycin(*) 1,000 MG in NS 0.9% 250 ML* 250 ML IVPB SCH ×3 (04:00→19:59)
[2019-03-27] MEDS: Enoxaparin(*) 60 MG/0.6 ML SYR SUBCUT SCH ×2 (06:00→18:12)
[2019-03-27] MEDS: Acyclovir* 400 MG TAB PO SCH ×5 (06:00→21:16)
[2019-03-27] MEDS: Albuterol/Ipratropium NEB.SOL* Albuterol 2.5 MG/Ipratropium 0.5 MG 3 ML INH PRN (06:33)
[2019-03-27 06:48] LABS: ABS Eosinophils 0.1 10^3/ul (0-0.6); ABS Lymphocytes 0.6 10^3/ul (1.0-4.8); ABS Monocytes 0.8 10^3/ul (0-0.8); ABS Neutrophils 6.7 10^3/ul (1.5-7.7); Eosinophil % 1.4 %; Hematocrit 29 % (35-47); Hemoglobin 10.1 g/dL (12.0-16.0); Lymphocyte % 7.4 %; Mean Corpuscular HGB Conc 35 g/dL (31-36); Mean Corpuscular Hemoglobin 28 pg (27-31); Mean Corpuscular Volume 81 fL (80-97); Mean Platelet Volume 7.8 fL (7.4-10.4); Platelet Count 350 10^3/uL (150-450); Red Blood Count 3.61 10^6 /uL (3.70-4.87); Red Cell Distribution Width 14 % (10-15); White Blood Count 8.3 10^3/uL (3.5-10.8)
[2019-03-27 06:54] LABS: BUN/Creatinine Ratio 8.2 (8-20); Calcium 7.5 mg/dL (8.6-10.3); EGFR African American 97.7 (>60); EGFR Non-African American 80.8 (>60); Phosphorus 1.7 mg/dL (2.5-5.0); Potassium 3.1 mmol/L (3.5-5.0)
[2019-03-27] MEDS ORDERED: Furosemide IV* 10 MG/ML VIAL (40 MG) IV ONE (06:57)
[2019-03-27] MEDS ORDERED: Potassium Phosphate IV* 15 MMOLE in NS 0.9% 250 ML* 250 ML IVPB ONE (07:54)
[2019-03-27] MEDS ORDERED: Potassium Chlor TAB* 20 MEQ TAB.ER PO SCH (08:00)
[2019-03-27] MEDS: Insulin LISPRO* 1 UNITS UNIT SUBCUT SCH ×4 (08:18→21:15)
[2019-03-27] MEDS: KCL 10 MEQ/50 ML IVPREMIX* 10 MEQ/50 ML BAG IV SCH ×2 (08:18→10:18)
[2019-03-27] MEDS: Metoprolol Succinate XL TAB* 50 MG PO SCH (08:19)
[2019-03-27] MEDS: Gabapentin CAP(*) 100 MG PO SCH ×2 (08:21→21:16)
[2019-03-27] MEDS: Amiodarone TAB* 200 MG PO SCH (08:21)
[2019-03-27] MEDS: Furosemide TAB* 20 MG PO SCH (08:21)
--- NOTE | 2019-03-27 09:03 | PN ---
Hospitalist Progress Note Date of Service: 03/27/19 Subjective- pt breathing is better w new o2 canula, bilateral flank pain on palpation, swelling and edema on legs (1+), not eating cause no appetite, gained 19lbs in last 2 days overnight event of SOB(switched to 3mL O2 and improved) Objective- vitals temp-97.7 heart rate-92 resp. rate-15 02 sat-96 o2 flow rate-3 BP-152/70 general-welll apeearing heart-s1, s2 reg rate rhythm -lungs-bilateral lungs inspiratory rhonchi -abdomen soft, normal, nondistended -extremities- BL legs 1+ edema up to thighs and abdomen swelling -skin -Bilateral back flank pain on palpation and pain everywhere on back (from lying down) labs- rbs-3.61 hgb-10.1 hct-29 abs neutrophils- .6 k-3.1 CO2-34 Glucose- 158 Ca-7.5 Phosphorus-1.7 Assessment/Plan- 63 year old woman with history of nephrolithiasis, HTN,, DIABETES, OSTEOPOROSIS , MULTIPLE STENTS and tobacco use admitted on 03/19 with back pain and found to have RLL pneumonia on the CT abd/pelvis and urine legionella antigen positive, in ICU from 03/21-03/24 for hypoxic respiratory failure requiring Vapotherm, s/p thoracocentesis yesterday with only scant fluid obtained. Her course complicated with possible early shingles and anasarca due to malnutrition. Acute hypoxemic respiratory failure, Legionella pneumonia with right side pleural effusion + MRSA in sputum day 7 azithro(500mg in 250mls/hr @250mls/hr IV); day 4 vanc required ICU stay 03/20- for high flow nasal cannula thoracocentesis 03/24/2019 only scant fluid obtained; LDH/total protein are pending continue abx for now, wean down O2 may be some component of pulmonary edema related to hypoalbuminemia which is unlikely to respond to lasix, but low dose po lasix(20mg PO daily)_ started yesterday; add daily weights (2) Legionella pneumonia today is day 7 of azithromycin 500 mg in 250 mls @250 mls/hr will treat for 10 days given the severity of her pneumonia (3) Atrial fibrillation. This is a new diagnosis for her TTE no valvular changes switch metoprolol (50mg PO daily)good rate control on therapeutic lovenox(enoxapaprin 60mg subcut) for acaes3liqh of 2 for now; can be switched to eliquis or xarelto prior to discharge (4) Hypokalemia maybe related to alkalosis? replete aggressively today and recheck this afternoon -- K Cl 20 meq PO daily , K P 255mls/hr @42 mls/hr (5) Anasarca with marked hypoalbuminemia -urine last week had 3+ protein... will quantify urine protein to eval for nephrotic syndrome; if positive will need more extensive work up (6) Shingles -new onset of right burning sensation in dermatone distribution, concerning for shingles although no vesicles seen now. Start acyclovir (800mg PO 5x daily)7 days. (7) COPD exacerbation -complicated with acute COPD exacerbation with ongoing pneumonia completed 3 days of prednisone burst (8) Nicotine dependence - on nicotine patch with plans to abstain fpc (9) DVT prophylaxis -therapeutic enoxaparin 60mg subcut
[2019-03-27] MEDS: Potassium Chloride* LIQUID 20 MEQ/15 ML UDC PO SCH (10:17)
--- NOTE | 2019-03-27 11:08 | PN ---
Progress Note - Progress Note Date of Service: 03/27/19 SOAP: Subjective: CC: Pneumonia HPI: Ms. Gary is a 63 yo female with PMH significant for DM2, HTN, HLD, and osteoporosis; who presented to the hospital for fevers and was admitted for pneumonia. Denies fever, chills, nausea, vomiting, or diarrhea. Occasional cough that is non productive. She states that her shortness of breath is improving, has been working on weaning O2. She states that she is starting to feel better. Over the weekend she developed a burning sensation on the left side , it was felt to be shingles and she was started on Acyclovir. She denies any rash or open areas. Objective: Vital Signs - 8 hr 03/27/19 03/27/19 03/27/19 03:15 06:34 07:51 Temperature 97.7 F Pulse Rate 100 92 Respiratory 20 15 Rate Blood Pressure 156/69 152/70 (mmHg) O2 Sat by Pulse 94 96 Oximetry Physical Exam: General: NAD, sitting up in bed Neurological: Alert and Oriented HEENT: Moist MM, no thrush Cardiovascular: Heart rate regular. 1+ bilateral LE edema Respiratory: Lung sounds clear, diminished Abdominal: Bowel sounds present; ABD soft, non tender and non distended Skin: No rash. There are 3 small macules on the left posterior side below her scapula that are in a line, about 0.3 cm in diameter that are slightly darker than her skin color. No vesicles. She reports pain is in this location. Laboratory Results - last 24 hr 03/26/19 03/26/19 03/26/19 18:25 20:57 23:00 Sodium 140 Potassium 2.8 L Chloride 100 L Carbon Dioxide 34 H Anion Gap 6 BUN 8 Creatinine 0.74 Est GFR ( Amer) 96.2 Est GFR (Non-Af Amer) 79.5 BUN/Creatinine Ratio 10.8 Glucose 253 H POC Glucose (mg/dL) 224 H Calcium 7.6 L Magnesium 2.3 Ur Creatinine Concen 26.75 Ur Total Protein Conc 18 03/27/19 03/27/19 03/27/19 06:20 06:20 07:42 WBC 8.3 RBC 3.61 L Hgb 10.1 L Hct 29 L MCV 81 MCH 28 MCHC 35 RDW 14 Plt Count 350 MPV 7.8 Neut % (Auto) 81.2 Lymph % (Auto) 7.4 [place] % (Auto) 9.7 Eos % (Auto) 1.4 Baso % (Auto) 0.3 Absolute Neuts (auto) 6.7 Absolute Lymphs (auto) 0.6 L Absolute Monos (auto) 0.8 Absolute Eos (auto) 0.1 Absolute Basos (auto) 0.0 Absolute Nucleated RBC 0.0 Nucleated RBC % 0.0 Sodium 143 Potassium 3.1 L Chloride 104 Carbon Dioxide 34 H Anion Gap 5 BUN 6 Creatinine 0.73 Est GFR ( Amer) 97.7 Est GFR (Non-Af Amer) 80.8 BUN/Creatinine Ratio 8.2 Glucose 158 H POC Glucose (mg/dL) 242 H Calcium 7.5 L Phosphorus 1.7 L Magnesium 2.0 Microbiology 03/24/19 14:30 Gram Stain - Final Pleural Fluid Body Fluid Culture - Preliminary No Growth Day 3 03/18/19 22:05 Aerobic Blood Culture - Final Blood Venous No Growth Day 5 Anaerobic Blood Culture - Final No Growth Day 5 03/18/19 22:05 Aerobic Blood Culture - Final Blood Venous No Growth Day 5 Anaerobic Blood Culture - Final No Growth Day 5 03/21/19 15:58 Gram Stain - Final No Source Provided Sputum Culture - Final MRSA Normal Dean 03/21/19 10:08 Nasal Screen MRSA (PCR) - Final Nasal Mrsa Detected 03/18/19 23:18 Urine Culture - Final Urine No Growth (<1,000 CFU/mL) 03/19/19 12:15 Legionella Urinary Antigen - Final Urine Positive Legionella Antigen Streptococcus pneumoniae Ag Screen - Final Negative S. pneumo Antigen Assessment: 1. Community Acquired PNA, Legionella. Blood cultures with no growth to date. Urine antigen for Legionella positive. Sputum culture with normal dean and MRSA. She was not improving on legionella treatment alone, and ABX were broadened. Has been on Azithromycin and Vancomycin. Initial leukocytosis has resolved. Afebrile since 03/23. Continues to have mild tachycardia. 2. Acute hypoxic respiratory failure. Improving, vapotherm weaned and now on 2.5 L via NC. She reports that she was down to 1.5 L last night but developed shortness of breath after someone entered her room wearing perfume. 3. Left side pain. She was started on Acyclovir for possible Herpes Zoster over the weekend, no vesicles were seen. There is no rash or vesicles, but 3 small macules as described above. Pain is improving since starting the Acyclovir. This may represent a Herpes Zoster in the setting of stress from PNA. 4. DM2. Plan: Continue Vancomycin (day 5) and Azithromycin (day 9). Will plan for a 10 day course of Azithromycin and a 5 day course of Vancomycin. Continue Acyclovir for total of 7 days (day 3/7)
--- NOTE | 2019-03-27 13:56 | PN ---
Subjective Date of Service: 03/27/19 Interval History: Patient felt improvement in breathing status. Still had right back pain along the rib, on and off. No rashes. weight gain 19lb since admission acc to patient Objective Active Medications: Acetaminophen (Tylenol Tab*) 650 mg PO Q6H PRN PRN Reason: PAIN - MILD Acyclovir (Zovirax Tab*) 800 mg PO FIVE TIMES DAILY [facility] Stop: 04/01/19 09:59 Last Admin: 03/27/19 12:35 Dose: 800 mg Albuterol/Ipratropium (Duoneb (Albuterol 2.5 Mg/Ipratropium 0.5 Mg)) 1 neb INH [id number] AWAKE PRN PRN Reason: SOB/WHEEZING Last Admin: 03/27/19 06:33 Dose: 1 neb Amiodarone HCl (Cordarone Tab*) 200 mg PO DAILY [facility] Last Admin: 03/27/19 08:21 Dose: 200 mg Atorvastatin Calcium (Lipitor*) 10 mg PO BEDTIME [facility] Last Admin: 03/26/19 21:05 Dose: 10 mg Dextrose (Dextrose 50% Vial 50 Ml*) 25 ml IV PUSH .FOR FS < 60 - SS PRN PRN Reason: FS < 60 Enoxaparin Sodium (Lovenox(*)) 60 mg SUBCUT 0600,1800 [facility] Last Admin: 03/27/19 06:00 Dose: 60 mg Furosemide (Lasix Tab*) 20 mg PO DAILY [facility] Last Admin: 03/27/19 08:21 Dose: 20 mg Gabapentin (Neurontin Cap(*)) 100 mg PO BID [facility] Last Admin: 03/27/19 08:21 Dose: 100 mg Azithromycin (Zithromax 500 Mg/250 Ml) 500 mg in 250 mls @ 250 mls/hr IVPB Q24H [facility] Last Admin: 03/27/19 00:13 Dose: 250 mls/hr Vancomycin HCl 1,000 mg/ (Sodium Chloride) 250 mls @ 166.667 mls/hr IVPB Q8H [facility] Last Admin: 03/27/19 12:35 Dose: 166.667 mls/hr Potassium Phosphate 15 mmole/ (Sodium Chloride) 255 mls @ 42 mls/hr IVPB ONCE ONE Stop: 03/27/19 13:58 Last Admin: 03/27/19 10:18 Dose: 42 mls/hr Insulin Human Lispro (Humalog*) 0 units SUBCUT ACHS [facility]; Protocol Last Admin: 03/27/19 12:35 Dose: 6 unit Metoprolol Succinate (Toprol Xl Tab*) 50 mg PO DAILY [facility] Last Admin: 03/27/19 08:19 Dose: 50 mg Vicks Vapo Rub 1 dose TOPICAL Q8H [facility] Last Admin: 03/27/19 10:18 Dose: Not Given Pharmacy Consult (Vancomycin Per Pharmacy*) 1 note FOLLOW UP .VANC PER PHARMACY [facility]; Protocol Pharmacy Profile Note (Vancomycin Trough Check) 1 note FOLLOW UP ONCE ONE Stop: 03/28/19 11:31 Potassium Chloride (Potassium Chloride Liquid) 20 meq PO DAILY [facility] Last Admin: 03/27/19 10:17 Dose: 20 meq Vital Signs - 8 hr 03/27/19 03/27/19 03/27/19 06:34 07:51 08:00 Pulse Rate 92 Respiratory 15 16 Rate Blood Pressure 152/70 (mmHg) O2 Sat by Pulse 96 Oximetry 03/27/19 03/27/19 08:21 12:36 Pulse Rate Respiratory 16 16 Rate Blood Pressure (mmHg) O2 Sat by Pulse Oximetry Oxygen Devices in Use Now: High Flow Nasal Cannula Exam: Gen: comfortable, not in distress HEENT: normal Lungs: right side decreased air entry (improving); Cardiac: irregular rhythm , HR in 100s Abdomen: distended, soft, non tender. Skin: no rashes seen Extremities: No cyanosis. pitting edema on leg, sacral edema Result Diagrams: 03/27/19 06:20 03/27/19 06:20 Additional Lab and Data: Lab Results 03/18/19 03/18/19 03/18/19 Range/Units 22:05 22:05 22:05 WBC 12.2 H (3.5-10.8) 10^3/uL RBC 5.11 H (3.70-4.87) 10^6 /uL Hgb 14.0 (12.0-16.0) g/dL Hct 42 (35-47) % MCV 82 (80-97) fL MCH 27 (27-31) pg MCHC 33 (31-36) g/dL RDW 14 (10-15) % Plt Count 164 (150-450) 10^3/uL MPV 8.7 (7.4-10.4) fL Neut % (Auto) 91.2 % Lymph % (Auto) 4.2 % [place] % (Auto) 4.2 % Eos % (Auto) 0.0 % Baso % (Auto) 0.4 % Absolute Neuts (auto) 11.1 H (1.5-7.7) 10^3/ul Absolute Lymphs (auto) 0.5 L (1.0-4.8) 10^3/ul Absolute Monos (auto) 0.5 (0-0.8) 10^3/ul Absolute Eos (auto) 0.0 (0-0.6) 10^3/ul Absolute Basos (auto) 0.1 (0-0.2) 10^3/ul Absolute Nucleated RBC 0.0 10^3/ul Nucleated RBC % 0.0 INR (Anticoag Therapy) 1.26 H (0.82-1.09) Sodium 125 L (135-145) mmol/L Potassium 3.8 (3.5-5.0) mmol/L Chloride 95 L (101-111) mmol/L Carbon Dioxide 21 L (22-32) mmol/L Anion Gap 9 (2-11) mmol/L BUN 15 (6-24) mg/dL Creatinine 0.80 (0.51-0.95) mg/dL Est GFR ( Amer) 87.9 (>60) Est GFR (Non-Af Amer) 72.7 (>60) BUN/Creatinine Ratio 18.8 (8-20) Glucose 287 H (70-100) mg/dL Lactic Acid (0.5-2.0) mmol/L Calcium 9.1 (8.6-10.3) mg/dL Total Bilirubin 0.40 (0.2-1.0) mg/dL AST 26 (13-39) U/L ALT 21 (7-52) U/L Alkaline Phosphatase 63 (34-104) U/L Troponin I 0.10 H* (<0.04) ng/mL C-Reactive Protein 399.05 H (<8.01) mg/L Total Protein 7.1 (6.4-8.9) g/dL Albumin 3.6 (3.2-5.2) g/dL Globulin 3.5 (2-4) g/dL Albumin/Globulin Ratio 1.0 (1-3) 09/21/19 Range/Units 22:05 WBC (3.5-10.8) 10^3/uL RBC (3.70-4.87) 10^6 /uL Hgb (12.0-16.0) g/dL Hct (35-47) % MCV (80-97) fL MCH (27-31) pg MCHC (31-36) g/dL RDW (10-15) % Plt Count (150-450) 10^3/uL MPV (7.4-10.4) fL Neut % (Auto) % Lymph % (Auto) % [place] % (Auto) % Eos % (Auto) % Baso % (Auto) % Absolute Neuts (auto) (1.5-7.7) 10^3/ul Absolute Lymphs (auto) (1.0-4.8) 10^3/ul Absolute Monos (auto) (0-0.8) 10^3/ul Absolute Eos (auto) (0-0.6) 10^3/ul Absolute Basos (auto) (0-0.2) 10^3/ul Absolute Nucleated RBC 10^3/ul Nucleated RBC % INR (Anticoag Therapy) (0.82-1.09) Sodium (135-145) mmol/L Potassium (3.5-5.0) mmol/L Chloride (101-111) mmol/L Carbon Dioxide (22-32) mmol/L Anion Gap (2-11) mmol/L BUN (6-24) mg/dL Creatinine (0.51-0.95) mg/dL Est GFR ( Amer) (>60) Est GFR (Non-Af Amer) (>60) BUN/Creatinine Ratio (8-20) Glucose (70-100) mg/dL Lactic Acid 1.9 (0.5-2.0) mmol/L Calcium (8.6-10.3) mg/dL Total Bilirubin (0.2-1.0) mg/dL AST (13-39) U/L ALT (7-52) U/L Alkaline Phosphatase (34-104) U/L Troponin I (<0.04) ng/mL C-Reactive Protein (<8.01) mg/L Total Protein (6.4-8.9) g/dL Albumin (3.2-5.2) g/dL Globulin (2-4) g/dL Albumin/Globulin Ratio (1-3) Microbiology and Other Data: Microbiology 03/21/19 10:08 Nasal Screen MRSA (PCR) - Final Nasal Mrsa Detected 03/18/19 22:05 Aerobic Blood Culture - Preliminary Blood Venous No Growth Day 2 Anaerobic Blood Culture - Preliminary No Growth Day 2 03/18/19 22:05 Aerobic Blood Culture - Preliminary Blood Venous No Growth Day 2 Anaerobic Blood Culture - Preliminary No Growth Day 2 03/18/19 23:18 Urine Culture - Final Urine No Growth (<1,000 CFU/mL) 03/19/19 12:15 Legionella Urinary Antigen - Final Urine Positive Legionella Antigen Streptococcus pneumoniae Ag Screen - Final Negative S. pneumo Antigen Assess/Plan/Problems-Billing 63 year old woman with history of nephrolithiasis, HTN, and tobacco use admitted on 03/19 with back pain and found to have RLL pneumonia on the CT abd/ pelvis and urine legionella antigen positive, in ICU from 03/21-03/24 for hypoxic respiratory failure requiring Vapotherm, s/p thoracocentesis yesterday with only scant fluid obtained. Her course complicated with possible early shingles and anasarca due to malnutrition. - Patient Problems (1) Acute hypoxemic respiratory failure Current Visit: Yes Status: Acute Code(s): J96.01 - ACUTE RESPIRATORY FAILURE WITH HYPOXIA SNOMED Code(s): 599126753 Comment: Legionella pneumonia with right side pleural effusion + MRSA in sputum day 9 azithro; day 5 vanc requiring ICU stay 03/20- for high flow nasal cannula thoracocentesis 03/24/2019 only scant fluid obtained; LDH/total protein still pending continue abx for now (complete azithromycin tomorrow, vanco completed today), wean down O2 may be some component of pulmonary edema related to hypoalbuminemia which is unlikely to respond to lasix, but low dose po lasix started yesterday; daily weights (2) Atrial fibrillation Current Visit: Yes Status: Acute Code(s): I48.91 - UNSPECIFIED ATRIAL FIBRILLATION SNOMED Code(s): 16665522 Comment: initially with RVR, now resolved this is a new diagnosis for her TTE no valvular changes metoprolol xl, consider up dose if HR still not well controlled on therapeutic lovenox for [id number] of 2 for now; can be switched to eliquis or xarelto prior to discharge (3) Shingles Current Visit: Yes Status: Acute Code(s): B02.9 - ZOSTER WITHOUT COMPLICATIONS SNOMED Code(s): 4927192 Comment: new onset of right burning sensation in dermatone distribution, concerning for shingles although no vesicles seen now. Start acyclovir 7 days. (4) COPD exacerbation Current Visit: Yes Status: Acute Code(s): J44.1 - CHRONIC OBSTRUCTIVE PULMONARY DISEASE W (ACUTE) EXACERBATION SNOMED Code(s): 400728214 Comment: complicated with acute COPD exacerbation with ongoing pneumonia completed 3 days of pred burst (5) Nicotine dependence Current Visit: Yes Status: Acute Code(s): F17.200 - NICOTINE DEPENDENCE, UNSPECIFIED, UNCOMPLICATED SNOMED Code(s): 43774254 Comment: on nicotine patch with plans to abstain [facility] (6) DVT prophylaxis Current Visit: Yes Status: Acute Code(s): Z29.9 - ENCOUNTER FOR PROPHYLACTIC MEASURES, UNSPECIFIED SNOMED Code(s): 688284144 Comment: therapeutic lovenox (7) Anasarca Current Visit: Yes Status: Acute Code(s): R60.1 - GENERALIZED EDEMA SNOMED Code(s): 638598598 Comment: with marked hypoalbuminemia urine protein 3+ last week random UPCR 0.6 Status and Disposition: Inpatient Medicine for acute hypoxic respiratory failure, hypokalemia, hypoalbuminemia. Attestation Documenting Resident: Jessenia Nixon Supervising Physician: Parish Lopez Attending/Supervising Physician Comment: Agree with plan as outline din today's note by Dr. Nixon unless indicated here. Note of correction - thoracentesis performed 03/24 Legionella PNA improving on azithromycin. MRSA in sputum receiving vancomycin but suspect legionella as source Hypoalbuminemia - unclear etiology. spot pritein/creatinine elevated but far less than 3g/day. Check 24hr collection. Associated with multiple electrolyte abnormalities and metabolic acidosis. Repeat check tomorrow. New afib - rate controlled. Transition to PO NOAC tomorrow Attestation: This service has been performed in part by a resident under the direction of a teaching physician.I, Parish Lopez, performed the service, or was physically present during the critical, or rodgers portions of the service, furnished by the resident. I participated in the management of the patient.
[2019-03-27 14:11] LABS: Lactate Dehydrogenase, BF 1230 U/L
[2019-03-27 16:54] LABS: Fluid Type, Protein, Total PLEURAL
[2019-03-27] MEDS: Atorvastatin* 10 MG TAB PO SCH (21:15)
[2019-03-28] MEDS: VICKS VAPO RUB TOPICAL SCH ×3 (02:00→17:51)
[2019-03-28] MEDS: Vancomycin(*) 1,000 MG in NS 0.9% 250 ML* 250 ML IVPB SCH ×2 (04:05→13:38)
[2019-03-28] MEDS: Acyclovir* 400 MG TAB PO SCH ×3 (05:29→16:21)
[2019-03-28] MEDS: Enoxaparin(*) 60 MG/0.6 ML SYR SUBCUT SCH (05:29)
[2019-03-28 08:17] LABS: ABS Basophils 0.1 10^3/ul (0-0.2); ABS Eosinophils 0.1 10^3/ul (0-0.6); ABS Lymphocytes 0.7 10^3/ul (1.0-4.8); ABS Monocytes 1.1 10^3/ul (0-0.8); ABS Neutrophils 7.8 10^3/ul (1.5-7.7); Eosinophil % 1.4 %; Hematocrit 31 % (35-47); Hemoglobin 10.5 g/dL (12.0-16.0); Mean Corpuscular HGB Conc 34 g/dL (31-36); Mean Corpuscular Hemoglobin 28 pg (27-31); Mean Corpuscular Volume 81 fL (80-97); Mean Platelet Volume 7.5 fL (7.4-10.4); Platelet Count 382 10^3/uL (150-450); Red Blood Count 3.82 10^6 /uL (3.70-4.87); Red Cell Distribution Width 14 % (10-15); White Blood Count 9.8 10^3/uL (3.5-10.8)
[2019-03-28] MEDS: Metoprolol Succinate XL TAB* 50 MG PO SCH (08:26)
[2019-03-28] MEDS: Amiodarone TAB* 200 MG PO SCH (08:27)
[2019-03-28] MEDS: Insulin LISPRO* 1 UNITS UNIT SUBCUT SCH ×3 (08:28→17:09)
[2019-03-28] MEDS: Furosemide TAB* 20 MG PO SCH (08:28)
[2019-03-28] MEDS: Gabapentin CAP(*) 100 MG PO SCH ×2 (08:28→20:12)
[2019-03-28] MEDS: Potassium Chloride* LIQUID 20 MEQ/15 ML UDC PO SCH ×3 (08:28→20:12)
[2019-03-28 08:34] LABS: BUN/Creatinine Ratio 6.5 (8-20); Calcium 7.9 mg/dL (8.6-10.3); EGFR African American 73.9 (>60); EGFR Non-African American 61.1 (>60); Phosphorus 2.9 mg/dL (2.5-5.0); Potassium 2.8 mmol/L (3.5-5.0)
[2019-03-28] MEDS ORDERED: glipiZIDE TAB* 5 MG PO SCH (09:00)
--- NOTE | 2019-03-28 09:10 | PN ---
Hospitalist Progress Note Date of Service: 03/28/19 Subjective- pt breathing is better w new o2 canula, swelling and edema on legs has improved. Lost 2 lbs since yesterday overnight event of pt looking pale. Pt was on room air w/ O2 sat. of 87%. O2 on 2.5L and O2 increased to 94% Objective- vitals temp-98.5 heart rate-88 resp. rate-17 02 sat-96 o2 flow rate-2.5 BP-159/80 general-welll apeearing heart-s1, s2 reg rate rhythm -lungs-bilateral lungs inspiratory rhonchi -abdomen soft, normal, nondistended -extremities- BL legs 1+ edema up to thighs and abdomen swelling(improved swelling in legs) -skin -Bilateral back flank pain on palpation and pain everywhere on back (from lying down) labs- hgb-10.5 hct-31 abs neutrophils- 7.8 abs lymphocytes-0.7 abs monocytes- 1.1 Na-146 k-2.8 CO2-39 bun-6 creat-.93 BUN/creat-6.5 Glucose- 132 Ca-7.9 (improved) Phosphorus (normal now 2.9) Assessment/Plan- 63 year old woman with history of nephrolithiasis,HTN, Diabetes,osteoporosis, multiple past stents and tobacco use admitted on 03/19 with back pain and found to have RLL pneumonia on the CT abd/pelvis and urine legionella antigen positive , in ICU from 03/21-03/24 for hypoxic respiratory failure requiring Vapotherm, s/ p thoracocentesis yesterday with only scant fluid obtained. Her course complicated with possible early shingles and anasarca due to malnutrition. (1)Acute hypoxemic respiratory failure, Legionella pneumonia with right side pleural effusion + MRSA in sputum . Azithromycin completed. day 10 azithro(500mg in 250mls/hr @250mls/hr IV); day 5 vancomycin 1,000 mg. 250 mls @166.667 mls/hr IV Q8hrs required ICU stay 03/20- for high flow nasal cannula thoracocentesis 03/24/2019 only scant fluid obtained; LDH/total protein are pending continue abx for now, wean down O2 may be some component of pulmonary edema related to hypoalbuminemia which is unlikely to respond to lasix, but low dose po lasix(20mg PO daily)_ started yesterday; add daily weights (2) Legionella pneumonia Azithromycin completed. Today is day 10 of azithromycin 500 mg in 250 mls @250 mls/hr (3) Atrial fibrillation. This is a new diagnosis for her TTE no valvular changes switch metoprolol (75mg PO daily) on Rivaroxaban 20mg PO QPM for tnwee3kgcl of 2 for now; can be switched to eliquis or xarelto prior to discharge (4) Hypokalemia maybe related to alkalosis? replete aggressively today and recheck this afternoon -- K Cl 20 meq PO daily (5) Anasarca with marked hypoalbuminemia -urine last week had 3+ protein. Urine 2 days ago has albumin of 2.0 (low) -Furosemide 20mg PO daily (6) Shingles -new onset of right burning sensation in dermatone distribution, concerning for shingles although no vesicles seen now. -Acyclovir (800mg PO 5x daily)7 days. -Gabapentin 100mg PO BID(for pain) (7) COPD exacerbation -complicated with acute COPD exacerbation with ongoing pneumonia completed 3 days of prednisone burst (8) Nicotine dependence - on nicotine patch with plans to abstain care home (9)Diabetes - lispro sliding scale -Glipizide 5 mg PO daily (10) DVT prophylaxis - Rivaroxaban 20mg PO QPM
[2019-03-28] MEDS: Losartan TAB* 25 MG PO SCH (09:23)
[2019-03-28] MEDS ORDERED: Potassium Chloride* LIQUID 20 MEQ/15 ML UDC PO ONE (10:46)
[2019-03-28] MEDS: Metoprolol Succinate XL TAB* 25 MG PO SCH (11:29)
[2019-03-28] MEDS: KCL 10 MEQ/50 ML IVPREMIX* 10 MEQ/50 ML BAG IV SCH ×3 (11:29→16:20)
[2019-03-28] MEDS ORDERED: Vancomycin Trough Check NOTE FOLLOW UP ONE (11:30)
--- NOTE | 2019-03-28 15:03 | PN ---
Subjective Date of Service: 03/28/19 Interval History: Continues to wean down O2 to 2.5L/min Swelling improved with diuretics. No complains of chest pain, SOB. less cough. Objective Active Medications: Acetaminophen (Tylenol Tab*) 650 mg PO Q6H PRN PRN Reason: PAIN - MILD Acyclovir (Zovirax Tab*) 800 mg PO FIVE TIMES DAILY [facility] Stop: 04/01/19 09:59 Last Admin: 03/28/19 08:27 Dose: 800 mg Albuterol/Ipratropium (Duoneb (Albuterol 2.5 Mg/Ipratropium 0.5 Mg)) 1 neb INH RT.[id number] AWAKE PRN PRN Reason: SOB/WHEEZING Last Admin: 03/27/19 06:33 Dose: 1 neb Amiodarone HCl (Cordarone Tab*) 200 mg PO DAILY [facility] Last Admin: 03/28/19 08:27 Dose: 200 mg Atorvastatin Calcium (Lipitor*) 10 mg PO BEDTIME [facility] Last Admin: 03/27/19 21:15 Dose: 10 mg Dextrose (Dextrose 50% Vial 50 Ml*) 25 ml IV PUSH .FOR FS < 60 - SS PRN PRN Reason: FS < 60 Gabapentin (Neurontin Cap(*)) 100 mg PO BID [facility] Last Admin: 03/28/19 08:28 Dose: 100 mg Glipizide (Glucotrol Tab*) 5 mg PO DAILY [facility] Last Admin: 03/28/19 09:23 Dose: 5 mg Insulin Human Lispro (Humalog*) 0 units SUBCUT ACHS [facility]; Protocol Last Admin: 03/28/19 13:39 Dose: 3 unit Losartan Potassium (Cozaar Tab*) 25 mg PO DAILY [facility] Last Admin: 03/28/19 09:23 Dose: 25 mg Metoprolol Succinate (Toprol Xl Tab*) 25 mg PO DAILY [facility] Last Admin: 03/28/19 11:29 Dose: 25 mg Vicks Vapo Rub 1 dose TOPICAL Q8H [facility] Last Admin: 03/28/19 09:24 Dose: Not Given Potassium Chloride (Potassium Chloride Liquid) 20 meq PO BID [facility] Last Admin: 03/28/19 11:52 Dose: 20 meq Rivaroxaban (Xarelto(*)) 20 mg PO QPM [facility] Vital Signs - 8 hr 03/28/19 03/28/19 08:00 08:28 Respiratory 19 17 Rate O2 Sat by Pulse 97 Oximetry Oxygen Devices in Use Now: Nasal Cannula Exam: Gen: comfortable, not in distress HEENT: normal Lungs: right basal creps, left basal crackles Cardiac: irregular rhythm , HR in 100s Abdomen: distended, soft, non tender. Skin: no rashes seen Extremities: No cyanosis.trace edema on legs Result Diagrams: 03/28/19 07:54 03/28/19 07:54 Additional Lab and Data: Lab Results 03/18/19 03/18/19 03/18/19 Range/Units 22:05 22:05 22:05 WBC 12.2 H (3.5-10.8) 10^3/uL RBC 5.11 H (3.70-4.87) 10^6 /uL Hgb 14.0 (12.0-16.0) g/dL Hct 42 (35-47) % MCV 82 (80-97) fL MCH 27 (27-31) pg MCHC 33 (31-36) g/dL RDW 14 (10-15) % Plt Count 164 (150-450) 10^3/uL MPV 8.7 (7.4-10.4) fL Neut % (Auto) 91.2 % Lymph % (Auto) 4.2 % [place] % (Auto) 4.2 % Eos % (Auto) 0.0 % Baso % (Auto) 0.4 % Absolute Neuts (auto) 11.1 H (1.5-7.7) 10^3/ul Absolute Lymphs (auto) 0.5 L (1.0-4.8) 10^3/ul Absolute Monos (auto) 0.5 (0-0.8) 10^3/ul Absolute Eos (auto) 0.0 (0-0.6) 10^3/ul Absolute Basos (auto) 0.1 (0-0.2) 10^3/ul Absolute Nucleated RBC 0.0 10^3/ul Nucleated RBC % 0.0 INR (Anticoag Therapy) 1.26 H (0.82-1.09) Sodium 125 L (135-145) mmol/L Potassium 3.8 (3.5-5.0) mmol/L Chloride 95 L (101-111) mmol/L Carbon Dioxide 21 L (22-32) mmol/L Anion Gap 9 (2-11) mmol/L BUN 15 (6-24) mg/dL Creatinine 0.80 (0.51-0.95) mg/dL Est GFR ( Amer) 87.9 (>60) Est GFR (Non-Af Amer) 72.7 (>60) BUN/Creatinine Ratio 18.8 (8-20) Glucose 287 H (70-100) mg/dL Lactic Acid (0.5-2.0) mmol/L Calcium 9.1 (8.6-10.3) mg/dL Total Bilirubin 0.40 (0.2-1.0) mg/dL AST 26 (13-39) U/L ALT 21 (7-52) U/L Alkaline Phosphatase 63 (34-104) U/L Troponin I 0.10 H* (<0.04) ng/mL C-Reactive Protein 399.05 H (<8.01) mg/L Total Protein 7.1 (6.4-8.9) g/dL Albumin 3.6 (3.2-5.2) g/dL Globulin 3.5 (2-4) g/dL Albumin/Globulin Ratio 1.0 (1-3) 03/18/19 Range/Units 22:05 WBC (3.5-10.8) 10^3/uL RBC (3.70-4.87) 10^6 /uL Hgb (12.0-16.0) g/dL Hct (35-47) % MCV (80-97) fL MCH (27-31) pg MCHC (31-36) g/dL RDW (10-15) % Plt Count (150-450) 10^3/uL MPV (7.4-10.4) fL Neut % (Auto) % Lymph % (Auto) % [place] % (Auto) % Eos % (Auto) % Baso % (Auto) % Absolute Neuts (auto) (1.5-7.7) 10^3/ul Absolute Lymphs (auto) (1.0-4.8) 10^3/ul Absolute Monos (auto) (0-0.8) 10^3/ul Absolute Eos (auto) (0-0.6) 10^3/ul Absolute Basos (auto) (0-0.2) 10^3/ul Absolute Nucleated RBC 10^3/ul Nucleated RBC % INR (Anticoag Therapy) (0.82-1.09) Sodium (135-145) mmol/L Potassium (3.5-5.0) mmol/L Chloride (101-111) mmol/L Carbon Dioxide (22-32) mmol/L Anion Gap (2-11) mmol/L BUN (6-24) mg/dL Creatinine (0.51-0.95) mg/dL Est GFR ( Amer) (>60) Est GFR (Non-Af Amer) (>60) BUN/Creatinine Ratio (8-20) Glucose (70-100) mg/dL Lactic Acid 1.9 (0.5-2.0) mmol/L Calcium (8.6-10.3) mg/dL Total Bilirubin (0.2-1.0) mg/dL AST (13-39) U/L ALT (7-52) U/L Alkaline Phosphatase (34-104) U/L Troponin I (<0.04) ng/mL C-Reactive Protein (<8.01) mg/L Total Protein (6.4-8.9) g/dL Albumin (3.2-5.2) g/dL Globulin (2-4) g/dL Albumin/Globulin Ratio (1-3) Microbiology and Other Data: Microbiology 03/21/19 10:08 Nasal Screen MRSA (PCR) - Final Nasal Mrsa Detected 03/18/19 22:05 Aerobic Blood Culture - Preliminary Blood Venous No Growth Day 2 Anaerobic Blood Culture - Preliminary No Growth Day 2 03/18/19 22:05 Aerobic Blood Culture - Preliminary Blood Venous No Growth Day 2 Anaerobic Blood Culture - Preliminary No Growth Day 2 03/18/19 23:18 Urine Culture - Final Urine No Growth (<1,000 CFU/mL) 03/19/19 12:15 Legionella Urinary Antigen - Final Urine Positive Legionella Antigen Streptococcus pneumoniae Ag Screen - Final Negative S. pneumo Antigen Assess/Plan/Problems-Billing 63 year old woman with history of nephrolithiasis, HTN, and tobacco use admitted on 03/19 with back pain and found to have RLL pneumonia on the CT abd/ pelvis and urine legionella antigen positive, in ICU from 03/21-03/24 for hypoxic respiratory failure requiring Vapotherm, s/p thoracocentesis yesterday with only scant fluid obtained. Her course complicated with possible early shingles and anasarca due to malnutrition. - Patient Problems (1) Acute hypoxemic respiratory failure Current Visit: Yes Status: Acute Code(s): J96.01 - ACUTE RESPIRATORY FAILURE WITH HYPOXIA SNOMED Code(s): 714227457 Comment: Legionella pneumonia with right side pleural effusion + MRSA in sputum day 10 azithro; day 6 vanc, off abx requiring ICU stay 03/20- for high flow nasal cannula thoracocentesis 03/24/2019 only scant fluid obtained; LDH/total protein still pending continue abx for now (complete azithromycin tomorrow, vanco completed today), wean down O2 may be some component of pulmonary edema related to hypoalbuminemia which is unlikely to respond to lasix, but low dose po lasix started yesterday; daily weights (2) Atrial fibrillation Current Visit: Yes Status: Acute Code(s): I48.91 - UNSPECIFIED ATRIAL FIBRILLATION SNOMED Code(s): 32273393 Comment: initially with RVR, now resolving this is a new diagnosis for her TTE no valvular changes increase metoprolol xl to 75 mg daily today on therapeutic lovenox for [id number] of 2 for now; can be switched to eliquis or xarelto prior to discharge (3) Shingles Current Visit: Yes Status: Acute Code(s): B02.9 - ZOSTER WITHOUT COMPLICATIONS SNOMED Code(s): 1468992 Comment: new onset of right burning sensation in dermatone distribution, concerning for shingles although no vesicles seen now. Start acyclovir 7 days. (4) COPD exacerbation Current Visit: Yes Status: Acute Code(s): J44.1 - CHRONIC OBSTRUCTIVE PULMONARY DISEASE W (ACUTE) EXACERBATION SNOMED Code(s): 713691222 Comment: complicated with acute COPD exacerbation with ongoing pneumonia completed 3 days of pred burst (5) Nicotine dependence Current Visit: Yes Status: Acute Code(s): F17.200 - NICOTINE DEPENDENCE, UNSPECIFIED, UNCOMPLICATED SNOMED Code(s): 92428177 Comment: on nicotine patch with plans to abstain custodial (6) DVT prophylaxis Current Visit: Yes Status: Acute Code(s): Z29.9 - ENCOUNTER FOR PROPHYLACTIC MEASURES, UNSPECIFIED SNOMED Code(s): 185124794 Comment: therapeutic lovenox (7) Anasarca Current Visit: Yes Status: Acute Code(s): R60.1 - GENERALIZED EDEMA SNOMED Code(s): 980270862 Comment: with marked hypoalbuminemia urine protein 3+ last week random UPCR 0.6 do 24 urine proterin. Status and Disposition: Inpatient Medicine for acute hypoxic respiratory failure, hypokalemia, hypoalbuminemia. Attestation Documenting Resident: Jessenia Nixon Supervising Physician: Parish Lopez Attending/Supervising Physician Comment: Agree with plan as outline din Dr. Nixon's note unless indicated. Legionella PNA completing abx today Continued hypoxia - ambulate and teat IS Hypokalemia - stop lasix, now euvolemic Afib - increase metoprolol and transition to oral NOAC Attestation: This service has been performed in part by a resident under the direction of a teaching physician.I, Parish Lopez, performed the service, or was physically present during the critical, or rodgers portions of the service, furnished by the resident. I participated in the management of the patient.
[2019-03-28] MEDS ORDERED: KCL premix 10MEQ/50 ML x 1 TIME IV ONE (16:00)
[2019-03-28 16:51] LABS: Urine TP Concentration 8 mg/dL
[2019-03-28] MEDS ORDERED: Acyclovir* 400 MG TAB PO SCH (17:00)
[2019-03-28] MEDS ORDERED: Rivaroxaban TAB(*) 20 MG TAB PO SCH (18:00)
[2019-03-28] MEDS: Atorvastatin* 10 MG TAB PO SCH (20:12)
[2019-03-29] MEDS: VICKS VAPO RUB TOPICAL SCH ×2 (02:43→10:49)
--- NOTE | 2019-03-29 07:28 | PN ---
Hospitalist Progress Note Date of Service: 03/29/19 Subjective- Pt has no complaints. Did say feet got more swollen. Pt insists to go home today. Used IS yesterday and walked around a lot. No overnight events Objective- vitals temp-97.6 heart rate-89 resp. rate-21 02 sat-91 room air BP-155/77 general-welll apeearing heart-s1, s2 reg rate rhythm -lungs-bilateral lungs inspiratory rhonchi -abdomen soft, normal, nondistended -extremities- Edema worse at feet at 2+ and 1+ in leg up to knee. normal above knee(slightly edematous). No back pain. labs- rbc-3.51 hgb-10.0 hct-29 abs lymphocytes-0.8 abs monocytes- 1.1 k-3.2 Cl-100 CO2-38 bun-10 creat-1.04 BUN/creat-9.6 Glucose- 164 Ca-8.5 (improved) Assessment/Plan- 63 year old woman with history of nephrolithiasis,HTN, Diabetes,osteoporosis, multiple past stents and tobacco use admitted on 03/19 with back pain and found to have RLL pneumonia on the CT abd/pelvis and urine legionella antigen positive , in ICU from 03/21-03/24 for hypoxic respiratory failure requiring Vapotherm, s/ p thoracocentesis yesterday with only scant fluid obtained. Her course complicated with possible early shingles and anasarca due to malnutrition. (1)Acute hypoxemic respiratory failure, Legionella pneumonia with right side pleural effusion + MRSA in sputum . Azithromycin completed. day 10 azithro(500mg in 250mls/hr @250mls/hr IV); day 5 vancomycin 1,000 mg. 250 mls @166.667 mls/hr IV Q8hrs required ICU stay 03/20- for high flow nasal cannula thoracocentesis 03/24/2019 only scant fluid obtained; LDH/total protein are pending continue abx for now, wean down O2 may be some component of pulmonary edema related to hypoalbuminemia. Lasix stopped due to K+ drop. -Chest X-ray today to see status of pleural effusion and pneumonia (2) Legionella pneumonia Azithromycin completed (500 mg in 250 mls @250 mls/hr) (3) Atrial fibrillation. This is a new diagnosis for her TTE no valvular changes metoprolol (75mg PO daily) +amiodarone (200mg PO daily) on Rivaroxaban 20mg PO QPM for [id number] of 2 for now; can be switched to eliquis or xarelto prior to discharge (4) Hypokalemia maybe related to alkalosis? replete aggressively today and recheck this afternoon -- K Cl 20 meq PO daily (5) Anasarca with marked hypoalbuminemia -urine last week had 3+ protein. Urine total protein is 416 (high) (6) Shingles -new onset of right burning sensation in dermatone distribution, concerning for shingles although no vesicles seen now. -Acyclovir (800mg PO 5x daily)7 days. Stopped. -Gabapentin 100mg PO BID(for pain) (7) COPD exacerbation -complicated with acute COPD exacerbation with ongoing pneumonia completed 3 days of prednisone burst -albuterol/ipratropium(2.5mg/.5mg) 1 neb (8) Nicotine dependence - on nicotine patch with plans to abstain correction (9)Diabetes - lispro sliding scale -Glipizide 5 mg PO daily (10) DVT prophylaxis - Rivaroxaban 20mg PO QPM
[2019-03-29 07:32] LABS: ABS Eosinophils 0.1 10^3/ul (0-0.6); ABS Lymphocytes 0.8 10^3/ul (1.0-4.8); ABS Monocytes 1.1 10^3/ul (0-0.8); ABS Neutrophils 6.4 10^3/ul (1.5-7.7); Eosinophil % 1.2 %; Hematocrit 29 % (35-47); Lymphocyte % 9.7 %; Mean Corpuscular HGB Conc 34 g/dL (31-36); Mean Corpuscular Hemoglobin 28 pg (27-31); Mean Corpuscular Volume 83 fL (80-97); Platelet Count 407 10^3/uL (150-450); Red Blood Count 3.51 10^6 /uL (3.70-4.87); Red Cell Distribution Width 14 % (10-15); White Blood Count 8.5 10^3/uL (3.5-10.8)
[2019-03-29 07:40] LABS: BUN/Creatinine Ratio 9.6 (8-20); Calcium 8.5 mg/dL (8.6-10.3); EGFR Non-African American 53.7 (>60); Potassium 3.2 mmol/L (3.5-5.0)
[2019-03-29] MEDS: Amiodarone TAB* 200 MG PO SCH (10:06)
[2019-03-29] MEDS: Gabapentin CAP(*) 100 MG PO SCH (10:06)
[2019-03-29] MEDS: Metoprolol Succinate XL TAB* 25 MG PO SCH (10:07)
[2019-03-29] MEDS: Losartan TAB* 25 MG PO SCH (10:07)
[2019-03-29] MEDS: Potassium Chloride* LIQUID 20 MEQ/15 ML UDC PO SCH (10:08)
--- NOTE | 2019-03-29 10:10 | PN ---
Progress Note - Progress Note Date of Service: 03/29/19 SOAP: Subjective: CC: pneumonia HPI: 63 year old woman tobacco use and Right sided pneumonia; complicated by pleural effusion, had US guided thoracentesis. Weaned off oxygen. No cough and no shortness of breath with ambulation. Appetite is good. No fever, rash, or diarrhea. Interested in quitting tobacco. Objective: Vital Signs Temp 37.2 C 03/29/19 07:15 Pulse 88 03/29/19 07:15 Resp 20 03/29/19 08:00 BP 157/78 03/29/19 07:15 Pulse Ox 92 03/29/19 07:15 Intake & Output 03/28/19 03/29/19 03/29/19 18:59 06:59 18:59 Intake Total 1070 640 Output Total 0 0 Balance 1070 640 Weight 150 lb 9.6 oz Intake: IV Fluids 350 ABX - VANCOMYCIN 250 potassium 100 Oral 720 640 Output: Urine 0 0 Other: Estimated Void Medium Gen:awake, no distress HEENT: no thrush Heart:RRR no murmur Lungs:scattered rales at bases, no decr BS Abd:+BS NTND soft Skin: no rash Laboratory Results - last 24 hr 03/28/19 03/28/19 03/28/19 11:26 12:12 16:15 WBC RBC Hgb Hct MCV MCH MCHC RDW Plt Count MPV Neut % (Auto) Lymph % (Auto) [place] % (Auto) Eos % (Auto) Baso % (Auto) Absolute Neuts (auto) Absolute Lymphs (auto) Absolute Monos (auto) Absolute Eos (auto) Absolute Basos (auto) Absolute Nucleated RBC Nucleated RBC % Sodium Potassium Chloride Carbon Dioxide Anion Gap BUN Creatinine Est GFR ( Amer) Est GFR (Non-Af Amer) BUN/Creatinine Ratio Glucose POC Glucose (mg/dL) 153 H Calcium Urine Collection Time 24 Urine Total Volume 5200 Ur Total Protein Conc 8 Ur Total Protein 24 Hr 416 H Vancomycin Trough 28.6 03/28/19 03/29/19 03/29/19 16:26 05:37 05:37 WBC 8.5 RBC 3.51 L Hgb 10.0 L Hct 29 L MCV 83 MCH 28 MCHC 34 RDW 14 Plt Count 407 MPV 8.0 Neut % (Auto) 75.4 Lymph % (Auto) 9.7 [place] % (Auto) 13.2 Eos % (Auto) 1.2 Baso % (Auto) 0.5 Absolute Neuts (auto) 6.4 Absolute Lymphs (auto) 0.8 L Absolute Monos (auto) 1.1 H Absolute Eos (auto) 0.1 Absolute Basos (auto) 0.0 Absolute Nucleated RBC 0.0 Nucleated RBC % 0.0 Sodium 145 Potassium 3.2 L Chloride 100 L Carbon Dioxide 38 H Anion Gap 7 BUN 10 Creatinine 1.04 H Est GFR ( Amer) 65.0 Est GFR (Non-Af Amer) 53.7 BUN/Creatinine Ratio 9.6 Glucose 164 H POC Glucose (mg/dL) 125 H Calcium 8.5 L Urine Collection Time Urine Total Volume Ur Total Protein Conc Ur Total Protein 24 Hr Vancomycin Trough Assessment: 1. Community acquired pneumonia, due to Legionella, improving 2. Uncomplicated pleural effusion, parapneumonic 3. tobacco abuse in brief remission 4. T2 diabetes mellitus Plan: 1. Recheck CXR to be sure pleural effusion not getting larger. Assuming that is the case, follow up with me 1 week, recheck CXR 1 month 35 minutes floor time >50% face to face with patient and significant other in counseling regarding above issues
[2019-03-29 12:32] VITALS: BP 154/78
--- NOTE | 2019-03-29 22:44 | DS ---
CC: Dr. Winkler; Dr. Miller * DISCHARGE SUMMARY: DATE OF ADMISSION: 03/19/19 DATE OF DISCHARGE: 03/29/19 PRIMARY CARE PROVIDER: Dr. Winkler. DISPOSITION: Discharged to home. CONDITION ON DISCHARGE: Good. PRIMARY DIAGNOSES: 1. Pneumonia secondary to legionella disease, legionella pneumonia. 2. New atrial fibrillation. 3. Uncomplicated parapneumonic effusion. 4. Hypokalemia. 5. Shingles. 6. Proteinuria. 7. Hypoxic respiratory failure. SECONDARY DIAGNOSES: 1. Diabetes. 2. Chronic obstructive pulmonary disease. 3. Hypertension. 4. Dyslipidemia. MEDICATIONS ON DISCHARGE: Include: 1. Glipizide 5 mg daily. 2. Fluticasone 220 two puffs twice daily. 3. Atorvastatin 10 mg in the evening. 4. Alendronate 70 mg in the evening. 5. Albuterol 2 puffs every 6 hours. 6. Rivaroxaban 20 mg in the evening. 7. Potassium chloride 40 mEq twice daily. 8. Metoprolol succinate 25 mg daily. 9. Losartan 25 mg daily. 10. Gabapentin 100 mg twice daily. 11. Amiodarone 200 mg daily. FOLLOWUP INSTRUCTIONS: At followup, please: 1. Follow BMP for potassium level. 2. Further evaluation of proteinuria as deemed necessary. 3. Ensure followup with Dr. Miller as well as resolution of pleural effusion. PROCEDURES PERFORMED DURING THE HOSPITAL STAY: Thoracentesis, 03/24/19, ultrasound guided. HISTORY OF PRESENT ILLNESS AND HOSPITAL COURSE: This is a 63-year-old female with past medical history as outlined in the history of present illness, date of admission, presented to the hospital with back pain and fever and was found to have sepsis secondary to right lower lobe pneumonia. Ultimately, had positive legionella antigen from urine confirming Legionnaires' disease, which was complicated by parapneumonic effusion, grew nothing out of culture, status post thoracentesis. The hospital stay was notable, the patient was treated with antibiotics, azithromycin and ceftriaxone. She developed new-onset atrial fibrillation, which she was treated with metoprolol and started on amiodarone as well as Lovenox, transitioned to rivaroxaban prior to discharge without complications. Her hypoxic respiratory failure resolved with treatment of her pneumonia as well as gentle diuresis during the course of her hospital stay with Lasix.. She was not discharged on any standing Lasix. Please evaluate volume status at followup. She was noted to have hypokalemia while on diuretics. She underwent vigorous potassium repletion with moderate success. She required standing potassium as well as daily repletion. For this reason, she was discharged on 40 twice daily and no Lasix. Please follow up her potassium at the time of followup. On the day of discharge, she was on room air , tolerating ambulation throughout the hallway, felt back to her usual self. She is motivated to maintain her abstinence with tobacco. There were no other complications during the course of her hospital stay. FOLLOWUP: 1. As indicated above. Follow up potassium, adjust standing potassium as necessary. 2. Evaluate volume status, add Lasix as necessary. 3. Ensure followup with Dr. Miller. 4. Ensure resolution of pleural effusion. 5. Adjust medications for atrial fibrillation as necessary; has been stable during the course of her hospital stay. 6. No other specific labs or vitals. 7. Follow up protein in the urine. The patient did have a 24-hour collection after urinalysis indicated proteinuria. Her 24-hour urine protein was 416 mg for 24 hours, elevated, but not meeting nephrotic range. Reasons to return to the hospital including, but not limited to, recurrent or worsening symptoms including chest pain, shortness of breath, nausea, vomiting, lightheadedness, loss of consciousness, fevers, chills, worsening cough, bleeding from any source were discussed with the patient. She acknowledged understanding. TIME SPENT: Greater than 45 minutes was spent on the discharge of this patient , greater than half was spent [id number] with the patient. [id number]/[facility] #: [id number] [facility]
== END 2019-03-29 15:30 | disposition home or self-care (01) | DRG 720 ==
LOC: ED 19:20 → MEDTELE 03-19 04:49 → ICU 03-21 09:35 → MEDTELE 03-24 15:26
PROVIDERS: ADMIT Internal Medicine; ATTEND Internal Medicine
PROC: 0W993ZX Drainage of Right Pleural Cavity, Percutaneous Approach, Diagnostic (ICD-10-PCS; principal; 2019-03-24)
DX: A41.9 Sepsis, unspecified organism (principal); A48.1 Legionnaires' disease; J18.1 Lobar pneumonia, unspecified organism; J96.01 Acute respiratory failure with hypoxia; J44.0 Chronic obstructive pulmonary disease with (acute) lower respiratory infection; J91.8 Pleural effusion in other conditions classified elsewhere; J44.1 Chronic obstructive pulmonary disease with (acute) exacerbation; E87.2 Acidosis; E46 Unspecified protein-calorie malnutrition; I48.91 Unspecified atrial fibrillation; E87.6 Hypokalemia; B02.9 Zoster without complications; R80.9 Proteinuria, unspecified; E11.9 Type 2 diabetes mellitus without complications; I10 Essential (primary) hypertension; E78.5 Hyperlipidemia, unspecified; M81.0 Age-related osteoporosis without current pathological fracture; F17.210 Nicotine dependence, cigarettes, uncomplicated; K76.0 Fatty (change of) liver, not elsewhere classified; E27.8 Other specified disorders of adrenal gland; Z79.84 Long term (current) use of oral hypoglycemic drugs; Z79.01 Long term (current) use of anticoagulants; Z87.442 Personal history of urinary calculi; Z80.1 Family history of malignant neoplasm of trachea, bronchus and lung; Z68.27 Body mass index [BMI] 27.0-27.9, adult
CPT/HCPCS: 32555; 36415; 36600; 71045; 71046; 71260; 74176; 76604; 80048; 80053; 80061; 80076; 80202; 81003; 81015; 82040; 82565; 82570; 82803; 83036; 83605; 83615; 83735; 84100; 84134; 84155; 84156; 84157; 84484; 84520; 85025; 85610; 86140; 87040; 87070; 87077; 87086; 87186; 87205; 87641; 87899; 89051; 93005; 93306; 94640; 99285; 99406; A9270-GY; J0282; J0456; J0692; J0696; J1650; J1940; J2543; J2920; J3370; J3475; J3480; J3490; J7512; Q9967